=== PATIENT | male | born 1940 | race Caucasian/White ===

== ENCOUNTER 2017-04-27 12:46 | Emergency (ER) | payer MEDICARE, BC ==
--- NOTE | 2017-04-27 13:12 | ER Document Report ---
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 It was then doing fine until 2 days ago when it got inflamed again. He denies remembering getting anything into the finger. Associated Symptoms: None Exacerbated by: Denies Relieved by: Denies Similar symptoms previously: No Recently seen / treated by doctor: No - ROS ROS below otherwise negative: Yes Systems Reviewed and Negative: Yes All other systems reviewed and negative - REPRODUCTIVE Reproductive: DENIES: : Past Medical History - General Information source: Patient - Social History Smoking Status: Never Smoker Frequency of alcohol use: None Drug Abuse: None Lives with: Family Family History: Reviewed & Not Pertinent - Past Medical History Cardiac Medical History: Reports: Hx Coronary Artery Disease, Hx Heart Attack, Hx Hypercholesterolemia, Hx Hypertension Endocrine Medical History: Reports: Hx Diabetes Mellitus Type 2 Renal/ Medical History: Reports: Hx Renal Insufficiency Musculoskeltal Medical History: Reports Hx Arthritis Past Surgical History: Reports: Hx Cardiac Surgery - CABG x4, Hx Kidney (Renal Surgery) - 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 IN LAST 30 DAYS: No - HEENT HEENT: Atraumatic, Normocephalic - NECK Neck: Supple - RESPIRATORY O2 Sat by Pulse Oximetry: 100 - MUSCULOSKELETAL/EXTREMETIES Musculoskeletal/Extremeties: MAEW, FROM, Edema - Mild erythema mild edema to palmar distal phalanx right middle finger. At the DIP he has a healing wound. No pus. - NEURO Level of Consciousness: Awake, Alert Motor/Sensory: No Motor Deficit, No Sensory Deficit Course - Re-evaluation Re-evalutation: 04/27/17 I printed a copy of the x-ray that shows the fine small filaments of foreign body in the subcutaneous tissue of his right third finger and discussed that he will need to see the hand surgeon Dr. St for removal. - Vital Signs Vital signs: Temp Pulse Resp BP Pulse Ox 98.9 F 57 L 14 178/79 H 100 04/27/17 12:52 04/27/17 12:52 04/27/17 12:52 04/27/17 12:52 04/27/17 12:52 Discharge - Discharge Clinical Impression: FB right middle finger Condition: Good Disposition: HOME, SELF-CARE Instructions: Cephalexin ([facility]), Retained Subcutaneous Foreign Object ([facility]) Additional Instructions: call dr. st for removal of the foriegn body to er any signs of increased swelling, fever, increase pain or no pain at all with sweling. Please complete the patient satisfaction survey if you get one, and return it.. If you do not receive a survey, then you can go to the [facility] website, [email or web address] and place your comments about your very good care. Thank you very much. It was a pleasure being your medical provider today. Prescriptions: Cephalexin Monohydrate [Keflex 500 mg Capsule] 500 mg PO QID #28 capsule Referrals: FATEMEH JOHNSON MD [Primary Care Provider] - Follow up as needed
--- NOTE | 2017-04-27 14:31 | RADIOLOGY REPORT (SQ) ---
EXAM DESCRIPTION: FINGER RIGHT COMPLETED DATE/TIME: 04/27/2017 1:53 pm REASON FOR STUDY: possible retained FB COMPARISON: None. NUMBER OF VIEWS: Three views. TECHNIQUE: AP, lateral, and oblique images acquired of the right third finger. LIMITATIONS: None. FINDINGS: MINERALIZATION: Normal. BONES: No acute fracture or dislocation. No worrisome bone lesions. SOFT TISSUES: A very thin radiopaque foreign body is seen in the volar aspect of the right 3rd digit at the level of the distal interphalangeal joint. OTHER: No other significant finding. IMPRESSION: Foreign body. COMMENT: SITE OF TRAUMA/COMPLAINT MARKED/STAMP COMPLETED: Yes TECHNICAL DOCUMENTATION: JOB ID: [id number] [employer]- All Rights Reserved
[2017-04-27 15:01] VITALS: BP 154/70
== END 2017-04-27 15:01 | disposition home or self-care (01) ==
LOC: ER 12:46
DX: S60.452A Superficial foreign body of right middle finger, initial encounter (principal); X58.XXXA Exposure to other specified factors, initial encounter; I25.10 Atherosclerotic heart disease of native coronary artery without angina pectoris; I25.2 Old myocardial infarction; I10 Essential (primary) hypertension; E11.9 Type 2 diabetes mellitus without complications; Z95.1 Presence of aortocoronary bypass graft
CPT/HCPCS: 99283

== ENCOUNTER → 2018-03-15 | Outpatient (CLI) | payer MEDICARE, BC ==
--- NOTE | 2018-03-15 12:43 | RADIOLOGY REPORT (SQ) ---
EXAM DESCRIPTION: MRI LUMBAR SPINE WITHOUT COMPLETED DATE/TIME: 03/15/2018 12:10 pm REASON FOR STUDY: LOW BACK PAIN (M54.5) M54.5 LOW BACK PAIN COMPARISON: None. TECHNIQUE: Sagittal and Axial imaging includes T1, T2, STIR and gradient echo sequences. Coronal T2/ HASTE imaging. LIMITATIONS: None. FINDINGS: VISUALIZED UPPER ABDOMEN: Old right nephrectomy SEGMENTATION: No transitional anatomy. The lowest well-developed disc space is labeled L5-S1. ALIGNMENT: Anatomic. VERTEBRAE: Intact. BONE MARROW: Fatty degenerative endplate changes throughout the lumbar spine DISC SIGNAL: High-grade disc space loss of height. Decreased T2 weighted intervertebral disc signal throughout the spine POSTERIOR ELEMENTS: Generally intact. No pars defect evident. HARDWARE: None in the spine. CORD AND CONUS: Normal in size and signal intensity. Conus at the mid L1 level. SOFT TISSUES: No aortic aneurysm seen. No bulky retroperitoneal adenopathy or mass. No paraspinal mas s or fluid. T10-11: At the upper edge of the field of view. Mild central canal stenosis from broad diffuse disc bulge and bulky bilateral facet hypertrophy. Moderate to high-grade bilateral foraminal narrowing T11-12: Mild central canal stenosis results from broad diffuse posterior disc bulge and bulky bilate ral facet hypertrophy. High-grade bilateral foraminal narrowing. T12-L1: Mild central canal stenosis results from broad diffuse posterior disc bulge and moderate malcom ateral facet and ligament hypertrophy. Moderate bilateral foraminal narrowing is present. L1-L2: Mild central canal stenosis results from broad diffuse posterior disc bulge and bulky bilatera l facet and ligament hypertrophy. Kybv-[id number]-cdbzumxy bilateral foraminal narrowing L2-L3: Mild central canal stenosis results from broad diffuse disc bulge and bony spurring and bulky bilateral facet and ligament hypertrophy. Mild right, mild to moderate left foraminal narrowing. L3-L4: Severe central canal stenosis results from broad diffuse posterior disc bulge and bulky bilate ral facet and ligament hypertrophy. Effacement of the CSF around the lumbar nerve roots. Mild right , mild to moderate left foraminal narrowing without exiting L3 nerve root impingement L4-L5: Severe central canal stenosis results from broad diffuse posterior disc bulge and bony spurrin g and moderate bulky bilateral facet and ligament hypertrophy. Moderate to high-grade right, moderat e left foraminal narrowing. L5-S1: Mild central canal narrowing results from broad diffuse posterior disc bulge with a small cent ral disc protrusion. Mild flattening of the thecal sac at the takeoff of the bilateral S1 nerve root s in the lateral recesses left greater than right. Moderate to high-grade bilateral foraminal narrow ing. SACRUM: Visualized upper sacrum intact. OTHER: No other significant findings. IMPRESSION: Diffuse degenerative changes as above TECHNICAL DOCUMENTATION: JOB ID: [id number] [employer]- All Rights Reserved Reading location - IP/workstation name: [email or web address]
== END ==
LOC: RAD 10:57
PROVIDERS: ATTEND Physician Assistant
DX: M54.5 Low back pain (principal)
CPT/HCPCS: 72148

== ENCOUNTER 2019-02-01 09:53 | Inpatient (IN) | payer MEDICARE, BC ==
[2019-02-01 10:28] LABS: VENOUS BLOOD HCO3 14.1 mmol/L (20-32); VENOUS BLOOD PH 7.25 (7.30-7.42)
[2019-02-01] MEDS ORDERED: NORMAL SALINE 1000 ML 1,000 ML IV ONE ×2 (10:28→11:51)
[2019-02-01 10:29] LABS: ABSOLUTE LYMPHOCYTES (AUTO) 0.6 10^3/uL (0.5-4.7); ABSOLUTE MONOCYTES (AUTO) 0.5 10^3/uL (0.1-1.4); ABSOLUTE NEUT (AUTO) 6.6 10^3/uL (1.7-8.2); BASOPHILS % (AUTO) 0.2 % (0-2); HEMATOCRIT 37.6 % (37.9-51.0); HEMOGLOBIN 12.5 g/dL (13.5-17.0); LYMPHOCYTES % (AUTO) 7.3 % (13-45); MEAN CORPUSCULAR HGB CONC 33.2 g/dL (32.0-36.0); MEAN CORPUSCULAR VOLUME 97 fl (80-97); MONOCYTES % (AUTO) 6.4 % (3-13); PLATELET COUNT 103 10^3/uL (150-450); RED BLOOD COUNT 3.89 10^6/uL (4.35-5.55); RED CELL DISTRIBUTION WIDTH 14.9 % (11.5-14.0); SEGMENTED NEUTROPHILS % (AUTO) 86.1 % (42-78); TOTAL CELLS COUNTED % (AUTO) 100 %; WHITE BLOOD COUNT 7.6 10^3/uL (4.0-10.5)
--- NOTE | 2019-02-01 10:31 | ER Document Report ---
ED Dizziness/Weakness - General Stated Complaint: ALTERED MENTAL STATUS Time Seen by Provider: 02/01/19 10:09 Notes: Patient is a 78-year-old male with a history of type 1 diabetes, triple bypass with AICD placement who presents to the emergency department with altered mental status. Per EMS the reports he was last seen normal at 9 PM last night. She reports they do sleep in separate bedrooms. EMS reports that the patient was not acting quite right yesterday but did have a fall and is more altered this morning. They report that the patient went to sit in a chair when he fell onto his left side. Patient does have an abrasion to the left knee. Patient is confused and having trouble speaking. Patient unable to give history. Patient does deny pain at this time. TRAVEL OUTSIDE OF THE [place] IN LAST 30 DAYS: No - Related Data Allergies/Adverse Reactions: No Known Allergies Allergy (Verified 02/01/19 11:20) Past Medical History - General Cannot obtain history due to: Altered mental status - Social History Smoking Status: Unknown if Ever Smoked Lives with: Family Family History: Reviewed & Not Pertinent - Past Medical History Cardiac Medical History: Reports: Hx Coronary Artery Disease, Hx Heart Attack, Hx Hypercholesterolemia, Hx Hypertension Pulmonary Medical History: Reports: None EENT Medical History: Reports: None Neurological Medical History: Reports: None Endocrine Medical History: Reports: Hx Diabetes Mellitus Type 1 Renal/ Medical History: Reports: Hx Renal Insufficiency. 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, Hx Orthopedic Surgery - right total knee - Immunizations Hx Diphtheria, Pertussis, Tetanus Vaccination: No Review of Systems - Review of Systems Constitutional: See HPI EENT: No symptoms reported Cardiovascular: See HPI Respiratory: No symptoms reported Gastrointestinal: No symptoms reported Genitourinary: No symptoms reported Male Genitourinary: No symptoms reported Musculoskeletal: No symptoms reported Skin: No symptoms reported Hematologic/Lymphatic: No symptoms reported Neurological/Psychological: See HPI Physical Exam - Vital signs Vitals: Pulse Resp BP Pulse Ox 82 17 101/52 L 96 02/01/19 10:00 02/01/19 10:00 02/01/19 10:00 02/01/19 10:00 - Notes Notes: GENERAL: Well-appearing, no acute distress. HEAD: Atraumatic, normocephalic. EYES: Pupils equal round and reactive to light, extraocular movements intact, sclera anicteric, conjunctiva are normal. ENT: Nares patent, oropharynx clear without exudates. Dry mucous membranes. NECK: Normal range of motion, supple without lymphadenopathy or JVD. LUNGS: Breath sounds clear to auscultation bilaterally and equal. No wheezes rales or rhonchi. HEART: Regular rate and rhythm without murmurs, rubs or gallops. ABDOMEN: Soft, nontender, normoactive bowel sounds. No guarding, no rebound. No masses appreciated. BACK: No cervical, thoracic, lumbar midline tenderness. No saddle anesthesia, normal distal neurovascular exam. GENITOURINARY: Deferred. EXTREMITIES: Normal range of motion, no pitting or edema. No clubbing or cyanosis. Abrasion to left knee. NEUROLOGICAL: When asking the patient where he is at; he states "1941," Patient does know his name but does appear to have expressive aphasia, and trouble speaking. + left sided facial droop. Patient unable to perform finger to nose exam, no arm drift noted, unable to perform heel to ramos testing. Did not attempt to walk patient due to complaint and fall. PSYCH: Normal mood, normal affect. SKIN: Warm, Dry, normal turgor, no rashes or lesions noted. Course - Re-evaluation Re-evalutation: 02/01/19 10:30 Patient symptoms are consistent with a stroke. Patient does have a left-sided facial droop with expressive aphasia and difficulty speaking. Patient is only alert to himself and does have repetitive speech. Will obtain a head CT, appropriate lab work, EKG and chest x-ray. While at the bedside patient did have equal semi-strong restaurant hourly team member bilaterally but when attempting to hand him the cup he had difficulty grasping the cup for the p.o. challenge. Patient was able to swallow multiple sips of water without coughing. Will obtain more of a history when the arrived to the emergency department. 02/01/19 10:37 Patient did have an episode of vomiting and coughing. I did order an anti- emetic and for bedside suctioning to be present at all times. Patient to go to CAT scan immediately. Case was briefly discussed with Dr. Rivera who recommends obtaining a CTA of the head and neck. I did speak with CAT scan to change his order. is at the bedside and reports that he was sluggish yesterday but was able to have a conversation it was ambulating without any difficulty. She reports he did go to bed around 9 PM last night. She reports he has been a type I diabetic for most of his life and does wear an insulin pump which was removed throughout the night at some point. She reports around 830 this morning she attempted to wake up the patient to feed him breakfast but he was not acting h imself. She reports he attempted to sit in a chair that was not they are and did not fall on his bottom and caused him to hit the left side. She reports he did not hit his head at that time or lose consciousness. She reports he has had a facial droop and difficulty speaking. She does report that the patient is on Xarelto. 02/01/19 12:13 CT of the head and neck were negative for any acute abnormality. Upon reevaluation patient is fidgety and moving his upper and lower extremities. Patient does remain confused. Patient is getting his second liter of IV fluids. Patient's lab work is consistent with a mild DKA. Urinalysis was unremarkable. Son who is at the bedside states he is seeing his father act like this when he has issues with his sugar. states that patient has been having issues with his insulin pump and she is sure if it has been working. 02/01/19 12:21 Dr. Munson accepts admission and will see patient in the ER. Will continue with 2nd liter of fluid. - Vital Signs Vital signs: Temp Pulse Resp BP Pulse Ox 97.9 F 82 16 99/53 L 99 02/01/19 10:11 02/01/19 10:10 02/01/19 12:06 02/01/19 12:06 02/01/19 11:52 - Laboratory Result Diagrams: 02/01/19 10:07 02/01/19 10:07 Laboratory results interpreted by me: 02/01/19 02/01/19 02/01/19 10:07 10:07 10:07 RBC 3.89 L Hgb 12.5 L Hct 37.6 L RDW 14.9 H Plt Count 103 L Lymph % (Auto) 7.3 L Seg Neutrophils % 86.1 H VBG pH VBG pCO2 VBG HCO3 Potassium 5.7 H Carbon Dioxide 17 L Anion Gap 24 H BUN 49 H Creatinine 1.72 H Est GFR ( Amer) 47 L Est GFR (MDRD) Non-Af 39 L Glucose 357 H POC Glucose Hemoglobin A1c % Lactic Acid 3.2 H Direct Bilirubin 0.5 H Total Protein 5.9 L Urine Ketones Urine Ascorbic Acid 02/01/19 02/01/19 02/01/19 10:07 10:07 10:09 RBC Hgb Hct RDW Plt Count Lymph % (Auto) Seg Neutrophils % VBG pH 7.25 L VBG pCO2 33.0 L VBG HCO3 14.1 L Potassium Carbon Dioxide Anion Gap BUN Creatinine Est GFR ( Amer) Est GFR (MDRD) Non-Af Glucose POC Glucose 353 H Hemoglobin A1c % 6.4 H Lactic Acid Direct Bilirubin Total Protein Urine Ketones Urine Ascorbic Acid 02/01/19 02/01/19 10:37 12:25 RBC Hgb Hct RDW Plt Count Lymph % (Auto) Seg Neutrophils % VBG pH VBG pCO2 VBG HCO3 Potassium Carbon Dioxide Anion Gap BUN Creatinine Est GFR ( Amer) Est GFR (MDRD) Non-Af Glucose POC Glucose 335 H Hemoglobin A1c % Lactic Acid Direct Bilirubin Total Protein Urine Ketones 20 H Urine Ascorbic Acid 20 H 02/01/19 13:54 Laboratory 02/01/19 02/01/19 02/01/19 10:07 10:07 10:07 WBC 7.6 RBC 3.89 L Hgb 12.5 L Hct 37.6 L MCV 97 MCH 32.0 MCHC 33.2 RDW 14.9 H Plt Count 103 L Lymph % (Auto) 7.3 L [place] % (Auto) 6.4 Eos % (Auto) 0.0 Baso % (Auto) 0.2 Absolute Neuts (auto) 6.6 Absolute Lymphs (auto) 0.6 Absolute Monos (auto) 0.5 Absolute Eos (auto) 0.0 Absolute Basos (auto) 0.0 Seg Neutrophils % 86.1 H VBG pH VBG pCO2 VBG HCO3 VBG Base Excess Sodium 138.8 Potassium 5.7 H Chloride 98 Carbon Dioxide 17 L Anion Gap 24 H BUN 49 H Creatinine 1.72 H Est GFR ( Amer) 47 L Est GFR (MDRD) Non-Af 39 L Glucose 357 H POC Glucose Lactic Acid 3.2 H Calcium 9.2 Total Bilirubin 1.3 Direct Bilirubin 0.5 H Neonat Total Bilirubin Not Reportable Neonat Direct Bilirubin Not Reportable Neonat Indirect Bili Not Reportable AST 30 ALT 26 Alkaline Phosphatase 81 Troponin I Total Protein 5.9 L Albumin 3.8 Urine Color Urine Appearance Urine pH Ur Specific [place] Urine Protein Urine Glucose (UA) Urine Ketones Urine Blood Urine Nitrite Urine Bilirubin Urine Urobilinogen Ur Leukocyte Esterase Urine WBC (Auto) Urine RBC (Auto) U Hyaline Cast (Auto) Squamous Epi Cells Auto Urine Mucus (Auto) Urine Ascorbic Acid 02/01/19 02/01/19 02/01/19 10:07 10:07 10:09 WBC RBC Hgb Hct MCV MCH MCHC RDW Plt Count Lymph % (Auto) [place] % (Auto) Eos % (Auto) Baso % (Auto) Absolute Neuts (auto) Absolute Lymphs (auto) Absolute Monos (auto) Absolute Eos (auto) Absolute Basos (auto) Seg Neutrophils % VBG pH 7.25 L VBG pCO2 33.0 L VBG HCO3 14.1 L VBG Base Excess -12.0 Sodium Potassium Chloride Carbon Dioxide Anion Gap BUN Creatinine Est GFR ( Amer) Est GFR (MDRD) Non-Af Glucose POC Glucose 353 H Lactic Acid Calcium Total Bilirubin Direct Bilirubin Neonat Total Bilirubin Neonat Direct Bilirubin Neonat Indirect Bili AST ALT Alkaline Phosphatase Troponin I 0.014 Total Protein Albumin Urine Color Urine Appearance Urine pH Ur Specific [place] Urine Protein Urine Glucose (UA) Urine Ketones Urine Blood Urine Nitrite Urine Bilirubin Urine Urobilinogen Ur Leukocyte Esterase Urine WBC (Auto) Urine RBC (Auto) U Hyaline Cast (Auto) Squamous Epi Cells Auto Urine Mucus (Auto) Urine Ascorbic Acid 02/01/19 02/01/19 10:37 12:25 WBC RBC Hgb Hct MCV MCH MCHC RDW Plt Count Lymph % (Auto) [place] % (Auto) Eos % (Auto) Baso % (Auto) Absolute Neuts (auto) Absolute Lymphs (auto) Absolute Monos (auto) Absolute Eos (auto) Absolute Basos (auto) Seg Neutrophils % VBG pH VBG pCO2 VBG HCO3 VBG Base Excess Sodium Potassium Chloride Carbon Dioxide Anion Gap BUN Creatinine Est GFR ( Amer) Est GFR (MDRD) Non-Af Glucose POC Glucose 335 H Lactic Acid Calcium Total Bilirubin Direct Bilirubin Neonat Total Bilirubin Neonat Direct Bilirubin Neonat Indirect Bili AST ALT Alkaline Phosphatase Troponin I Total Protein Albumin Urine Color YELLOW Urine Appearance SLIGHTLY-CLOUDY Urine pH 5.0 Ur Specific [place] 1.016 Urine Protein NEGATIVE Urine Glucose (UA) NEGATIVE Urine Ketones 20 H Urine Blood NEGATIVE Urine Nitrite NEGATIVE Urine Bilirubin NEGATIVE Urine Urobilinogen NEGATIVE Ur Leukocyte Esterase NEGATIVE Urine WBC (Auto) 1 Urine RBC (Auto) 1 U Hyaline Cast (Auto) 95 Squamous Epi Cells Auto <1 Urine Mucus (Auto) RARE Urine Ascorbic Acid 20 H Lactate is slightly elevated at 3.2. Patient has an elevated BUN and creatinine and a potassium of 5.7. There is no leukocytosis or significant anemia. Patient does not have a urinary tract infection. Patient in a metabolic acidosis with a DKA. - Diagnostic Test Radiology reviewed: Reports reviewed Radiology results interpreted by me: 02/01/19 13:12 Knee X-Ray 02/01/19 10:22 IMPRESSION: No acute osseous abnormality of the left knee. Chest X-Ray 02/01/19 10:23 IMPRESSION: Left basilar atelectasis. Head CTA 02/01/19 10:38 IMPRESSION: NO CTA EVIDENCE OF STENOSIS OR ANEURYSM OF THE [place]. Neck CTA 02/01/19 10:38 IMPRESSION: NORMAL CTA OF THE EXTRA-CRANIAL CAROTID AND VERTEBRAL ARTERIES. Discharge - Discharge Clinical Impression: Confusion, Acidosis, metabolic Altered mental state Qualifiers: Altered mental status type: unspecified Qualified Code(s): R41.82 - Altered mental status, unspecified DKA, type 1 Qualifiers: Diabetes mellitus complication detail: without coma Qualified Code(s): E10.10 - Type 1 diabetes mellitus with ketoacidosis without coma Condition: Stable Disposition: ADMITTED INPATIENT Admitting Provider: Jeimy (Hospitalist) Unit Admitted: [facility]
[2019-02-01] MEDS ORDERED: ONDANSETRON HCL INJ/PF 4 MG/2 ML SDV IV ONE (10:36)
[2019-02-01 10:53] LABS: ALBUMIN 3.8 g/dL (3.5-5.0); ALKALINE PHOSPHATASE 81 U/L (38-126); ANION GAP 24 (5-19); ASPARTATE AMINO TRANSFERASE 30 U/L (17-59); BILIRUBIN,DIRECT 0.5 mg/dL (0.0-0.4); BILIRUBIN,TOTAL 1.3 mg/dL (0.2-1.3); BLOOD UREA NITROGEN 49 mg/dL (7-20); CALCIUM 9.2 mg/dL (8.4-10.2); CARBON DIOXIDE 17 mmol/L (22-30); CHLORIDE 98 mmol/L (98-107); GLUCOSE 357 mg/dL (75-110); POTASSIUM 5.7 mmol/L (3.6-5.0); TOTAL PROTEIN 5.9 g/dL (6.3-8.2)
[2019-02-01 11:26] LABS: APPEARANCE,URINE SLIGHTLY-CLOUDY; BILIRUBIN,URINE NEGATIVE (NEGATIVE); COLOR,URINE YELLOW; GLUCOSE, URINE NEGATIVE (NEGATIVE); KETONES,URINE 20 mg/dL (NEGATIVE); LEUKOCYTE ESTERASE,URINE NEGATIVE (NEGATIVE); NITRITE,URINE NEGATIVE (NEGATIVE); PROTEIN,URINE NEGATIVE (NEGATIVE); URINE SPECIFIC GRAVITY 1.016; UROBILINOGEN,URINE NEGATIVE mg/dL (<2.0)
--- NOTE | 2019-02-01 11:33 | RADIOLOGY REPORT (SQ) ---
EXAM DESCRIPTION: CTA NECK COMPLETED DATE/TIME: 02/01/2019 11:12 am REASON FOR STUDY: AMS COMPARISON: None. TECHNIQUE: Axial dynamic scanning technique with dynamic contrast enhancement through the extra-handicraft or hobby shop manager nial carotid and vertebral arteries. Multiplanar reconstruction. 3-D MIPS and Volume-rendered imag es acquired at the workstation and saved to PACS. Images are reviewed in soft tissue, bone, lung w indows. All CT scanners at this facility use dose modulation, iterative reconstruction, and/or weight based d osing when appropriate to reduce radiation dose to as low as reasonably achievable (ALARA). [facility]: Dose Right [facility]: CareDose [facility]: Dose Right [facility]: Teradose 4D [facility]: GoodChime! CONTRAST TYPE AND DOSE: 69 mL Omnipaque 350- low osmolar. RENAL FUNCTION: Creatinine 1.7 LIMITATIONS: None. FINDINGS: AORTIC ARCH: Normal three-vessel origin. Bilateral subclavian arteries are patent. No d issection. RIGHT CAROTIDS: Patent common, internal and external carotid arteries without suggestion of significa nt stenosis or irregular plaque. No dissection. RIGHT VERTEBRAL: Patent. No dissection. LEFT CAROTIDS: Patent common, internal and external carotid arteries without suggestion of significan t stenosis or irregular plaque. No dissection. LEFT VERTEBRAL: Patent. No dissection. OTHER: No other significant finding. OTHER: 3-D reconstructions confirm findings. IMPRESSION: NORMAL CTA OF THE EXTRA-CRANIAL CAROTID AND VERTEBRAL ARTERIES. COMMENT: Quality ID #[id number]: Measurements of distal internal carotid diameter were used as the denomina tor for stenosis measurement. TECHNICAL DOCUMENTATION: JOB ID: [id number] Quality ID # [id number]: Final reports with documentation of one or more dose reduction techniques (e.g., Au tomated exposure control, adjustment of the mA and/or kV according to patient size, use of iterative reconstruction technique) 2010 [employer]- All Rights Reserved Reading location - IP/workstation name: [email or web address]
--- NOTE | 2019-02-01 11:35 | RADIOLOGY REPORT (SQ) ---
EXAM DESCRIPTION: KNEE LEFT 3 VIEWS COMPLETED DATE/TIME: 02/01/2019 11:17 am REASON FOR STUDY: fall, abrasion left knee COMPARISON: None. NUMBER OF VIEWS: Four views. TECHNIQUE: AP, lateral, and both oblique radiographic images acquired of the left knee. LIMITATIONS: None. FINDINGS: MINERALIZATION: Normal. BONES: No acute fracture or dislocation. JOINT: No effusion or evidence of lipoma hemarthrosis. SOFT TISSUES: No swelling. The quadriceps and patellar tendon silhouettes are intact OTHER: Vascular calcifications and surgical clips. IMPRESSION: No acute osseous abnormality of the left knee. TECHNICAL DOCUMENTATION: JOB ID: [id number] [employer]- All Rights Reserved Reading location - IP/workstation name: [email or web address]
--- NOTE | 2019-02-01 11:38 | RADIOLOGY REPORT (SQ) ---
EXAM DESCRIPTION: CTA HEAD COMPLETED DATE/TIME: 02/01/2019 11:12 am REASON FOR STUDY: AMS COMPARISON: None. TECHNIQUE: Post IV contrast scanning, thin section axial imaging through the brain to evaluate the a rterial structures. Source and MIP images are saved and reviewed on PACS. Advanced 3D imaging as volume-rendering, MIPs, SSD performed? yes All CT scanners at this facility use dose modulation, iterative reconstruction, and/or weight based d osing when appropriate to reduce radiation dose to as low as reasonably achievable (ALARA). [facility]: Dose Right [facility]: CareDose [facility]: Dose Right [facility]: Teradose 4D [facility]: monEchelle CONTRAST TYPE AND DOSE: contrast/concentration: Isovue 350.00 mg/ml; Total Contrast Delivered: 69.0 ml; Total Saline Delivered: 72.0 ml RENAL FUNCTION: Creatinine 1.7 LIMITATIONS: None. FINDINGS: [place]: The anterior, middle, posterior cerebral arteries are all patent. No ev idence of aneurysm or focal stenosis. POSTERIOR CIRCULATION: The distal vertebral arteries are patent as is the basilar artery. No aneurysm . BRAIN: No gross enhancing lesions. Involutional changes with mild chronic microvascular ischemia. BONES: Intact as visualized. SINUSES: No fluid or mucosal thickening. OTHER: No other significant finding. IMPRESSION: NO CTA EVIDENCE OF STENOSIS OR ANEURYSM OF THE [place]. TECHNICAL DOCUMENTATION: JOB ID: [id number] Quality ID # [id number]: Final reports with documentation of one or more dose reduction techniques (e.g., Au tomated exposure control, adjustment of the mA and/or kV according to patient size, use of iterative reconstruction technique) 2010 [employer]- All Rights Reserved Reading location - IP/workstation name: [email or web address]
--- NOTE | 2019-02-01 11:38 | RADIOLOGY REPORT (SQ) ---
EXAM DESCRIPTION: CHEST SINGLE VIEW COMPLETED DATE/TIME: 02/01/2019 11:17 am REASON FOR STUDY: altered, cough COMPARISON: None. EXAM PARAMETERS: NUMBER OF VIEWS: One view. TECHNIQUE: Single frontal radiographic view of the chest acquired. RADIATION DOSE: NA LIMITATIONS: None. FINDINGS: LUNGS AND PLEURA: Left basilar atelectasis. There is no consolidation, sizeable pleural e ffusion or pneumothorax. MEDIASTINUM AND HILAR STRUCTURES: Unchanged mediastinal and hilar contours HEART AND VASCULAR STRUCTURES: The cardiac silhouette and pulmonary vasculature are within normal good its given AP technique. BONES: No acute findings. HARDWARE: Sternotomy wires, mediastinal clips, and left subclavian approach ICD. OTHER: No other finding. IMPRESSION: Left basilar atelectasis. TECHNICAL DOCUMENTATION: JOB ID: [id number] [employer]- All Rights Reserved Reading location - IP/workstation name: [email or web address]
[2019-02-01] MEDS ORDERED: GLUCAGON,HUMAN RECOMB 1 MG INJ IM PRN ×2 (13:15→13:30)
[2019-02-01] MEDS ORDERED: NORMAL SALINE 100 ML with INSULIN REGULAR, HUMAN 100 UNIT IV PRN ×2 (13:15)
[2019-02-01] MEDS ORDERED: DEXTROSE 40% GEL 15 GM TUBE PO PRN ×6 (13:15→13:35)
[2019-02-01] MEDS ORDERED: DEXTROSE 50%-WATER 25 GM/50 ML DISP.SYRIN IV PRN ×6 (13:15→13:35)
[2019-02-01] MEDS ORDERED: GLUCAGON,HUMAN RECOMB 1 MG INJ SUBCUT PRN (13:35)
--- NOTE | 2019-02-01 14:47 | PDOC H&P ---
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 Patient was reportedly not acting right yesterday and had a fall incident this morning. He was reportedly having trouble speaking and was not very coherent. He reportedly had a mild left facial droop in the ER hence a CTA of the head and neck was done and this came back unremarkable. Upon encounter in the ER, patient is arousable. He is able to tell me his name. He denies acute complaints to me but is not oriented to time or place. He denies headache, chest pain or shortness of breath. RN reports that patient has been having issues with a malfunctioning insulin pump lately. Based on prior admissions, he was admitted before due to DKA and presented with acute confus ion. Past Medical History Cardiac Medical History: Reports: Coronary Artery Disease, Myocardial Infarction, Hyperlipidema, Hypertension Pulmonary Medical History: Reports: None EENT Medical History: Reports: None Neurological Medical History: Reports: None Endocrine Medical History: Reports: Diabetes Mellitus Type 1 Malignancy Medical History: Reports: None GI Medical History: Reports: None Musculoskeltal Medical History: Reports: Arthritis Skin Medical History: Reports: None Psychiatric Medical History: Reports: None Traumatic Medical History: Reports: None Infectious Medical History: Reports: None Past Surgical History Past Surgical History: Reports: Orthopedic Surgery - right total knee Social History Lives with: Family Smoking Status: Never Smoker Frequency of Alcohol Use: None Hx Recreational Drug Use: No Hx Prescription Drug Abuse: No Family History Family History: Reviewed & Not Pertinent Parental Family History Reviewed: Yes - no premature CAD Children Family History Reviewed: No Sibling(s) Family History Reviewed.: No Medication/Allergy Home Medications: Apedria 150 units SUBCUT CONTINUOUS PRN 11/01/12 Aspirin [Ecotrin 81 mg EC Tablet] 81 mg PO DAILY 11/01/12 Lisinopril 5 mg PO DAILY 11/01/12 Dorzolamide HCl/Timolol Maleat [Cosopt Oph Soln 10 ml] 2.23 bottle OS BID 11/02/12 Bimatoprost [Lumigan 0.01% Oph Soln 2.5 ml/Bottle] 1 drop DAILY 12/22/15 Carvedilol [Coreg 12.5 mg Tablet] 12.5 mg PO Q12 12/22/15 Pravastatin Sodium 40 mg PO QHS 12/22/15 Cephalexin Monohydrate [Keflex 500 mg Capsule] 500 mg PO QID #28 capsule 04/27/17 Allergies/Adverse Reactions: No Known Allergies Allergy (Verified 02/01/19 11:20) Review of Systems All systems: reviewed and no additional remarkable complaints except as stated - as mentioned in HPI Physical Exam Vital Signs: Temp Pulse Resp BP Pulse Ox 97.9 F 82 16 99/53 L 99 02/01/19 10:11 02/01/19 10:10 02/01/19 12:06 02/01/19 12:06 02/01/19 11:52 Intake & Output 01/31/19 02/01/19 02/02/19 06:59 06:59 06:59 Intake Total 1999 Balance 1999 Weight 190 lb 0.615 oz General appearance: PRESENT: no acute distress, well-developed, well-nourished Head exam: PRESENT: atraumatic, normocephalic Eye exam: PRESENT: conjunctiva pink, EOMI, PERRLA. ABSENT: scleral icterus Ear exam: PRESENT: normal external ear exam Mouth exam: PRESENT: moist, tongue midline Neck exam: ABSENT: carotid bruit, JVD, lymphadenopathy, thyromegaly Respiratory exam: PRESENT: clear to auscultation malcom. ABSENT: rales, rhonchi, wheezes Cardiovascular exam: PRESENT: RRR. ABSENT: diastolic murmur, rubs, systolic mu rmur Pulses: PRESENT: normal dorsalis pedis pul GI/Abdominal exam: PRESENT: normal bowel sounds, soft. ABSENT: distended, guarding, mass, organolmegaly, rebound, tenderness Rectal exam: PRESENT: deferred Neurological exam: PRESENT: awake, oriented to person, CN II-XII grossly intact. ABSENT: oriented to place, oriented to time, oriented to situation, motor sensory deficit Results Laboratory Results: 02/01/19 10:07 02/01/19 10:07 02/01/19 02/01/19 02/01/19 10:07 10:07 10:07 WBC 7.6 RBC 3.89 L Hgb 12.5 L Hct 37.6 L MCV 97 MCH 32.0 MCHC 33.2 RDW 14.9 H Plt Count 103 L Seg Neutrophils % 86.1 H VBG pH VBG pCO2 VBG HCO3 VBG Base Excess Sodium 138.8 Potassium 5.7 H Chloride 98 Carbon Dioxide 17 L Anion Gap 24 H BUN 49 H Creatinine 1.72 H Est GFR ( Amer) 47 L Glucose 357 H Lactic Acid 3.2 H Calcium 9.2 Total Bilirubin 1.3 AST 30 Alkaline Phosphatase 81 Total Protein 5.9 L Albumin 3.8 Urine Color Urine Appearance Urine pH Ur Specific [place] Urine Protein Urine Glucose (UA) Urine Ketones Urine Blood Urine Nitrite Ur Leukocyte Esterase Urine WBC (Auto) Urine RBC (Auto) 02/01/19 02/01/19 10:07 10:37 WBC RBC Hgb Hct MCV MCH MCHC RDW Plt Count Seg Neutrophils % VBG pH 7.25 L VBG pCO2 33.0 L VBG HCO3 14.1 L VBG Base Excess -12.0 Sodium Potassium Chloride Carbon Dioxide Anion Gap BUN Creatinine Est GFR ( Amer) Glucose Lactic Acid Calcium Total Bilirubin AST Alkaline Phosphatase Total Protein Albumin Urine Color YELLOW Urine Appearance SLIGHTLY-CLOUDY Urine pH 5.0 Ur Specific [place] 1.016 Urine Protein NEGATIVE Urine Glucose (UA) NEGATIVE Urine Ketones 20 H Urine Blood NEGATIVE Urine Nitrite NEGATIVE Ur Leukocyte Esterase NEGATIVE Urine WBC (Auto) 1 Urine RBC (Auto) 1 02/01/19 10:07 Troponin I 0.014 Impressions: Knee X-Ray 02/01/19 10:22 IMPRESSION: No acute osseous abnormality of the left knee. Chest X-Ray 02/01/19 10:23 IMPRESSION: Left basilar atelectasis. Head CTA 02/01/19 10:38 IMPRESSION: NO CTA EVIDENCE OF STENOSIS OR ANEURYSM OF THE [place]. Neck CTA 02/01/19 10:38 IMPRESSION: NORMAL CTA OF THE EXTRA-CRANIAL CAROTID AND VERTEBRAL ARTERIES. Assessment and Plan - Diagnosis (1) Acute encephalopathy Is this a current diagnosis for this admission?: Yes Plan: Likely related to DKA. CTA of the head and neck was unremarkable. No nuchal rigidity, Kernig's or Brudzinski's signs on examination. Chest x-ray and urinalysis are unremarkable. Based on prior admissions, he was admitted before due to DKA and presented with acute confusion. (2) DKA (diabetic ketoacidoses) Qualifiers: Diabetes mellitus type: type 1 Diabetes mellitus complication detail: without coma Qualified Code(s): E10.10 - Type 1 diabetes mellitus with ketoacidosis without coma Is this a current diagnosis for this admission?: Yes Plan: He has received 2 L of fluid bolus in the ER. Will continue cautious hydration with normal saline 100 cc/h due to his congestive heart failure. We will start him on insulin drip. BMP every 4 hours. Accu-Cheks q. hourly. (3) Lactic acidosis Is this a current diagnosis for this admission?: Yes Plan: IV fluids as mentioned. Repeat lactic acid. (4) Acute on chronic renal failure Is this a current diagnosis for this admission?: Yes Plan: IV fluids as mentioned. Repeat BMP. (5) Hyperkalemia Is this a current diagnosis for this admission?: Yes Plan: Related to his DKA. (6) CAD (coronary artery disease) Is this a current diagnosis for this admission?: Yes Plan: Stable. (7) CHF (congestive heart failure) Is this a current diagnosis for this admission?: Yes Plan: Resume home meds once verified. Cautious hydration. - Time Time Spent with patient: 25-34 minutes
[2019-02-01] MEDS: NORMAL SALINE 1000 ML 1,000 ML IV PRN ×2 (14:48→22:33)
[2019-02-01] MEDS: NORMAL SALINE 100 ML with INSULIN REGULAR, HUMAN 100 UNIT IV PRN ×4 (14:53→22:29)
[2019-02-01 15:20] LABS: BLOOD UREA NITROGEN 52 mg/dL (7-20); CALCIUM 8.5 mg/dL (8.4-10.2); GLUCOSE 384 mg/dL (75-110)
[2019-02-01 15:30] LABS: CARBON DIOXIDE 13 mmol/L (22-30); CHLORIDE 101 mmol/L (98-107)
[2019-02-01 15:32] LABS: ANION GAP 23 (5-19)
[2019-02-01] MEDS ORDERED: INSULIN REG, HUMAN 100 UNIT/ML 3 ML VIAL (PYX) IV ONE (16:45)
[2019-02-01] MEDS ORDERED: HEPARIN SOD (PORCINE) 5,000 UNIT/ML 1 ML VIAL SUBCUT SCH (22:00)
--- NOTE | 2019-02-01 23:02 | EKG REPORT ---
SEVERITY:- ABNORMAL ECG - ATRIAL-PACED COMPLEXES VENTRICULAR PREMATURE COMPLEX FIRST DEGREE AV BLOCK ANTERIOR INFARCT, OLD : Confirmed by: Mary Kay Pizarro MD 01-Feb-2019 23:02:09
[2019-02-02 00:03] LABS: ANION GAP 12 (5-19); BLOOD UREA NITROGEN 63 mg/dL (7-20); CALCIUM 8.3 mg/dL (8.4-10.2); CARBON DIOXIDE 21 mmol/L (22-30); CHLORIDE 104 mmol/L (98-107); GLUCOSE 238 mg/dL (75-110)
[2019-02-02 00:09] LABS: POTASSIUM 3.9 mmol/L (3.6-5.0)
[2019-02-02] MEDS: POTASSI CL 20 MEQ/1/2NS 1L 1000 ML IV PRN ×2 (00:55→06:35)
[2019-02-02] MEDS ORDERED: NORMAL SALINE 1000 ML 1,000 ML IV ONE (05:30)
[2019-02-02] MEDS ORDERED: INSULIN REG, HUMAN 100 UNIT/ML 3 ML VIAL (PYX) IV ONE ×2 (05:30→23:00)
[2019-02-02] MEDS ORDERED: INSULIN LISPRO 100 UNIT/ML 3 ML VIAL SUBCUT SCH (06:00)
[2019-02-02 06:33] LABS: ANION GAP 10 (5-19); BLOOD UREA NITROGEN 70 mg/dL (7-20); CALCIUM 8.1 mg/dL (8.4-10.2); CARBON DIOXIDE 21 mmol/L (22-30); CHLORIDE 107 mmol/L (98-107); GLUCOSE 196 mg/dL (75-110); POTASSIUM 4.7 mmol/L (3.6-5.0)
[2019-02-02] MEDS: NORMAL SALINE 1000 ML 1,000 ML IV PRN ×2 (08:40→17:36)
[2019-02-02] MEDS: RIVAROXABAN 10 MG TABLET PO SCH (09:01)
[2019-02-02] MEDS: SOTALOL HCL 80 MG TABLET PO SCH ×2 (09:01→17:29)
[2019-02-02] MEDS: TAMSULOSIN HCL 0.4 MG CAP.SR.24H PO SCH (09:01)
[2019-02-02] MEDS ORDERED: INSULIN GLARGINE,HUM.REC.ANLOG 1,000 UNIT/10 ML VIAL SUBCUT SCH (10:00)
[2019-02-02] MEDS: INSULIN LISPRO 100 UNIT/ML 3 ML VIAL SUBCUT SCH ×3 (12:40→23:21)
[2019-02-02 12:48] LABS: ANION GAP 13 (5-19); BLOOD UREA NITROGEN 71 mg/dL (7-20); CALCIUM 7.9 mg/dL (8.4-10.2); CARBON DIOXIDE 16 mmol/L (22-30); CHLORIDE 106 mmol/L (98-107); GLUCOSE 351 mg/dL (75-110)
[2019-02-02 12:50] LABS: POTASSIUM 5.7 mmol/L (3.6-5.0)
--- NOTE | 2019-02-02 13:37 | PDOC PROGRESS REPORT ---
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 He was admitted for acute likely secondary to DKA. Patient was started on insulin drip and IV fluids. DKA resolved this morning and he has been off insulin drip. Upon encounter, patient is much more awake and conversant. He is actually oriented x3 and son says that he is almost at his baseline. He denies acute complaints. He does say that he has been having problems with his insulin pump. Reason For Visit: ACUTE ENCEPHALOPATHY,DKA Physical Exam Vital Signs: Temp Pulse Resp BP Pulse Ox 97.7 F 67 18 95/43 L 81 L 02/02/19 08:03 02/02/19 08:03 02/02/19 08:03 02/02/19 08:03 02/02/19 08:03 Intake & Output 02/01/19 02/02/19 02/03/19 06:59 06:59 06:59 Intake Total 4037 2490 Output Total 240 Balance 3797 2490 Weight 199 lb 4.766 oz General appearance: PRESENT: no acute distress, well-developed, well-nourished Head exam: PRESENT: atraumatic, normocephalic Eye exam: PRESENT: conjunctiva pink, EOMI, PERRLA. ABSENT: scleral icterus Ear exam: PRESENT: normal external ear exam Mouth exam: PRESENT: moist, tongue midline Neck exam: ABSENT: carotid bruit, JVD, lymphadenopathy, thyromegaly Respiratory exam: PRESENT: clear to auscultation malcom. ABSENT: rales, rhonchi, wheezes Cardiovascular exam: PRESENT: RRR. ABSENT: diastolic murmur, rubs, systolic murmur Pulses: PRESENT: normal dorsalis pedis pul GI/Abdominal exam: PRESENT: normal bowel sounds, soft. ABSENT: distended, guarding, mass, organolmegaly, rebound, tenderness Rectal exam: PRESENT: deferred Extremities exam: PRESENT: full ROM. ABSENT: calf tenderness, clubbing, pedal edema Neurological exam: PRESENT: alert, awake, oriented to person, oriented to place, oriented to time, CN II-XII grossly intact. ABSENT: motor sensory deficit Results Laboratory Results: 02/01/19 10:07 02/02/19 06:07 02/01/19 02/01/19 02/01/19 14:32 14:32 14:32 Sodium 136.6 L Cancelled Potassium 6.0 H* Cancelled Chloride 101 Cancelled Carbon Dioxide 13 L Cancelled Anion Gap 23 H Cancelled BUN 52 H Cancelled Creatinine 1.70 H Cancelled Est GFR ( Amer) 48 L Cancelled Est GFR (Non-Af Amer) Cancelled Glucose 384 H Cancelled Lactic Acid 3.1 H Calcium 8.5 Cancelled 02/01/19 02/01/19 02/02/19 20:58 23:28 06:07 Sodium 136.8 L 137.8 Potassium 3.9 D 4.7 Chloride 104 107 Carbon Dioxide 21 L 21 L Anion Gap 12 10 BUN 63 H 70 H Creatinine 2.11 H 2.10 H Est GFR ( Amer) 37 L 37 L Est GFR (Non-Af Amer) Glucose 238 H 196 H Lactic Acid 2.8 H Calcium 8.3 L 8.1 L 02/02/19 06:07 Sodium Potassium Chloride Carbon Dioxide Anion Gap BUN Creatinine Est GFR ( Amer) Est GFR (Non-Af Amer) Glucose Lactic Acid 1.6 Calcium 02/01/19 10:07 Troponin I 0.014 Impressions: Knee X-Ray 02/01/19 10:22 IMPRESSION: No acute osseous abnormality of the left knee. Chest X-Ray 02/01/19 10:23 IMPRESSION: Left basilar atelectasis. Head CTA 02/01/19 10:38 IMPRESSION: NO CTA EVIDENCE OF STENOSIS OR ANEURYSM OF THE [place]. Neck CTA 02/01/19 10:38 IMPRESSION: NORMAL CTA OF THE EXTRA-CRANIAL CAROTID AND VERTEBRAL ARTERIES. Assessment and Plan - Diagnosis (1) Acute encephalopathy Is this a current diagnosis for this admission?: Yes Plan: Almost resolved. Likely related to DKA. (2) DKA (diabetic ketoacidoses) Qualifiers: Diabetes mellitus type: type 1 Diabetes mellitus complication detail: without coma Qualified Code(s): E10.10 - Type 1 diabetes mellitus with ketoacidosis without coma Is this a current diagnosis for this admission?: Yes Plan: Resolved. Will transition patient to Lantus for now. We will repeat another BMP. He says that he will have his insulin pump checked at his PCPs office next week. (3) Lactic acidosis Is this a current diagnosis for this admission?: Yes Plan: Resolved with IV fluids. (4) Acute on chronic renal failure Is this a current diagnosis for this admission?: Yes Plan: Continue IV fluids. (5) Hyperkalemia Is this a current diagnosis for this admission?: Yes Plan: Related to his DKA. (6) CAD (coronary artery disease) Is this a current diagnosis for this admission?: Yes Plan: Stable. (7) CHF (congestive heart failure) Is this a current diagnosis for this admission?: Yes Plan: Stable. Cautious hydration. - Time Time Spent with patient: 25-34 minutes
[2019-02-02 18:43] LABS: ANION GAP 10 (5-19); BLOOD UREA NITROGEN 77 mg/dL (7-20); CALCIUM 8.1 mg/dL (8.4-10.2); CARBON DIOXIDE 20 mmol/L (22-30); CHLORIDE 105 mmol/L (98-107); POTASSIUM 5.1 mmol/L (3.6-5.0)
[2019-02-02 18:54] LABS: GLUCOSE 425 mg/dL (75-110)
[2019-02-02 22:31] LABS: ANION GAP 9 (5-19); BLOOD UREA NITROGEN 78 mg/dL (7-20); CARBON DIOXIDE 21 mmol/L (22-30); CHLORIDE 104 mmol/L (98-107); POTASSIUM 5.6 mmol/L (3.6-5.0)
[2019-02-02 22:40] LABS: GLUCOSE 408 mg/dL (75-110)
[2019-02-02] MEDS ORDERED: HUM INSULIN NPH/REG INSULIN HM 100 UNIT/1 ML 3 ML SUBCUT ONE (23:07)
[2019-02-02] MEDS: INSULIN GLARGINE,HUM.REC.ANLOG 1,000 UNIT/10 ML VIAL SUBCUT SCH (23:22)
[2019-02-03] MEDS: NORMAL SALINE 1000 ML 1,000 ML IV PRN (00:54)
[2019-02-03 07:04] LABS: ANION GAP 11 (5-19); BLOOD UREA NITROGEN 81 mg/dL (7-20); CALCIUM 8.1 mg/dL (8.4-10.2); CARBON DIOXIDE 20 mmol/L (22-30); CHLORIDE 107 mmol/L (98-107); GLUCOSE 167 mg/dL (75-110)
[2019-02-03] MEDS ORDERED: FUROSEMIDE INJ/PF 40 MG/4 ML SDV IV ONE (08:45)
--- NOTE | 2019-02-03 09:14 | RADIOLOGY REPORT (SQ) ---
EXAM DESCRIPTION: CHEST SINGLE VIEW COMPLETED DATE/TIME: 02/03/2019 8:56 am REASON FOR STUDY: Auscultation of wheezes and crackles COMPARISON: 02/01 FINDINGS: Single-view chest AP portable upright. Ill-defined airspace infiltrates have developed, left upper lobe and right perihilar. Low lung volum es. No pneumothorax. No significant pleural effusion. Pacer remains in place. TECHNICAL DOCUMENTATION: JOB ID: [id number] Reading location - IP/workstation name: [email or web address]
[2019-02-03] MEDS ORDERED: IPRATROPIUM/ALBUTEROL 0.5-2.5 MG/3 ML AMPUL NEB PRN (09:16)
[2019-02-03] MEDS: INSULIN LISPRO 100 UNIT/ML 3 ML VIAL SUBCUT SCH ×4 (09:21→21:33)
[2019-02-03] MEDS: SOTALOL HCL 80 MG TABLET PO SCH ×2 (10:59→17:34)
[2019-02-03] MEDS: TAMSULOSIN HCL 0.4 MG CAP.SR.24H PO SCH (10:59)
[2019-02-03] MEDS: RIVAROXABAN 10 MG TABLET PO SCH (10:59)
[2019-02-03] MEDS: INSULIN GLARGINE,HUM.REC.ANLOG 1,000 UNIT/10 ML VIAL SUBCUT SCH ×2 (11:00→21:33)
[2019-02-03] MEDS: CEFTRIAXONE 1 GM/D5W RTU 1 GM/50 ML RTUPB IV SCH (12:18)
--- NOTE | 2019-02-03 12:27 | RADIOLOGY REPORT (SQ) ---
EXAM DESCRIPTION: CT CHEST WITHOUT COMPLETED DATE/TIME: 02/03/2019 12:09 pm REASON FOR STUDY: hypoxia COMPARISON: Recent radiographs. TECHNIQUE: CT scan performed of the chest without intravenous contrast. Images reviewed with lung, soft tissue and bone windows. Reconstructed coronal and sagittal MPR images reviewed. All images st ored on PACS. All CT scanners at this facility use dose modulation, iterative reconstruction, and/or weight based d osing when appropriate to reduce radiation dose to as low as reasonably achievable (ALARA). [facility]: Dose Right [facility]: CareDose [facility]: Dose Right [facility]: Teradose 4D [facility]: [employer] RADIATION DOSE: CT Rad equipment meets quality standard of care and radiation dose reduction techniq ues were employed. CTDIvol: 14.3 mGy. DLP: 576 mGy-cm. mGy. LIMITATIONS: No technical limitations. FINDINGS: LUNGS AND PLEURA: Bilateral pleural effusions, moderate on the right and slightly smaller on the left. Associated volume loss and consolidation dependently in the lower lobes. Areas of exte nsive ground-glass infiltrate and upper lobes bilaterally. Minimally in the apex of the left lower l obe. Mild pleural calcification on the right. HILAR AND MEDIASTINAL STRUCTURES: Small nodes. No bulky adenopathy. No abnormal gas. HEART AND VASCULAR STRUCTURES: Previous CABG. No aortic aneurysm. No pericardial effusion. Mild ca rdiomegaly. UPPER ABDOMEN: Probable cholelithiasis. Potential mild ascites. Incompletely assessed. THYROID AND OTHER SOFT TISSUES: Suspect mild subcutaneous edema generally in the dependent and latera l chest wall. BONES: No significant finding. HARDWARE: Left cardiac device with artifact. OTHER: No other significant findings. IMPRESSION: 1. Findings likely reflecting congestive failure. Cardiomegaly with bilateral effusions and upper lo be ground-glass infiltrates/edema. TECHNICAL DOCUMENTATION: JOB ID: [id number] Quality ID # [id number]: Final reports with documentation of one or more dose reduction techniques (e.g., Au tomated exposure control, adjustment of the mA and/or kV according to patient size, use of iterative reconstruction technique) 2010 [employer]- All Rights Reserved Reading location - IP/workstation name: [email or web address]
--- NOTE | 2019-02-03 14:12 | PDOC PROGRESS REPORT ---
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 He was admitted for acute likely secondary to DKA. 02/02: Patient was started on insulin drip and IV fluids. DKA resolved this mo rning and he has been off insulin drip. Upon encounter, patient is much more awake and conversant. He is actually oriented x3 and son says that he is almost at his baseline. He denies acute complaints. He does say that he has been having problems with his insulin pump. 02/03: Patient desaturated into high 80s early this morning and was slightly tachypneic. Upon encounter, he appears comfortable and denies shortness of breath or chest pain. His confusion has resolved and he is back to his baseline mentation. BNP was significantly elevated. Chest CT pursued and showed changes suggestive of pulmonary congestion. Discontinue IV fluids. Patient will be given a dose of IV Lasix. Reason For Visit: ACUTE ENCEPHALOPATHY,DKA Physical Exam Vital Signs: Temp Pulse Resp BP Pulse Ox 97.3 F 51 L 20 155/67 H 95 02/03/19 11:39 02/03/19 11:39 02/03/19 11:39 02/03/19 11:39 02/03/19 11:39 Intake & Output 02/02/19 02/03/19 02/04/19 06:59 06:59 06:59 Intake Total 4037 4986 804 Output Total 240 300 Balance 3797 4686 804 Weight 199 lb 4.766 oz 209 lb 14.081 oz General appearance: PRESENT: no acute distress, well-developed, well-nourished Head exam: PRESENT: atraumatic, normocephalic Eye exam: PRESENT: conjunctiva pink, EOMI, PERRLA. ABSENT: scleral icterus Ear exam: PRESENT: normal external ear exam Mouth exam: PRESENT: moist, tongue midline Neck exam: ABSENT: carotid bruit, JVD, lymphadenopathy, thyromegaly Respiratory exam: PRESENT: rales, rhonchi, wheezes Cardiovascular exam: PRESENT: RRR. ABSENT: diastolic murmur, rubs, systolic murmur Pulses: PRESENT: normal dorsalis pedis pul GI/Abdominal exam: PRESENT: normal bowel sounds, soft. ABSENT: distended, guarding, mass, organolmegaly, rebound, tenderness Rectal exam: PRESENT: deferred Neurological exam: PRESENT: alert, awake, oriented to person, oriented to place, oriented to time, oriented to situation, CN II-XII grossly intact. ABSENT: motor sensory deficit Results Laboratory Results: 02/01/19 10:07 02/03/19 06:35 02/02/19 02/02/19 02/03/19 18:10 21:50 06:35 Sodium 135.2 L 134.0 L 137.9 Potassium 5.1 H 5.6 H 5.0 Chloride 105 104 107 Carbon Dioxide 20 L 21 L 20 L Anion Gap 10 9 11 BUN 77 H 78 H 81 H Creatinine 2.44 H 2.51 H 2.41 H Est GFR ( Amer) 31 L 30 L 32 L Glucose 425 H* 408 H* 167 H Calcium 8.1 L 8.0 L 8.1 L 02/01/19 02/03/19 10:07 08:37 Troponin I 0.014 NT-Pro-B Natriuret Pep 40153 H Impressions: Knee X-Ray 02/01/19 10:22 IMPRESSION: No acute osseous abnormality of the left knee. Head CTA 02/01/19 10:38 IMPRESSION: NO CTA EVIDENCE OF STENOSIS OR ANEURYSM OF THE [place]. Neck CTA 02/01/19 10:38 IMPRESSION: NORMAL CTA OF THE EXTRA-CRANIAL CAROTID AND VERTEBRAL ARTERIES. Chest CT 02/03/19 09:47 IMPRESSION: 1. Findings likely reflecting congestive failure. Cardiomegaly with bilateral effusions and upper lobe ground-glass infiltrates/edema. Assessment and Plan - Diagnosis (1) Acute encephalopathy Is this a current diagnosis for this admission?: Yes Plan: Resolved. Likely related to DKA. (2) Pulmonary congestion Is this a current diagnosis for this admission?: Yes Plan: Discontinue IV fluids. Will give a dose of IV Lasix. (3) DKA (diabetic ketoacidoses) Qualifiers: Diabetes mellitus type: type 1 Diabetes mellitus complication detail: without coma Qualified Code(s): E10.10 - Type 1 diabetes mellitus with ketoacidosis without coma Is this a current diagnosis for this admission?: Yes Plan: 02/02: Resolved. Will transition patient to Lantus for now. We will repeat another BMP. He says that he will have his insulin pump checked at his PCPs office next week. 02/03: Increase Lantus to 15 units twice daily. (4) Lactic acidosis Is this a current diagnosis for this admission?: Yes Plan: Resolved with IV fluids. (5) Acute on chronic renal failure Is this a current diagnosis for this admission?: Yes Plan: DC IV fluids. Repeat BMP. (6) Hyperkalemia Is this a current diagnosis for this admission?: Yes Plan: Related to his DKA. (7) CAD (coronary artery disease) Is this a current diagnosis for this admission?: Yes Plan: Stable. (8) CHF (congestive heart failure) Is this a current diagnosis for this admission?: Yes Plan: 02/02: Stable. Cautious hydration. 02/03: Patient developed pulmonary congestion likely related to IV fluids for his DKA. Will give IV Lasix.
[2019-02-03 15:34] LABS: ANION GAP 10 (5-19); BLOOD UREA NITROGEN 80 mg/dL (7-20); CALCIUM 8.5 mg/dL (8.4-10.2); CARBON DIOXIDE 22 mmol/L (22-30); CHLORIDE 106 mmol/L (98-107); GLUCOSE 205 mg/dL (75-110); POTASSIUM 5.3 mmol/L (3.6-5.0)
[2019-02-04 06:21] LABS: ANION GAP 9 (5-19); BLOOD UREA NITROGEN 80 mg/dL (7-20); CALCIUM 8.3 mg/dL (8.4-10.2); CARBON DIOXIDE 22 mmol/L (22-30); CHLORIDE 107 mmol/L (98-107); GLUCOSE 184 mg/dL (75-110)
[2019-02-04] MEDS: INSULIN LISPRO 100 UNIT/ML 3 ML VIAL SUBCUT SCH ×4 (08:15→22:26)
[2019-02-04] MEDS: RIVAROXABAN 10 MG TABLET PO SCH (09:56)
[2019-02-04] MEDS: TAMSULOSIN HCL 0.4 MG CAP.SR.24H PO SCH (09:57)
[2019-02-04] MEDS: FUROSEMIDE INJ/PF 40 MG/4 ML SDV IV SCH (09:57)
[2019-02-04] MEDS: INSULIN GLARGINE,HUM.REC.ANLOG 1,000 UNIT/10 ML VIAL SUBCUT SCH ×2 (09:57→22:27)
[2019-02-04] MEDS: METHYLPREDNISOLONE INJ 40 MG/1 ML SDV IV SCH ×2 (09:57→22:27)
[2019-02-04] MEDS: SOTALOL HCL 80 MG TABLET PO SCH ×2 (09:57→17:45)
[2019-02-04] MEDS: CEFTRIAXONE 1 GM/D5W RTU 1 GM/50 ML RTUPB IV SCH (09:58)
--- NOTE | 2019-02-04 11:13 | RADIOLOGY REPORT (SQ) ---
EXAM DESCRIPTION: CHEST SINGLE VIEW COMPLETED DATE/TIME: 02/04/2019 8:29 am REASON FOR STUDY: reassess congestion COMPARISON: Chest x-ray and chest CT dated 02/03/2019. EXAM PARAMETERS: NUMBER OF VIEWS: One view. TECHNIQUE: Single frontal radiographic view of the chest acquired. RADIATION DOSE: NA LIMITATIONS: None. FINDINGS: LUNGS AND PLEURA: Again seen is vague airspace disease in both lungs. There may be slight improved aeration in the right lung. The pleural effusions seen on previous CT are not appreciated on the single-view chest x-ray. MEDIASTINUM AND HILAR STRUCTURES: No masses. Contour normal. HEART AND VASCULAR STRUCTURES: Heart normal in size. Normal vasculature. BONES: No acute findings. HARDWARE: Pacemaker. Defibrillator. OTHER: No other significant finding. IMPRESSION: SCATTERED VAGUE AIRSPACE DISEASE. POSSIBLE SLIGHT IMPROVEMENT IN THE RIGHT LUNG BASE. TECHNICAL DOCUMENTATION: JOB ID: [id number] [employer]- All Rights Reserved Reading location - IP/workstation name: [email or web address]
--- NOTE | 2019-02-04 12:04 | PDOC PROGRESS REPORT ---
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 He was admitted for acute likely secondary to DKA. 02/02: Patient was started on insulin drip and IV fluids. DKA resolved this mo rning and he has been off insulin drip. Upon encounter, patient is much more awake and conversant. He is actually oriented x3 and son says that he is almost at his baseline. He denies acute complaints. He does say that he has been having problems with his insulin pump. 02/03: Patient desaturated into high 80s early this morning and was slightly tachypneic. Upon encounter, he appears comfortable and denies shortness of breath or chest pain. His confusion has resolved and he is back to his baseline mentation. BNP was significantly elevated. Chest CT pursued and showed changes suggestive of pulmonary congestion. Discontinue IV fluids. Patient will be given a dose of IV Lasix. 02/04: No acute event overnight. He is oriented this morning. Denies chest pain or shortness of breath upon encounter this morning. Repeat chest x-ray still shows congestive changes but slightly improved compared to yesterday. He has diuresed well overnight. Will continue IV Lasix today and tomorrow depending on his improvement. His DKA remains resolved. He still has bilateral wheezing but he does not have a history of COPD. Will order for a bedside spirometry and will start him on IV steroids. We will continue scheduled breathing treatments. Reason For Visit: ACUTE ENCEPHALOPATHY,DKA Physical Exam Vital Signs: Temp Pulse Resp BP Pulse Ox 97.7 F 70 17 147/69 H 99 02/04/19 07:25 02/04/19 07:25 02/04/19 07:25 02/04/19 07:25 02/04/19 07:25 Intake & Output 02/03/19 02/04/19 02/05/19 06:59 06:59 06:59 Intake Total 4986 1454 Output Total 300 700 Balance 4686 754 Weight 209 lb 14.081 oz 208 lb 5.389 oz General appearance: PRESENT: no acute distress, well-developed, well-nourished Head exam: PRESENT: atraumatic, normocephalic Eye exam: PRESENT: conjunctiva pink, EOMI, PERRLA. ABSENT: scleral icterus Ear exam: PRESENT: normal external ear exam Mouth exam: PRESENT: moist, tongue midline Neck exam: ABSENT: carotid bruit, JVD, lymphadenopathy, thyromegaly Respiratory exam: PRESENT: rhonchi, wheezes. ABSENT: rales Cardiovascular exam: PRESENT: RRR. ABSENT: diastolic murmur, rubs, systolic murmur Pulses: PRESENT: normal dorsalis pedis pul GI/Abdominal exam: PRESENT: normal bowel sounds, soft. ABSENT: distended, guarding, mass, organolmegaly, rebound, tenderness Rectal exam: PRESENT: deferred Extremities exam: PRESENT: full ROM. ABSENT: calf tenderness, clubbing, pedal edema Neurological exam: PRESENT: alert, awake, oriented to person, oriented to place, oriented to time, CN II-XII grossly intact. ABSENT: motor sensory deficit Results Laboratory Results: 02/01/19 10:07 02/04/19 05:26 02/03/19 02/04/19 15:00 05:26 Sodium 137.8 137.8 Potassium 5.3 H 5.0 Chloride 106 107 Carbon Dioxide 22 22 Anion Gap 10 9 BUN 80 H 80 H Creatinine 2.46 H 2.14 H Est GFR ( Amer) 31 L 36 L Glucose 205 H 184 H Calcium 8.5 8.3 L 02/01/19 02/03/19 02/03/19 10:07 08:37 15:00 Troponin I 0.014 NT-Pro-B Natriuret Pep 33761 H 99806 H Impressions: Knee X-Ray 02/01/19 10:22 IMPRESSION: No acute osseous abnormality of the left knee. Head CTA 02/01/19 10:38 IMPRESSION: NO CTA EVIDENCE OF STENOSIS OR ANEURYSM OF THE [place]. Neck CTA 02/01/19 10:38 IMPRESSION: NORMAL CTA OF THE EXTRA-CRANIAL CAROTID AND VERTEBRAL ARTERIES. Chest CT 02/03/19 09:47 IMPRESSION: 1. Findings likely reflecting congestive failure. Cardiomegaly with bilateral effusions and upper lobe ground-glass infiltrates/edema. Chest X-Ray 02/04/19 06:00 IMPRESSION: SCATTERED VAGUE AIRSPACE DISEASE. POSSIBLE SLIGHT IMPROVEMENT IN THE RIGHT LUNG BASE. Assessment and Plan - Diagnosis (1) Acute encephalopathy Is this a current diagnosis for this admission?: Yes Plan: Acute metabolic encephalopathy. Resolved. Likely related to DKA. (2) Pulmonary congestion Is this a current diagnosis for this admission?: Yes Plan: 02/03: Discontinue IV fluids. Will give a dose of IV Lasix. 02/04: Continue IV Lasix today and tomorrow. Repeat chest x-ray tomorrow. (3) DKA (diabetic ketoacidoses) Qualifiers: Diabetes mellitus type: type 1 Diabetes mellitus complication detail: without coma Qualified Code(s): E10.10 - Type 1 diabetes mellitus with ketoacidosis without coma Is this a current diagnosis for this admission?: Yes Plan: 02/02: Resolved. Will transition patient to Lantus for now. We will repeat another BMP. He says that he will have his insulin pump checked at his PCPs office next week. 02/03: Increase Lantus to 15 units twice daily. (4) Lactic acidosis Is this a current diagnosis for this admission?: Yes Plan: Resolved with IV fluids. (5) Acute on chronic renal failure Is this a current diagnosis for this admission?: Yes Plan: 02/03: DC IV fluids. Repeat BMP. 02/04: Creatinine improved today. (6) Hyperkalemia Is this a current diagnosis for this admission?: Yes Plan: Related to his DKA. (7) CAD (coronary artery disease) Is this a current diagnosis for this admission?: Yes Plan: Stable. (8) CHF (congestive heart failure) Qualifiers: Heart failure type: systolic Heart failure chronicity: acute on chronic Qualified Code(s): I50.23 - Acute on chronic systolic (congestive) heart failure Is this a current diagnosis for this admission?: Yes Plan: 02/02: Stable. Cautious hydration. 02/03: Patient developed pulmonary congestion likely related to IV fluids for his DKA. Will give IV Lasix. 02/04: Continue IV Lasix today and tomorrow. - Time Time Spent with patient: 25-34 minutes
--- NOTE | 2019-02-04 12:05 | ADVANCED CARE ---
- Diagnosis (1) Acute encephalopathy Diagnosis Current: Yes (2) Pulmonary congestion Diagnosis Current: Yes (3) DKA (diabetic ketoacidoses) Diagnosis Current: Yes (4) Lactic acidosis Diagnosis Current: Yes (5) Acute on chronic renal failure Diagnosis Current: Yes (6) Hyperkalemia Diagnosis Current: Yes (7) CAD (coronary artery disease) Diagnosis Current: Yes (8) CHF (congestive heart failure) Diagnosis Current: Yes Resuscitation Status: Full Code Discussion: Discussed with patient. He expresses he wants to be full code for now and prefers to receive chest compressions, defibrillation or mechanical ventilation if the need arises. He says that his , Norma Arroyo is his surrogate medical decision maker.
[2019-02-05] MEDS: INSULIN GLARGINE,HUM.REC.ANLOG 1,000 UNIT/10 ML VIAL SUBCUT SCH ×2 (09:06→22:31)
[2019-02-05] MEDS: INSULIN LISPRO 100 UNIT/ML 3 ML VIAL SUBCUT SCH ×4 (09:06→22:30)
[2019-02-05] MEDS: FUROSEMIDE INJ/PF 40 MG/4 ML SDV IV SCH (09:07)
[2019-02-05] MEDS: METHYLPREDNISOLONE INJ 40 MG/1 ML SDV IV SCH ×2 (09:07→22:31)
[2019-02-05] MEDS: CEFTRIAXONE 1 GM/D5W RTU 1 GM/50 ML RTUPB IV SCH (09:07)
[2019-02-05] MEDS: TAMSULOSIN HCL 0.4 MG CAP.SR.24H PO SCH (09:08)
[2019-02-05] MEDS: SOTALOL HCL 80 MG TABLET PO SCH ×2 (09:08→17:19)
[2019-02-05] MEDS: RIVAROXABAN 10 MG TABLET PO SCH (09:10)
--- NOTE | 2019-02-05 10:16 | Pulmonary Function Test ---
Pulmonary Function Test Date of Procedure:: 02/05/19 INDICATION:: Dyspnea Referring Provider: Dr. Gibran Hopkins - Report Spirometry: Spirometry: pre-FVC: 1.39 L 31% post-FVC: 1.82 L 41% pre-FEV:1 1.04 L 33% post-FEV1: 1.42 L 44% pre-FEV1/FVC %: 75 post-FEV1/FVC%: 78 predicted: 72 [id number]%: 1.27 L 56% [id number]%: 1.68 L 74% Impression: Obstructive ventilatory defect is inferred by the 10% improvement in FEV1; 10% improvement in FVC;and in the 18% improvement in FEF 25-75%. Restrictive defect is inferred by the decrease in FVC. (Restrictive defect may mask the degree of obstruction.) Restrictive defect cannot be based on spirometry alone. If clinically indicated complete pulmonary function test would be warranted. When patient is stable
--- NOTE | 2019-02-05 12:19 | Progress Note Acknowledgement ---
Progress Note Acknowledgement Progess Note Acknowledgement: I, the undersigned member of the medical staff with appropriate privileges and with supervisory authority over [ PAC ], a dependent practice allied health professional, acknowledge that I have reviewed the progress notes entered on this patient, and in my professional judgment believe that the assessment made and/or any care evidenced was appropriate
--- NOTE | 2019-02-05 12:32 | PDOC PROGRESS REPORT ---
Subjective Progress Note for:: 02/05/19 Subjective:: 02/05/2019 78-year-old male admitted to the hospital for mental status with trouble speaking it appeared to be a possible mild left facial droop in the emergency room. CTA head and neck was performed and this was unremarkable. Based on prior admissions this is due to a diabetic ketoacidosis. Patient has been on insulin pump in the past as well as prior congestive heart failure Reason For Visit: ACUTE ENCEPHALOPATHY,DKA Physical Exam Vital Signs: Temp Pulse Resp BP Pulse Ox 97.6 F 72 20 127/65 H 87 L 02/05/19 08:11 02/05/19 08:11 02/05/19 08:11 02/05/19 08:11 02/05/19 08:11 Intake & Output 02/04/19 02/05/19 02/06/19 06:59 06:59 06:59 Intake Total 1454 750 Output Total 700 1575 Balance 754 -825 Weight 94.5 kg 91.7 kg General appearance: PRESENT: no acute distress, well-developed, well-nourished Respiratory exam: PRESENT: crackles Cardiovascular exam: PRESENT: RRR. ABSENT: diastolic murmur, rubs, systolic murmur Neurological exam: PRESENT: alert, awake, oriented to person, oriented to place, oriented to time, oriented to situation, CN II-XII grossly intact, other - She states that he has had a mild left facial droop for almost 2 years according to him. Patient does not remember ever having a previous CVA however.. ABSENT: motor sensory deficit Psychiatric exam: PRESENT: appropriate affect, normal mood. ABSENT: homicidal ideation, suicidal ideation Results Laboratory Results: 02/01/19 10:07 02/04/19 05:26 02/01/19 14:32 Blood Blood Culture - Final Staphylococcus Capitis 02/01/19 02/03/19 02/03/19 10:07 08:37 15:00 Troponin I 0.014 NT-Pro-B Natriuret Pep 84669 H 50226 H Impressions: Knee X-Ray 02/01/19 10:22 IMPRESSION: No acute osseous abnormality of the left knee. Head CTA 02/01/19 10:38 IMPRESSION: NO CTA EVIDENCE OF STENOSIS OR ANEURYSM OF THE [place]. Neck CTA 02/01/19 10:38 IMPRESSION: NORMAL CTA OF THE EXTRA-CRANIAL CAROTID AND VERTEBRAL ARTERIES. Chest CT 02/03/19 09:47 IMPRESSION: 1. Findings likely reflecting congestive failure. Cardiomegaly with bilateral effusions and upper lobe ground-glass infiltrates/edema. Chest X-Ray 02/04/19 06:00 IMPRESSION: SCATTERED VAGUE AIRSPACE DISEASE. POSSIBLE SLIGHT IMPROVEMENT IN THE RIGHT LUNG BASE. Assessment and Plan - Diagnosis (1) Congestive heart failure (CHF) Is this a current diagnosis for this admission?: Yes Plan: 02/05/2019 she is currently not on any diuretics and was on no diuretics at home (2) Acute encephalopathy Is this a current diagnosis for this admission?: Yes Plan: Acute metabolic encephalopathy. Resolved. Likely related to DKA. 02/05/2019 is much more alert and oriented today , no sign of confusion (3) Altered mental state Qualifiers: Altered mental status type: unspecified Qualified Code(s): R41.82 - Altered mental status, unspecified Is this a current diagnosis for this admission?: Yes Plan: 02/05/2019 patient no longer confused. Patient is alert and oriented x3 discussing his insulin pump after Kalin his cloth tester (4) CVA (cerebral vascular accident) Is this a current diagnosis for this admission?: Yes Plan: 02/05/[address] scan on admission of his head was normal order MRI scan of the brain today - Time Time Spent with patient: 35 or more minutes
[2019-02-06] MEDS: INSULIN LISPRO 100 UNIT/ML 3 ML VIAL SUBCUT SCH ×4 (08:25→21:17)
[2019-02-06] MEDS: METHYLPREDNISOLONE INJ 40 MG/1 ML SDV IV SCH (09:20)
[2019-02-06] MEDS: INSULIN GLARGINE,HUM.REC.ANLOG 1,000 UNIT/10 ML VIAL SUBCUT SCH ×2 (09:20→21:17)
[2019-02-06] MEDS: TAMSULOSIN HCL 0.4 MG CAP.SR.24H PO SCH (09:21)
[2019-02-06] MEDS: SOTALOL HCL 80 MG TABLET PO SCH ×2 (09:21→17:05)
[2019-02-06] MEDS: CEFTRIAXONE 1 GM/D5W RTU 1 GM/50 ML RTUPB IV SCH (09:21)
[2019-02-06] MEDS: RIVAROXABAN 10 MG TABLET PO SCH (09:22)
[2019-02-06 09:59] LABS: ABSOLUTE LYMPHOCYTES (AUTO) 0.6 10^3/uL (0.5-4.7); ABSOLUTE MONOCYTES (AUTO) 0.5 10^3/uL (0.1-1.4); ABSOLUTE NEUT (AUTO) 9.5 10^3/uL (1.7-8.2); BASOPHILS % (AUTO) 0.1 % (0-2); HEMATOCRIT 45.6 % (37.9-51.0); HEMOGLOBIN 15.4 g/dL (13.5-17.0); LYMPHOCYTES % (AUTO) 5.6 % (13-45); MEAN CORPUSCULAR HGB CONC 33.8 g/dL (32.0-36.0); MEAN CORPUSCULAR VOLUME 95 fl (80-97); MONOCYTES % (AUTO) 4.5 % (3-13); PLATELET COUNT 125 10^3/uL (150-450); RED BLOOD COUNT 4.82 10^6/uL (4.35-5.55); RED CELL DISTRIBUTION WIDTH 15.1 % (11.5-14.0); SEGMENTED NEUTROPHILS % (AUTO) 89.8 % (42-78); TOTAL CELLS COUNTED % (AUTO) 100 %; WHITE BLOOD COUNT 10.6 10^3/uL (4.0-10.5)
[2019-02-06 10:19] LABS: ANION GAP 6 (5-19); BLOOD UREA NITROGEN 58 mg/dL (7-20); CALCIUM 8.9 mg/dL (8.4-10.2); CARBON DIOXIDE 28 mmol/L (22-30); CHLORIDE 104 mmol/L (98-107); GLUCOSE 269 mg/dL (75-110); POTASSIUM 4.9 mmol/L (3.6-5.0)
[2019-02-06] MEDS: FUROSEMIDE 20 MG TABLET PO SCH ×2 (12:29→17:05)
--- NOTE | 2019-02-06 12:35 | PDOC PROGRESS REPORT ---
Subjective Progress Note for:: 02/06/19 Subjective:: 02/05/2019 78-year-old male admitted to the hospital for mental status with trouble speaking it appeared to be a possible mild left facial droop in the emergency room. CTA head and neck was performed and this was unremarkable. Based on prior admissions this is due to a diabetic ketoacidosis. Patient has been on insulin pump in the past as well as prior congestive heart failure 02/06/2019 BUN monitored for AKA, CHF, possible pneumonia patient has appointment on the at his shoe clerk. Patient currently on Rocephin however urine is clean, chest x-ray really does not show pneumonia. I may send him out Z-Seth just to complete a 10-day course of antibiotics Reason For Visit: ACUTE ENCEPHALOPATHY,DKA Physical Exam Vital Signs: Temp Pulse Resp BP Pulse Ox 97.6 F 53 L 16 157/86 H 97 02/06/19 08:07 02/06/19 08:07 02/06/19 08:07 02/06/19 08:07 02/06/19 08:07 Intake & Output 02/05/19 02/06/19 02/07/19 06:59 06:59 06:59 Intake Total 750 890 50 Output Total 1575 525 Balance -825 365 50 Weight 91.7 kg 94.2 kg General appearance: PRESENT: no acute distress Respiratory exam: PRESENT: clear to auscultation malcom. ABSENT: rales, rhonchi, wheezes Cardiovascular exam: PRESENT: RRR. ABSENT: diastolic murmur, rubs, systolic murmur Neurological exam: PRESENT: alert, awake, oriented to person, oriented to place, oriented to time, oriented to situation, CN II-XII grossly intact, other - No focal deficits. ABSENT: motor sensory deficit Psychiatric exam: PRESENT: appropriate affect, normal mood, other - She confused at times and not making sense. At other times completely lucid coherent. ABSENT: homicidal ideation, suicidal ideation Results Laboratory Results: 02/06/19 09:35 02/06/19 09:35 02/06/19 02/06/19 09:35 09:35 WBC 10.6 H RBC 4.82 Hgb 15.4 Hct 45.6 MCV 95 MCH 32.0 MCHC 33.8 RDW 15.1 H Plt Count 125 L Seg Neutrophils % 89.8 H Sodium 138.4 Potassium 4.9 Chloride 104 Carbon Dioxide 28 Anion Gap 6 BUN 58 H Creatinine 1.29 H Est GFR ( Amer) > 60 Glucose 269 H Calcium 8.9 02/01/19 14:32 Blood Blood Culture - Final Staphylococcus Capitis 02/01/19 02/03/19 02/03/19 10:07 08:37 15:00 Troponin I 0.014 NT-Pro-B Natriuret Pep 66819 H 22370 H 02/06/19 09:35 Troponin I NT-Pro-B Natriuret Pep 57587 H Impressions: Knee X-Ray 02/01/19 10:22 IMPRESSION: No acute osseous abnormality of the left knee. Head CTA 02/01/19 10:38 IMPRESSION: NO CTA EVIDENCE OF STENOSIS OR ANEURYSM OF THE [place]. Neck CTA 02/01/19 10:38 IMPRESSION: NORMAL CTA OF THE EXTRA-CRANIAL CAROTID AND VERTEBRAL ARTERIES. Chest CT 02/03/19 09:47 IMPRESSION: 1. Findings likely reflecting congestive failure. Cardiomegaly with bilateral effusions and upper lobe ground-glass infiltrates/edema. Chest X-Ray 02/04/19 06:00 IMPRESSION: SCATTERED VAGUE AIRSPACE DISEASE. POSSIBLE SLIGHT IMPROVEMENT IN THE RIGHT LUNG BASE. Assessment and Plan - Diagnosis (1) Congestive heart failure (CHF) Is this a current diagnosis for this admission?: Yes Plan: 02/05/2019 she is currently not on any diuretics and was on no diuretics at home 02/06/2019 patient's BNP is gone up slightly, and chest x-ray as well as CT scan shows some mild congestive heart failure according to the history patient has had this in the past although on no diuretics at home. Will gently diurese him today with some p.o. Lasix. Watch renal function closely. Patient does have some evidence of 1+ peripheral edema (2) Acute encephalopathy Is this a current diagnosis for this admission?: Yes Plan: Acute metabolic encephalopathy. Resolved. Likely related to DKA. 02/05/2019 is much more alert and oriented today , no sign of confusion 02/06/19 no significant encephalopathy (3) Altered mental state Qualifiers: Altered mental status type: unspecified Qualified Code(s): R41.82 - Altered mental status, unspecified Is this a current diagnosis for this admission?: Yes Plan: 02/05/2019 patient no longer confused. Patient is alert and oriented x3 discussing his insulin pump after Kalin his shoe clerk 02/06/2019 discussion today with the patient's in the room as well as the son. Son admits that his father has become more confused and forgetful over the last year or so this appears to have been a gradual decline. Did say several things today the did not make sense to anyone else in the room and were inappropriate for conversation that we were having. Overall however the patient mental status is probably back to baseline (4) CVA (cerebral vascular accident) Is this a current diagnosis for this admission?: Yes Plan: 02/05/[address] scan on admission of his head was normal order MRI scan of the brain today 02 06 19 patient could not have an MRI scan done because he has a pacemaker in place. Patient has no focal deficits (5) DKA, type 1 Qualifiers: Diabetes mellitus complication detail: without coma Qualified Code(s): E10.10 - Type 1 diabetes mellitus with ketoacidosis without coma Is this a current diagnosis for this admission?: Yes Plan: Patient was admitted his blood sugar was between 357 and 384. The following day went up into the 400s now back into the upper 100s and lower 200s patient is currently getting Lantus 15 units twice daily I am going to continue his Solu- Medrol today and put him on a couple of days of p.o. prednisone. Discussed with his shoe clerk tomorrow whether or not he will go on insulin pump or subcu injections - Time Time Spent with patient: 35 or more minutes
[2019-02-06] MEDS ORDERED: PREDNISONE 20 MG TABLET PO SCH (18:00)
[2019-02-07 08:01] VITALS: BP 136/58
[2019-02-07] MEDS: INSULIN LISPRO 100 UNIT/ML 3 ML VIAL SUBCUT SCH (08:44)
[2019-02-07] MEDS: CEFTRIAXONE 1 GM/D5W RTU 1 GM/50 ML RTUPB IV SCH (09:22)
[2019-02-07] MEDS: FUROSEMIDE 20 MG TABLET PO SCH (09:27)
[2019-02-07] MEDS: SOTALOL HCL 80 MG TABLET PO SCH (09:28)
[2019-02-07] MEDS: RIVAROXABAN 10 MG TABLET PO SCH (09:28)
[2019-02-07] MEDS: TAMSULOSIN HCL 0.4 MG CAP.SR.24H PO SCH (09:29)
--- NOTE | 2019-02-07 15:09 | PDOC DISCHARGE SUMMARY ---
General - Admit/Disc Date/PCP Admission Date/Primary Care Provider: 02/01/19 13:03 ZURI KAMINSKI Discharge Date: 02/07/19 - Discharge Diagnosis (1) Congestive heart failure (CHF) Is this a current diagnosis for this admission?: Yes Summary: Patient has a history of congestive heart failure however this was not primary concern or complaint or symptom on admissio. Patient was noted to have increasing BNP's, on admission 14 200 went up to 18 821 then 21 100 at time of discharge.. Patient was not symptomatic at all no wheezing no coughing no shortness of breath no chest pain. Slight bit of pedal edema. T scans of the chest as well as chest x-rays showed no obvious pulmonary edema. Patient was given some p.o. Lasix while in the hospital and was discharged home on to the amount of Lasix 20 mg twice daily (2) Acute encephalopathy Is this a current diagnosis for this admission?: Yes Summary: Patient was admitted on 913 he was brought in for confusion as well as falling also potentially having trouble speaking and not coherent. There is also questionable left facial droop. patient has a history of DKA with prior confusion. (3) Altered mental state Is this a current diagnosis for this admission?: Yes Summary: According to the patient's son his father has been having difficulty with his memory now for several years, and episodes of confusion. This however was much more significant, and the patient was actually incoherent (4) CVA (cerebral vascular accident) Is this a current diagnosis for this admission?: Yes Summary: In the emergency room patient had a mild left facial droop, however the patient tells me that he is noticed this now for the last couple of years. Patient has no other localizing or focal symptoms rather more of a generalized altered mental status (5) DKA, type 1 Is this a current diagnosis for this admission?: Yes Summary: When patient was admitted his glucose was elevated at 357 and 384 at the time of discharge his fingerstick blood sugar was 89 Hemoglobin A1c on admission was 6.4. According to the son the patient has pulled out his insulin pump 3 times recently. Patient states that he is not sure why is done this 1 time he says he was trying to fix the "sensor. Her graph patient's anion gap on admission was 24 and 23 though it quickly went down to the low teens at the time of discharge it was 6 - Additional Information Resuscitation Status: Full Code Discharge Diet: As Tolerated, Cardiac, Diabetic Discharge Activity: Activity As Tolerated, Balance Activity w/Rest, Weigh Daily Prescriptions: Furosemide [Lasix 20 mg Tablet] 20 mg PO QAM #30 tablet Home Medications: Apedria 0 units SUBCUT CONTINUOUS PRN 11/01/12 Dorzolamide HCl/Timolol Maleat [Cosopt Oph Soln 10 ml] 1 drop OU BID 11/02/12 Bimatoprost [Lumigan 0.01% Oph Soln 2.5 ml/Bottle] 1 drop OU DAILY 12/22/15 Carvedilol [Coreg 12.5 mg Tablet] 12.5 mg PO DAILY 12/22/15 Losartan Potassium [Cozaar 100 mg Tablet] 100 mg PO DAILY 02/01/19 Potassium Chloride [Klor-Con M10] 10 meq PO DAILY 02/01/19 Rivaroxaban [Xarelto] 20 mg PO DAILY 02/01/19 Sotalol HCl [Betapace 80 mg Tablet] 1 tab PO BID 02/01/19 Tamsulosin HCl [Flomax 0.4 mg Cap.sr] 0.4 mg PO DAILY 02/01/19 Furosemide [Lasix 20 mg Tablet] 20 mg PO QAM #30 tablet 02/07/19 History of Present Illness History of Present Illness: AXEL COLON is a 78 year old male who was admitted with creasing confusion, altered mental status, falling, and reportedly being incoherent this is occurred over the last 24 hours. Patient has had a similar event when he was in [facility] Hospital Course Hospital Course: Admission patient received a 2 L bolus of fluids in the ER and was gently hydrated with 100 cc of normal saline per hour patient was also started on insulin drip with Accu-Cheks every hour. Patient's lactic acid on admission was 3.2 but quickly went down to 1.6 following hydration 2 days following admission patient's confusion was cleared he was back to his baseline however patient's BNP was elevated on that day and he was given a dose of IV Lasix and his IV fluids were discontinued On 02-05 patient was seen in consultation for pulmonary function studies which revealed obstructive ventilatory defect is inferred by a 10% improvement and FEV1 Test x-ray showed no evidence of pneumonia urine was clean patient had been on IV Rocephin. No source of sepsis was found. Due to patient's rising BNP was discharged home on a short course of Lasix she was unable to get an MRI scan of his brain due to pacemaker with his family in the room it was discussed about the patient's waxing and waning mental capacity. At times patient would say things that really were not appropriate with a conversation, and then not know why he would say them. Son intimated that this is been going on for a while. However the son did state that he only lived a couple houses away and that he felt it was safe for his dad to be discharged home to the care of his mother also in the room. patient has appointment with his broaching machine operator on the day of discharge to discuss the insulin pump Physical Exam Vital Signs: Temp Pulse Resp BP Pulse Ox 98.1 F 69 18 136/58 H 93 02/07/19 08:31 02/07/19 08:31 02/07/19 08:31 02/07/19 08:31 02/07/19 08:31 Intake & Output 02/06/19 02/07/19 02/08/19 06:59 06:59 06:59 Intake Total 890 726 Output Total 525 2200 Balance 365 -1474 Weight 94.2 kg 94 kg General appearance: PRESENT: no acute distress, other - Patient asking to be discharged and ready to go Respiratory exam: PRESENT: clear to auscultation malcom, other - No obvious indication of congestive heart failure of any significance. ABSENT: rales, rhonchi, wheezes Cardiovascular exam: PRESENT: RRR. ABSENT: diastolic murmur, rubs, systolic murmur Neurological exam: PRESENT: alert, awake, oriented to person, oriented to place, oriented to time, oriented to situation, CN II-XII grossly intact, other - Obvious focal deficits. ABSENT: motor sensory deficit Psychiatric exam: PRESENT: anxious, appropriate affect, normal mood. ABSENT: homicidal ideation, suicidal ideation Results Laboratory Results: 02/06/19 09:35 02/06/19 09:35 02/01/19 10:07 Blood Blood Culture - Final NO GROWTH IN 5 DAYS 02/01/19 02/03/19 02/03/19 10:07 08:37 15:00 Troponin I 0.014 NT-Pro-B Natriuret Pep 15660 H 42167 H 02/06/19 09:35 Troponin I NT-Pro-B Natriuret Pep 74104 H Impressions: Knee X-Ray 02/01/19 10:22 IMPRESSION: No acute osseous abnormality of the left knee. Head CTA 02/01/19 10:38 IMPRESSION: NO CTA EVIDENCE OF STENOSIS OR ANEURYSM OF THE BLACKFEET OF LORD. Neck CTA 02/01/19 10:38 IMPRESSION: NORMAL CTA OF THE EXTRA-CRANIAL CAROTID AND VERTEBRAL ARTERIES. Chest CT 02/03/19 09:47 IMPRESSION: 1. Findings likely reflecting congestive failure. Cardiomegaly with bilateral effusions and upper lobe ground-glass infiltrates/edema. Chest X-Ray 02/04/19 06:00 IMPRESSION: SCATTERED VAGUE AIRSPACE DISEASE. POSSIBLE SLIGHT IMPROVEMENT IN THE RIGHT LUNG BASE. Qualifiers - * PATIENT BEING DISCHARGED WITH ANY OF THE FOLLOWING DIAGNOSIS: No Acute Heart Failure - Is this a Heart Failure Patient?: Yes Documentation of LVEF assessment?: No, Document reason - Patient has had a work- up in the past LVEF < 40%?: No- if no continue to question #3 3. Anticoagulant therapy for permanect/persistent/paraoxysmal Afib or Aflutter: Yes - Patient on Xarelto 20 mg daily Follow-up Appointment scheduled within 7 days?: Yes Plan Time Spent: Greater than 30 Minutes - See your broaching machine operator today following discharge to discuss insulin pump
--- NOTE | 2019-02-07 16:16 | ADVANCED CARE ---
- Diagnosis (2) Acute encephalopathy Diagnosis Current: Yes (3) Altered mental state Diagnosis Current: Yes (4) CVA (cerebral vascular accident) Diagnosis Current: Yes (5) DKA, type 1 Diagnosis Current: Yes Attendance: Son and Resuscitation Status: Full Code Discussion: Long discussion with the son and the patient's of 52 years concerning patient's diabetes and specifically his insulin pump. We also discussed patient's declining mental condition that pertains to confusion. Patient's son admitted that his father had been having more frequent episodes of confusion. Discussing the insulin pump we talked about the patient having removed or pulled apart 3 insulin pumps which resulted in the patient having a high blood sugar We spent time discussing the patient's discharge and the fact that he had an appointment on the day of his discharge with his marine underwriter in [place]. That would be the physician who will make the decision concerning the appropriateness of his insulin pump The son and I agreed on everything that was discussed, and the family was appreciative of the visit. Approximately 30 minutes was spent in discussion Care Planning Goals: Insulin and its delivery system Dementia
== END 2019-02-07 09:43 | disposition home or self-care (01) | DRG 638 ==
LOC: ER 09:53 → EH 13:03 → 3W 16:16
PROVIDERS: ADMIT Internal Medicine; ATTEND Internal Medicine
DX: E10.10 Type 1 diabetes mellitus with ketoacidosis without coma (principal); I13.0 Hypertensive heart and chronic kidney disease with heart failure and stage 1 through stage 4 chronic kidney disease, or unspecified chronic kidney disease; N17.9 Acute kidney failure, unspecified; G93.49 Other encephalopathy; I50.22 Chronic systolic (congestive) heart failure; E10.22 Type 1 diabetes mellitus with diabetic chronic kidney disease; N18.3 Chronic kidney disease, stage 3 (moderate); I25.10 Atherosclerotic heart disease of native coronary artery without angina pectoris; Z96.41 Presence of insulin pump (external) (internal); M19.90 Unspecified osteoarthritis, unspecified site; S80.212A Abrasion, left knee, initial encounter; W18.30XA Fall on same level, unspecified, initial encounter; Z79.4 Long term (current) use of insulin; I25.2 Old myocardial infarction; Z95.810 Presence of automatic (implantable) cardiac defibrillator; Z90.5 Acquired absence of kidney; Z85.54 Personal history of malignant neoplasm of ureter; Z95.1 Presence of aortocoronary bypass graft
CPT/HCPCS: 36415; 51701; 70496; 70498; 71045; 71250; 80048; 80053; 81001; 82803; 82962; 83036; 83605; 83880; 84484; 85025; 87040; 87077; 87186; 93005; 93010; 94010; 94640; 94799; 96361; 96374; 99285; J0696; J1815; J1940; J2405; J2920; J3480; J3490; J7030; J7050; J7512; J7620

== ENCOUNTER 2019-03-15 18:57 | Inpatient (IN) | payer MEDICARE, BC ==
[2019-03-15 19:50] LABS: ABSOLUTE BASOPHILS # (AUTO) 0.1 10^3/uL (0.0-0.2); ABSOLUTE MONOCYTES (AUTO) 0.8 10^3/uL (0.1-1.4); BASOPHILS % (AUTO) 0.8 % (0-2); HEMATOCRIT 35.2 % (37.9-51.0); HEMOGLOBIN 11.8 g/dL (13.5-17.0); LYMPHOCYTES % (AUTO) 8.9 % (13-45); MEAN CORPUSCULAR HEMOGLOBIN 31.6 pg (27.0-33.4); MEAN CORPUSCULAR HGB CONC 33.5 g/dL (32.0-36.0); MEAN CORPUSCULAR VOLUME 94 fl (80-97); MONOCYTES % (AUTO) 7.6 % (3-13); PLATELET COUNT 120 10^3/uL (150-450); RED BLOOD COUNT 3.72 10^6/uL (4.35-5.55); RED CELL DISTRIBUTION WIDTH 15.3 % (11.5-14.0); SEGMENTED NEUTROPHILS % (AUTO) 82.7 % (42-78); TOTAL CELLS COUNTED % (AUTO) 100 %; WHITE BLOOD COUNT 10.9 10^3/uL (4.0-10.5)
--- NOTE | 2019-03-15 19:57 | ER Document Report ---
ED General - General Chief Complaint: High Blood Sugar Stated Complaint: HIGH BLOOD SUGAR Time Seen by Provider: 03/15/19 19:21 Primary Care Provider: CARMEN KIM PA [Primary Care Provider] - Follow up as needed Notes: 78-year-old male with long-standing type 1 diabetes and insulin pump with multiple pump malfunctions, presents with generalized weakness polyuria polydipsia and fatigue for 1 day. Glucose elevated for EMS. His insulin pump either is not working or disconnected and the family has actually left it at home. No belly pain vomited once yesterday. No fevers. Has one kidney secondary to recent nephrectomy. But has no chronic kidney disease per family. TRAVEL OUTSIDE OF THE [place] IN LAST 30 DAYS: No - Related Data Allergies/Adverse Reactions: No Known Allergies Allergy (Verified 02/01/19 11:20) Home Medications: Family is writing down list of medications. Past Medical History - Social History Smoking Status: Never Smoker Family History: Reviewed & Not Pertinent Patient has suicidal ideation: No Patient has homicidal ideation: No - Past Medical History Cardiac Medical History: Reports: Hx Coronary Artery Disease, Hx Heart Attack - pacemaker/defib, Hx Hypercholesterolemia, Hx Hypertension Endocrine Medical History: Reports: Hx Diabetes Mellitus Type 1 Renal/ Medical History: Reports: Hx Renal Insufficiency. 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, Hx Orthopedic Surgery - right total knee - Immunizations Hx Diphtheria, Pertussis, Tetanus Vaccination: No Hx Pneumococcal Vaccination: 05/22/17 Review of Systems - Review of Systems Notes: REVIEW OF SYSTEMS GEN: Fatigue no fever ENT: Denies sore throat, nasal discharge, ear pain EYES: Denies blurry vision, eye pain, discharge CV: Denies chest pain, palpitations, edema RESP: Denies cough, shortness of breath, wheezing GI: Denies abdominal pain, nausea, vomiting, diarrhea MSK: Denies joint pain/swelling, edema, SKIN: Denies rash, skin lesions LYMPH: Denies swollen glands/lymph nodes NEURO: Denies headache, focal weakness or numbness, dizziness PSYCH: Denies depression, suicidal or homicidal ideation PHYSICAL EXAMINATION General: No acute distress, well-nourished Head: Atraumatic, normocephalic ENT: Mouth normal, oropharynx moist, no exudates or tonsillar enlargement Eyes: Conjunctiva normal, pupils equal, lids normal Neck: No JVD, supple, no guarding CVS: Normal rate, regular rhythm, no murmurs Resp: No resp distress, equal and normal breath sounds bilaterally GI: Nondistended, soft, no tenderness to palpation, no rebound or guarding Ext: No deformities, bilateral pedal symmetric edema, normal range of motion in upper and lower ext Back: No CVA or midline TTP Skin: No rash, warm Lymphatic: No lymphadeopathy noted Neuro: Awake, alert. Face symmetric. GCS 15. Review Physical Exam - Vital signs Vitals: Temp Pulse Resp BP Pulse Ox 98.0 F 41 L 16 120/79 95 03/15/19 19:13 03/15/19 19:13 03/15/19 19:13 03/15/19 19:13 03/15/19 19:13 Course - Re-evaluation Re-evalutation: 03/15/19 22:07 Elderly male diabetic presents with polydipsia polyuria lethargy in the setting of a likely broken insulin pump today. Presents with hyperglycemia. Vomited once yesterday but not today and has no abdominal tenderness or doubt DKA. No fever to suggest infection. No trauma. Glucoses in the 400s, labs show pseudohyponatremia and acute kidney injury. Patient has a solitary kidney as well. We will start him on 1 L of fluid to avoid overload given his edema, dose with insulin x1 now, and was discussed with Dr. Villa for admission. - Vital Signs Vital signs: Temp Pulse Resp BP Pulse Ox 98.0 F 41 L 14 116/54 L 95 03/15/19 19:13 03/15/19 19:13 03/15/19 20:01 03/15/19 20:01 03/15/19 19:13 - Laboratory Result Diagrams: 03/15/19 19:37 03/15/19 19:37 Laboratory results interpreted by me: 03/15/19 03/15/19 03/15/19 19: 19:37 19:37 WBC 10.9 H RBC 3.72 L Hgb 11.8 L Hct 35.2 L RDW 15.3 H Plt Count 120 L Lymph % (Auto) 8.9 L Absolute Neuts (auto) 9.0 H Seg Neutrophils % 82.7 H Sodium 132.4 L Chloride 95 L BUN 87 H Creatinine 2.71 H Est GFR ( Amer) 28 L Est GFR (MDRD) Non-Af 23 L Glucose 411 H* POC Glucose 433 H* Calcium 8.3 L Total Protein 6.0 L Discharge - Discharge Clinical Impression: Acute kidney injury, Hyperglycemia due to type 1 diabetes mellitus Condition: Fair Disposition: ADMITTED INPATIENT Admitting Provider: Allen (Hospitalist) Unit Admitted: Telemetry Referrals: CARMEN KIM PA [Primary Care Provider] - Follow up as needed
[2019-03-15 20:02] LABS: ALBUMIN 3.6 g/dL (3.5-5.0); ALKALINE PHOSPHATASE 64 U/L (38-126); ANION GAP 12 (5-19); ASPARTATE AMINO TRANSFERASE 42 U/L (17-59); BILIRUBIN,DIRECT 0.4 mg/dL (0.0-0.4); BILIRUBIN,TOTAL 0.8 mg/dL (0.2-1.3); BLOOD UREA NITROGEN 87 mg/dL (7-20); CALCIUM 8.3 mg/dL (8.4-10.2); CARBON DIOXIDE 25 mmol/L (22-30); CHLORIDE 95 mmol/L (98-107); POTASSIUM 4.6 mmol/L (3.6-5.0)
[2019-03-15 20:11] LABS: GLUCOSE 411 mg/dL (75-110)
[2019-03-15] MEDS ORDERED: NORMAL SALINE 1000 ML 1,000 ML IV ONE (20:48)
[2019-03-15] MEDS ORDERED: INSULIN REG, HUMAN 100 UNIT/ML 3 ML VIAL (PYX) IV ONE (20:48)
[2019-03-15] MEDS ORDERED: IPRATROPIUM/ALBUTEROL 0.5-2.5 MG/3 ML AMPUL NEB PRN (20:51)
[2019-03-15] MEDS ORDERED: MAGNESIUM HYDROXIDE SUSP 30 ML UDCUP PO PRN (20:51)
[2019-03-15] MEDS ORDERED: MAG HYDROX/AL HYDROX/SIMETH SUSP 30 ML UDCUP PO PRN (20:51)
[2019-03-15] MEDS ORDERED: ACETAMINOPHEN 325 MG TABLET PO PRN (20:51)
[2019-03-15] MEDS ORDERED: GLUCAGON,HUMAN RECOMB 1 MG INJ IM PRN (20:51)
[2019-03-15] MEDS ORDERED: DEXTROSE 50%-WATER 25 GM/50 ML DISP.SYRIN IV PRN ×2 (20:51)
[2019-03-15] MEDS ORDERED: DEXTROSE 40% GEL 15 GM TUBE PO PRN ×2 (20:51)
[2019-03-15] MEDS ORDERED: NORMAL SALINE 1000 ML 1,000 ML IV SCH (21:00)
[2019-03-15 22:09] LABS: APPEARANCE,URINE CLEAR; BILIRUBIN,URINE NEGATIVE (NEGATIVE); COLOR,URINE YELLOW; GLUCOSE, URINE 50 mg/dL (NEGATIVE); KETONES,URINE TRACE mg/dL (NEGATIVE); LEUKOCYTE ESTERASE,URINE NEGATIVE (NEGATIVE); NITRITE,URINE NEGATIVE (NEGATIVE); PROTEIN,URINE NEGATIVE (NEGATIVE); URINE SPECIFIC GRAVITY 1.013; UROBILINOGEN,URINE NEGATIVE mg/dL (<2.0)
[2019-03-15] MEDS: INSULIN GLARGINE,HUM.REC.ANLOG 1,000 UNIT/10 ML VIAL SUBCUT SCH (22:47)
[2019-03-15] MEDS: HEPARIN SOD (PORCINE) 5,000 UNIT/ML 1 ML VIAL SUBCUT SCH (23:18)
[2019-03-16] MEDS: HEPARIN SOD (PORCINE) 5,000 UNIT/ML 1 ML VIAL SUBCUT SCH (05:10)
--- NOTE | 2019-03-16 05:18 | PDOC H&P ---
History of Present Illness Admission Date/PCP: 03/15/19 20:52 ZURI KAMINSKI Patient complains of: Hyperglycemia and confusion History of Present Illness: AXEL COLON is a 78 year old male with a past medical history of coronary artery disease, congestive heart failure with an ejection fraction of 35%, AICD, stage III CKD, solitary kidney, insulin-dependent diabetes on insulin pump and recurrent dysfunction. Patient presents with 24 hours of polyuria polydipsia hyperglycemia confusion and fatigue prompting evaluation in the emergency room where he is found to have a disconnected insulin pump, hyperglycemia, hyponatremia and acute on chronic renal failure. He receives insulin, saline and referred to the hospitalist for admission. Patient denies pain and is otherwise feeling improved. Patient denies recent change in medication regiment Past Medical History Cardiac Medical History: Reports: Coronary Artery Disease, Myocardial Infarction - pacemaker/defib, Hyperlipidema, Hypertension Endocrine Medical History: Reports: Diabetes Mellitus Type 1 Musculoskeltal Medical History: Reports: Arthritis Past Surgical History Past Surgical History: Reports: Orthopedic Surgery - right total knee Social History Information Source: Patient, [facility] Lives with: Family Smoking Status: Unknown if Ever Smoked Frequency of Alcohol Use: Occasional Hx Recreational Drug Use: No Drugs: None Hx Prescription Drug Abuse: No - Advance Directive Resuscitation Status: Full Code Family History Family History: CAD Parental Family History Reviewed: Yes Children Family History Reviewed: Yes Sibling(s) Family History Reviewed.: Yes Medication/Allergy Home Medications: Dorzolamide HCl/Timolol Maleat [Cosopt Oph Soln 10 ml] 1 drop OU BID 11/02/12 Bimatoprost [Lumigan 0.01% Oph Soln 2.5 ml/Bottle] 1 drop OU DAILY 12/22/15 Losartan Potassium [Cozaar 100 mg Tablet] 100 mg PO DAILY 02/01/19 Potassium Chloride [Klor-Con M10] 10 meq PO DAILY 02/01/19 Rivaroxaban [Xarelto] 20 mg PO DAILY 02/01/19 Sotalol HCl [Betapace 80 mg Tablet] 80 mg PO Q12 02/01/19 Tamsulosin HCl [Flomax 0.4 mg Cap.sr] 0.4 mg PO PCSUPPER 02/01/19 Furosemide [Lasix 20 mg Tablet] 20 mg PO QAM #30 tablet 02/07/19 Carvedilol [Coreg 3.125 mg Tablet] 3.125 mg PO Q12 03/15/19 Insulin Glulisine [Apidra Insulin (Glulisine) 100 unit/mL] 0 unit PUMP ASDIR PRN 03/15/19 Rosuvastatin Calcium [Crestor 20 mg Tablet] 20 mg PO QHS 03/15/19 Allergies/Adverse Reactions: No Known Allergies Allergy (Verified 02/01/19 11:20) Review of Systems Constitutional: ABSENT: chills, fever(s), headache(s), weight gain, weight loss Eyes: ABSENT: visual disturbances Ears: ABSENT: hearing changes Cardiovascular: ABSENT: chest pain, dyspnea on exertion, edema, orthropnea, palpitations Respiratory: ABSENT: cough, hemoptysis Gastrointestinal: ABSENT: abdominal pain, constipation, diarrhea, hematemesis, hematochezia, nausea, vomiting Genitourinary: ABSENT: dysuria, hematuria Musculoskeletal: ABSENT: joint swelling Integumentary: ABSENT: rash, wounds Neurological: ABSENT: abnormal gait, abnormal speech, confusion, dizziness, focal weakness, syncope Psychiatric: ABSENT: anxiety, depression, homidical ideation, suicidal ideation Endocrine: ABSENT: cold intolerance, heat intolerance, polydipsia, polyuria Hematologic/Lymphatic: ABSENT: easy bleeding, easy bruising Physical Exam Vital Signs: Temp Pulse Resp BP Pulse Ox 97.8 F 86 16 113/42 L 93 03/15/19 23:16 03/16/19 02:00 03/15/19 23:16 03/15/19 23:16 03/15/19 23:16 Intake & Output 03/14/19 03/15/19 03/16/19 11:59 11:59 11:59 Intake Total 1000 Balance 1000 Weight 74 kg General appearance: PRESENT: cooperative, mild distress, well-developed, well- nourished Head exam: PRESENT: atraumatic, normocephalic Eye exam: PRESENT: conjunctiva pink, EOMI, PERRLA. ABSENT: scleral icterus Ear exam: PRESENT: normal external ear exam Mouth exam: PRESENT: dry mucosa, tongue midline Neck exam: ABSENT: carotid bruit, JVD, lymphadenopathy, thyromegaly Respiratory exam: PRESENT: clear to auscultation malcom. ABSENT: rales, rhonchi, wheezes Cardiovascular exam: PRESENT: RRR. ABSENT: diastolic murmur, rubs, systolic murmur Pulses: PRESENT: normal dorsalis pedis pul Vascular exam: PRESENT: normal capillary refill GI/Abdominal exam: PRESENT: normal bowel sounds, soft. ABSENT: distended, guarding, mass, organolmegaly, rebound, tenderness Rectal exam: PRESENT: deferred Extremities exam: PRESENT: full ROM. ABSENT: calf tenderness, clubbing, pedal edema Neurological exam: PRESENT: alert, awake, oriented to person, oriented to place, oriented to time, oriented to situation, CN II-XII grossly intact. ABSENT: motor sensory deficit Psychiatric exam: PRESENT: appropriate affect, normal mood. ABSENT: homicidal ideation, suicidal ideation Skin exam: PRESENT: dry, intact, warm. ABSENT: cyanosis, rash Results Laboratory Results: 03/15/19 19:37 03/15/19 19:37 03/15/19 03/15/19 03/15/19 19:37 19:37 19:37 WBC 10.9 H RBC 3.72 L Hgb 11.8 L Hct 35.2 L MCV 94 MCH 31.6 MCHC 33.5 RDW 15.3 H Plt Count 120 L Seg Neutrophils % 82.7 H Sodium 132.4 L Potassium 4.6 Chloride 95 L Carbon Dioxide 25 Anion Gap 12 BUN 87 H Creatinine 2.71 H Est GFR ( Amer) 28 L Glucose 411 H* Calcium 8.3 L Magnesium 2.3 Total Bilirubin 0.8 AST 42 Alkaline Phosphatase 64 Total Protein 6.0 L Albumin 3.6 Urine Color Urine Appearance Urine pH Ur Specific [place] Urine Protein Urine Glucose (UA) Urine Ketones Urine Blood Urine Nitrite Ur Leukocyte Esterase Urine WBC (Auto) Urine RBC (Auto) 03/15/19 21:40 WBC RBC Hgb Hct MCV MCH MCHC RDW Plt Count Seg Neutrophils % Sodium Potassium Chloride Carbon Dioxide Anion Gap BUN Creatinine Est GFR ( Amer) Glucose Calcium Magnesium Total Bilirubin AST Alkaline Phosphatase Total Protein Albumin Urine Color YELLOW Urine Appearance CLEAR Urine pH 5.0 Ur Specific [place] 1.013 Urine Protein NEGATIVE Urine Glucose (UA) 50 H Urine Ketones TRACE H Urine Blood NEGATIVE Urine Nitrite NEGATIVE Ur Leukocyte Esterase NEGATIVE Urine WBC (Auto) 3 Urine RBC (Auto) 0 Assessment and Plan - Diagnosis (1) Hyperglycemia due to type 1 diabetes mellitus Is this a current diagnosis for this admission?: Yes Plan: Secondary to recurrent insulin pump dysfunction. Discontinued, Lantus and Humalog sliding scale ordered. Follow-up A1c and Chem-7 (2) Acute kidney injury Is this a current diagnosis for this admission?: Yes Plan: Multifactorial, solitary kidney, prerenal azotemia, IV fluid challenge, avoid nephrotoxic meds and doses follow-up chemistry (3) Confusion Is this a current diagnosis for this admission?: Yes Plan: Possibly secondary to hyperglycemia. Improved, supportive care (4) Hyponatremia Is this a current diagnosis for this admission?: Yes Plan: Pseudohyponatremia secondary to hyperglycemia. Follow-up chemistry - Time Time Spent with patient: 25-34 minutes - Inpatient Certification Medical Necessity: Need Close Monitoring Due to Risk of Patient Decompensation
[2019-03-16 06:28] LABS: ABSOLUTE LYMPHOCYTES (AUTO) 1.5 10^3/uL (0.5-4.7); ABSOLUTE NEUT (AUTO) 12.3 10^3/uL (1.7-8.2); BASOPHILS % (AUTO) 0.1 % (0-2); HEMATOCRIT 37.9 % (37.9-51.0); HEMOGLOBIN 12.8 g/dL (13.5-17.0); LYMPHOCYTES % (AUTO) 9.8 % (13-45); MEAN CORPUSCULAR HEMOGLOBIN 31.6 pg (27.0-33.4); MEAN CORPUSCULAR HGB CONC 33.7 g/dL (32.0-36.0); MEAN CORPUSCULAR VOLUME 94 fl (80-97); MONOCYTES % (AUTO) 6.8 % (3-13); PLATELET COUNT 108 10^3/uL (150-450); RED BLOOD COUNT 4.03 10^6/uL (4.35-5.55); RED CELL DISTRIBUTION WIDTH 15.4 % (11.5-14.0); SEGMENTED NEUTROPHILS % (AUTO) 83.3 % (42-78); TOTAL CELLS COUNTED % (AUTO) 100 %; WHITE BLOOD COUNT 14.8 10^3/uL (4.0-10.5)
[2019-03-16 06:48] LABS: ANION GAP 11 (5-19); BLOOD UREA NITROGEN 79 mg/dL (7-20); CALCIUM 7.9 mg/dL (8.4-10.2); CARBON DIOXIDE 25 mmol/L (22-30); CHLORIDE 103 mmol/L (98-107); GLUCOSE 236 mg/dL (75-110); POTASSIUM 4.9 mmol/L (3.6-5.0)
[2019-03-16] MEDS: INSULIN LISPRO 100 UNIT/ML 3 ML VIAL SUBCUT SCH ×3 (08:16→17:39)
--- NOTE | 2019-03-16 08:34 | Progress Note ---
Provider Note Provider Note: 03/16/2019-patient admitted early a.m. I have evaluated patient went to laboratory database and home reconciliation medications. We will continue to follow
[2019-03-16] MEDS ORDERED: CALCIUM GLUCONATE 1,000 MG in DEXTROSE 5%-WATER 50 ML IV ONE (08:43)
[2019-03-16] MEDS ORDERED: (PENDING PHARMACY ID) (Bimatoprost [Lumigan 0.01% Oph Soln 2.5 Ml/Bottle] 1 DROP) OU SCH (10:00)
[2019-03-16] MEDS ORDERED: CALCIUM GLUCONATE 1000 MG/10 ML INJ IV ONE (10:00)
[2019-03-16] MEDS: CARVEDILOL 3.125 MG TABLET PO SCH ×2 (10:51→22:16)
[2019-03-16] MEDS: DOCUSATE SODIUM 100 MG CAPSULE PO SCH ×2 (10:52→17:40)
[2019-03-16] MEDS: RIVAROXABAN 10 MG TABLET PO SCH (10:53)
[2019-03-16] MEDS: INSULIN GLARGINE,HUM.REC.ANLOG 1,000 UNIT/10 ML VIAL SUBCUT SCH ×2 (10:54→22:16)
[2019-03-16] MEDS: SOTALOL HCL 80 MG TABLET PO SCH ×2 (12:02→22:16)
--- NOTE | 2019-03-16 12:59 | EKG REPORT ---
SEVERITY:- ABNORMAL ECG - ATRIAL FIBRILLATION VENTRICULAR BIGEMINY LOW VOLTAGE IN FRONTAL LEADS CONSIDER ANTEROSEPTAL INFARCT NONSPECIFIC T ABNORMALITIES, LATERAL LEADS : Confirmed by: Mary Kay Pizarro MD 16-Mar-2019 12:58:26
[2019-03-16] MEDS ORDERED: TAMSULOSIN HCL 0.4 MG CAP.SR.24H PO SCH (18:00)
[2019-03-16] MEDS ORDERED: ATORVASTATIN CALCIUM 40 MG TABLET PO SCH (22:00)
[2019-03-16] MEDS ORDERED: (PENDING PHARMACY ID) (Rosuvastatin Calcium [Crestor 20 Mg Tablet] 20 MG) PO SCH (22:00)
[2019-03-17 05:35] LABS: HEMATOCRIT 37.6 % (37.9-51.0); HEMOGLOBIN 12.6 g/dL (13.5-17.0); MEAN CORPUSCULAR HEMOGLOBIN 31.4 pg (27.0-33.4); MEAN CORPUSCULAR HGB CONC 33.7 g/dL (32.0-36.0); MEAN CORPUSCULAR VOLUME 93 fl (80-97); RED BLOOD COUNT 4.03 10^6/uL (4.35-5.55); RED CELL DISTRIBUTION WIDTH 15.6 % (11.5-14.0); WHITE BLOOD COUNT 6.9 10^3/uL (4.0-10.5)
[2019-03-17 05:55] LABS: ANION GAP 5 (5-19); BLOOD UREA NITROGEN 67 mg/dL (7-20); CALCIUM 8.1 mg/dL (8.4-10.2); CARBON DIOXIDE 29 mmol/L (22-30); CHLORIDE 106 mmol/L (98-107); GLUCOSE 151 mg/dL (75-110); POTASSIUM 4.3 mmol/L (3.6-5.0)
[2019-03-17 06:52] LABS: PLATELET COUNT 96 10^3/uL (150-450)
[2019-03-17] MEDS: INSULIN LISPRO 100 UNIT/ML 3 ML VIAL SUBCUT SCH ×2 (08:31→12:17)
[2019-03-17] MEDS: DOCUSATE SODIUM 100 MG CAPSULE PO SCH (10:28)
[2019-03-17] MEDS: CARVEDILOL 3.125 MG TABLET PO SCH (10:28)
[2019-03-17] MEDS: RIVAROXABAN 10 MG TABLET PO SCH (10:28)
[2019-03-17] MEDS: SOTALOL HCL 80 MG TABLET PO SCH (10:29)
[2019-03-17] MEDS: INSULIN GLARGINE,HUM.REC.ANLOG 1,000 UNIT/10 ML VIAL SUBCUT SCH (10:30)
[2019-03-17] MEDS ORDERED: LATANOPROST 0.005% OPH SOLN 2.5 ML OU SCH (13:00)
[2019-03-17 14:54] VITALS: BP 134/69
--- NOTE | 2019-03-17 15:49 | PDOC DISCHARGE SUMMARY ---
Impression - Admit/DC Date/PCP Admission Date/Primary Care Provider: 03/15/19 20:52 ZURI KAMINSKI Discharge Date: 03/17/19 - Discharge Diagnosis (1) Acute kidney injury Is this a current diagnosis for this admission?: Yes (2) Confusion Is this a current diagnosis for this admission?: Yes (3) Hyperglycemia due to type 1 diabetes mellitus Is this a current diagnosis for this admission?: Yes (4) Hyponatremia Is this a current diagnosis for this admission?: Yes - Additional Information Resuscitation Status: Full Code Discharge Diet: Cardiac, Diabetic Discharge Activity: Activity As Tolerated, Balance Activity w/Rest Referrals: CARMEN KIM PA [Primary Care Provider] - Follow up as needed Home Medications: Dorzolamide HCl/Timolol Maleat [Cosopt Oph Soln 10 ml] 1 drop OU BID 11/02/12 Bimatoprost [Lumigan 0.01% Oph Soln 2.5 ml/Bottle] 1 drop OU DAILY 12/22/15 Losartan Potassium [Cozaar 100 mg Tablet] 100 mg PO DAILY 02/01/19 Potassium Chloride [Klor-Con M10] 10 meq PO DAILY 02/01/19 Rivaroxaban [Xarelto] 20 mg PO DAILY 02/01/19 Sotalol HCl [Betapace 80 mg Tablet] 80 mg PO Q12 02/01/19 Tamsulosin HCl [Flomax 0.4 mg Cap.sr] 0.4 mg PO PCSUPPER 02/01/19 Furosemide [Lasix 20 mg Tablet] 20 mg PO QAM #30 tablet 02/07/19 Carvedilol [Coreg 3.125 mg Tablet] 3.125 mg PO Q12 03/15/19 Insulin Glulisine [Apidra Insulin (Glulisine) 100 unit/mL] 0 unit PUMP ASDIR PRN 03/15/19 Rosuvastatin Calcium [Crestor 20 mg Tablet] 20 mg PO QHS 03/15/19 Acetaminophen [Tylenol 325 mg Tablet] 650 mg PO Q4HP PRN tablet 03/17/19 Docusate Sodium [Colace 100 mg Capsule] 100 mg PO BID capsule 03/17/19 History of Present Illiness History of Present Illness: Per H&P by Dr. Villa: AXEL COLON is a 78 year old male with a past medical history of coronary artery disease, congestive heart failure with an ejection fraction of 35%, AICD, stage III CKD, solitary kidney, insulin- dependent diabetes on insulin pump and recurrent dysfunction. Patient presents with 24 hours of polyuria polydipsia hyperglycemia confusion and fatigue prompting evaluation in the emergency room where he is found to have a disconnected insulin pump, hyperglycemia, hyponatremia and acute on chronic renal failure. He receives insulin, saline and referred to the hospitalist for admission. Patient denies pain and is otherwise feeling improved. Patient denies recent change in medication regiment Hospital Course Hospital Course: The patient was admitted to the medical floor. He was provided gentle IV fluids and placed on Lantus and sliding scale insulin. His leukocytosis has resolved, hemoglobin is stable, and renal function has returned to its baseline. Patient is tolerating a consistent carb diet. He is now alert and oriented x4, independent of ADLs, and ambulatory on room air. He is requesting discharge to home with resumption of his prior insulin regimen utilizing his insulin pump; did offer to provide prescriptions for insulin pen or vials/syringes. He has been in contact with family members and verifies that he does have adequate insulin and OpSite supplies. The patient is discharged home in stable condition with self-care. He is advised to resume his insulin pump basal rate this evening at approximately 7:30 PM. We discussed his options for bolus dosing for dinner this evening. He is instructed to check his blood sugars 4 times daily (before meals and at bedtime) and to verify that site and pump are functioning correctly if he notes unexplained increase in blood sugar. He is instructed to eat a consistent carb diet. He is advised to take his medications as prescribed. He is instructed to follow up with his PCP within 1 week, to notify his commercial sales manager of his admission and follow-up as directed, and to return to the emergency department as needed for concerning symptoms. Physical Exam Vital Signs: Temp Pulse Resp BP Pulse Ox 97.4 F 77 18 139/73 H 94 03/17/19 14:13 03/17/19 14:13 03/17/19 14:13 03/17/19 14:13 03/17/19 14:13 Intake & Output 03/16/19 03/17/19 03/18/19 06:59 06:59 06:59 Intake Total 1000 580 Output Total 0 Balance 1000 580 Weight 75 kg 74.8 kg General appearance: PRESENT: no acute distress, cooperative, well-developed, well-nourished Head exam: PRESENT: atraumatic, normocephalic Eye exam: PRESENT: conjunctiva pink, EOMI, PERRLA. ABSENT: scleral icterus Ear exam: PRESENT: normal external ear exam Mouth exam: PRESENT: moist, tongue midline Neck exam: ABSENT: carotid bruit, JVD, lymphadenopathy, thyromegaly Respiratory exam: PRESENT: clear to auscultation malcom, symmetrical, unlabored. ABSENT: rales, rhonchi, wheezes Cardiovascular exam: PRESENT: RRR, +S1, +S2. ABSENT: diastolic murmur, rubs, systolic murmur Pulses: PRESENT: normal dorsalis pedis pul Vascular exam: PRESENT: normal capillary refill GI/Abdominal exam: PRESENT: normal bowel sounds, soft. ABSENT: distended, guarding, mass, organolmegaly, rebound, tenderness Rectal exam: PRESENT: deferred Extremities exam: PRESENT: full ROM. ABSENT: calf tenderness, clubbing, pedal edema Neurological exam: PRESENT: alert, awake, oriented to person, oriented to place, oriented to time, oriented to situation, CN II-XII grossly intact. ABSENT: motor sensory deficit Psychiatric exam: PRESENT: appropriate affect, normal mood. ABSENT: homicidal ideation, suicidal ideation Skin exam: PRESENT: dry, intact, warm. ABSENT: cyanosis, rash Results Laboratory Results: WBC 6.9 10^3/uL (4.0-10.5) 03/17/19 05:15 RBC 4.03 10^6/uL (4.35-5.55) L 03/17/19 05:15 Hgb 12.6 g/dL (13.5-17.0) L 03/17/19 05:15 Hct 37.6 % (37.9-51.0) L 03/17/19 05:15 MCV 93 fl (80-97) 03/17/19 05:15 MCH 31.4 pg (27.0-33.4) 03/17/19 05:15 MCHC 33.7 g/dL (32.0-36.0) 03/17/19 05:15 RDW 15.6 % (11.5-14.0) H 03/17/19 05:15 Plt Count 96 10^3/uL (150-450) L 03/17/19 05:15 Lymph % (Auto) 9.8 % (13-45) L 03/16/19 05:56 [place] % (Auto) 6.8 % (3-13) 03/16/19 05:56 Eos % (Auto) 0.0 % (0-6) 03/16/19 05:56 Baso % (Auto) 0.1 % (0-2) 03/16/19 05:56 Absolute Neuts (auto) 12.3 10^3/uL (1.7-8.2) H 03/16/19 05:56 Absolute Lymphs (auto) 1.5 10^3/uL (0.5-4.7) 03/16/19 05:56 Absolute Monos (auto) 1.0 10^3/uL (0.1-1.4) 03/16/19 05:56 Absolute Eos (auto) 0.0 10^3/uL (0.0-0.6) 03/16/19 05:56 Absolute Basos (auto) 0.0 10^3/uL (0.0-0.2) 03/16/19 05:56 Seg Neutrophils % 83.3 % (42-78) H 03/16/19 05:56 Sodium 140.2 mmol/L (137-145) 03/17/19 05:15 Potassium 4.3 mmol/L (3.6-5.0) 03/17/19 05:15 Chloride 106 mmol/L (98-107) 03/17/19 05:15 Carbon Dioxide 29 mmol/L (22-30) 03/17/19 05:15 Anion Gap 5 (5-19) 03/17/19 05:15 BUN 67 mg/dL (7-20) H 03/17/19 05:15 Creatinine 1.52 mg/dL (0.52-1.25) H 03/17/19 05:15 Est GFR ( Amer) 54 (>60) L 03/17/19 05:15 Est GFR (MDRD) Non-Af 45 (>60) L 03/17/19 05:15 Glucose 151 mg/dL (75-110) H 03/17/19 05:15 POC Glucose 152 mg/dL (70-110) H 03/17/19 11:38 Calcium 8.1 mg/dL (8.4-10.2) L 03/17/19 05:15 Magnesium 2.3 mg/dL (1.6-2.3) 03/15/19 19:37 Total Bilirubin 0.8 mg/dL (0.2-1.3) 03/15/19 19:37 Direct Bilirubin 0.4 mg/dL (0.0-0.4) 03/15/19 19:37 Neonat Total Bilirubin Not Reportable 03/15/19 19:37 Neonat Direct Bilirubin Not Reportable 03/15/19 19:37 Neonat Indirect Bili Not Reportable 03/15/19 19:37 AST 42 U/L (17-59) 03/15/19 19:37 ALT 18 U/L (<50) 03/15/19 19:37 Alkaline Phosphatase 64 U/L (38-126) 03/15/19 19:37 Total Protein 6.0 g/dL (6.3-8.2) L 03/15/19 19:37 Albumin 3.6 g/dL (3.5-5.0) 03/15/19 19:37 Urine Color YELLOW 03/15/19 21:40 Urine Appearance CLEAR 03/15/19 21:40 Urine pH 5.0 (5.0-9.0) 03/15/19 21:40 Ur Specific [place] 1.013 03/15/19 21:40 Urine Protein NEGATIVE mg/dL (NEGATIVE) 03/15/19 21:40 Urine Glucose (UA) 50 mg/dL (NEGATIVE) H 03/15/19 21:40 Urine Ketones TRACE mg/dL (NEGATIVE) H 03/15/19 21:40 Urine Blood NEGATIVE (NEGATIVE) 03/15/19 21:40 Urine Nitrite NEGATIVE (NEGATIVE) 03/15/19 21:40 Urine Bilirubin NEGATIVE (NEGATIVE) 03/15/19 21:40 Urine Urobilinogen NEGATIVE mg/dL (<2.0) 03/15/19 21:40 Ur Leukocyte Esterase NEGATIVE (NEGATIVE) 03/15/19 21:40 Urine WBC (Auto) 3 /HPF 03/15/19 21:40 Urine RBC (Auto) 0 /HPF 03/15/19 21:40 U Hyaline Cast (Auto) 8 /LPF 03/15/19 21:40 Squamous Epi Cells Auto <1 /HPF 03/15/19 21:40 Urine Mucus (Auto) RARE /LPF 03/15/19 21:40 Urine Ascorbic Acid NEGATIVE (NEGATIVE) 03/15/19 21:40 Plan Plan of Treatment: Patient is discharged home in stable condition with self-care. He is advised to resume his insulin pump this evening. He is instructed to follow up with his primary care provider within 1 week. Notify commercial sales manager of admission and follow up as directed. Take medications as prescribed. Check your blood sugar before meals and bed. If noted unexplained increases in blood sugar, verify that pump and insulin site are functioning correctly. Return to the emergency department as needed for concerning symptoms. Time Spent: Greater than 30 Minutes Stroke Is this a Stroke Patient?: No Acute Heart Failure - Is this a Heart Failure Patient?: No
== END 2019-03-17 14:55 | disposition home or self-care (01) | DRG 683 ==
LOC: ER 18:57 → EH 20:52 → 4S 23:14
PROVIDERS: ADMIT Internal Medicine; ATTEND Internal Medicine
DX: N17.9 Acute kidney failure, unspecified (principal); E87.1 Hypo-osmolality and hyponatremia; I13.0 Hypertensive heart and chronic kidney disease with heart failure and stage 1 through stage 4 chronic kidney disease, or unspecified chronic kidney disease; I50.9 Heart failure, unspecified; I25.10 Atherosclerotic heart disease of native coronary artery without angina pectoris; T85.9XXA Unspecified complication of internal prosthetic device, implant and graft, initial encounter; N18.3 Chronic kidney disease, stage 3 (moderate); E10.22 Type 1 diabetes mellitus with diabetic chronic kidney disease; E10.65 Type 1 diabetes mellitus with hyperglycemia; Z79.4 Long term (current) use of insulin; I25.2 Old myocardial infarction; E78.5 Hyperlipidemia, unspecified; Z82.49 Family history of ischemic heart disease and other diseases of the circulatory system; Z90.5 Acquired absence of kidney; Z96.41 Presence of insulin pump (external) (internal); Z95.810 Presence of automatic (implantable) cardiac defibrillator
CPT/HCPCS: 36415; 80048; 80053; 81001; 82962; 83735; 85025; 85027; 93005; 93010; 99285; J0610; J1815; J3490; J7030

== ENCOUNTER 2019-06-07 17:52 | Emergency (ER) | payer MEDICARE, BC ==
[2019-06-07] MEDS: DEXTROSE 50%-WATER 25 GM/50 ML DISP.SYRIN IV ONE ×2 (18:25)
[2019-06-07] MEDS ORDERED: DEXTROSE 50%-WATER 25 GM/50 ML DISP.SYRIN IV ONE (18:37)
[2019-06-07 19:27] LABS: ABSOLUTE BASOPHILS # (AUTO) 0.1 10^3/uL (0.0-0.2); ABSOLUTE EOSINOPHILS # (AUTO) 0.2 10^3/uL (0.0-0.6); ABSOLUTE LYMPHOCYTES (AUTO) 1.5 10^3/uL (0.5-4.7); ABSOLUTE MONOCYTES (AUTO) 0.4 10^3/uL (0.1-1.4); ABSOLUTE NEUT (AUTO) 3.3 10^3/uL (1.7-8.2); EOSINOPHILS % (AUTO) 2.8 % (0-6); HEMATOCRIT 42.6 % (37.9-51.0); HEMOGLOBIN 14.4 g/dL (13.5-17.0); MEAN CORPUSCULAR HEMOGLOBIN 32.1 pg (27.0-33.4); MEAN CORPUSCULAR HGB CONC 33.7 g/dL (32.0-36.0); MEAN CORPUSCULAR VOLUME 95 fl (80-97); MONOCYTES % (AUTO) 6.8 % (3-13); PLATELET COUNT 124 10^3/uL (150-450); RED BLOOD COUNT 4.47 10^6/uL (4.35-5.55); RED CELL DISTRIBUTION WIDTH 14.2 % (11.5-14.0); SEGMENTED NEUTROPHILS % (AUTO) 61.4 % (42-78); TOTAL CELLS COUNTED % (AUTO) 100 %; WHITE BLOOD COUNT 5.4 10^3/uL (4.0-10.5)
[2019-06-07 19:32] LABS: PROTHROMBIN TIME 16.3 SEC (11.4-15.4)
[2019-06-07 19:34] LABS: ALBUMIN 3.7 g/dL (3.5-5.0); ALKALINE PHOSPHATASE 78 U/L (38-126); ANION GAP 5 (5-19); ASPARTATE AMINO TRANSFERASE 24 U/L (17-59); BILIRUBIN,DIRECT 0.1 mg/dL (0.0-0.4); BILIRUBIN,TOTAL 0.5 mg/dL (0.2-1.3); BLOOD UREA NITROGEN 32 mg/dL (7-20); CALCIUM 9.4 mg/dL (8.4-10.2); CARBON DIOXIDE 33 mmol/L (22-30); CHLORIDE 99 mmol/L (98-107); GLUCOSE 266 mg/dL (75-110); POTASSIUM 4.2 mmol/L (3.6-5.0); TOTAL PROTEIN 6.5 g/dL (6.3-8.2)
[2019-06-07 19:46] LABS: VENOUS BLOOD BASE EXCESS 3.9 mmol/L; VENOUS BLOOD HCO3 32.1 mmol/L (20-32); VENOUS BLOOD PH 7.32 (7.30-7.42)
--- NOTE | 2019-06-07 20:40 | ER Document Report ---
ED General - General Chief Complaint: Low Blood Sugar Stated Complaint: UNRESPONSIVE/BLOOD SUGAR ISSUE Time Seen by Provider: 06/07/19 19:14 Primary Care Provider: FATEMEH JOHNSON MD [Primary Care Provider] - Follow up as needed Notes: 78-year-old man presents to the emergency department with a complaint of low bl ood sugar and decreased responsiveness. Apparently he has had multiple episodes similar in the past. Patient was found on conscious and unresponsive, he was responsive to painful stimuli. Apparently glucose was noted to be low the patient was given IV glucose and D10 was infusing at the time he arrived to the hospital. In the emergency department her glucose which had come to 72 was found to be in the 40s and a amp of D50 was given. Patient is alert and responsive at this time and states that he has not eaten since lunchtime. He denies chest pain shortness of breath or other associated symptoms. TRAVEL OUTSIDE OF THE [place] IN LAST 30 DAYS: No - Related Data Allergies/Adverse Reactions: No Known Allergies Allergy (Verified 02/01/19 11:20) Past Medical History - Social History Smoking Status: Unknown if Ever Smoked Family History: CAD Patient has suicidal ideation: No Patient has homicidal ideation: No - Past Medical History Cardiac Medical History: Reports: Hx Coronary Artery Disease, Hx Heart Attack - pacemaker/defib, Hx Hypercholesterolemia, Hx Hypertension Endocrine Medical History: Reports: Hx Diabetes Mellitus Type 1 Renal/ Medical History: Reports: Hx Renal Insufficiency. 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 HENT: Negative for sore throat. Eyes: Negative for visual changes. Cardiovascular: Negative for chest pain. Respiratory: Negative for shortness of breath. Gastrointestinal: Negative for abdominal pain, vomiting or diarrhea. Genitourinary: Negative for dysuria. Musculoskeletal: Negative for back pain. Skin: Negative for rash. Neurological: + Episodic unresponsiveness. 10 point ROS negative except as marked above and in HPI. Physical Exam - Vital signs Vitals: Pulse Ox 100 06/07/19 18:06 - Notes Notes: PHYSICAL EXAMINATION: Physical Exam: General: Alert and responsive 78-year-old male in no acute distress HEENT: NC/AT, pupils equal round and reactive to light, MM moist,nares clear, oropharynx clear Neck: supple, no adenopathy, no masses. Lungs: clear, no wheezing, no rales no rhonchi CVS: Regular rate and rhythm no murmur gallop or rub Abdomen: Soft active nontender, no masses, no hepatosplenomegaly Ext: Bilateral lower extremity 2+ edema Neuro: Alert and responsive, moving all 4 extremities on command, cranial nerves intact. Skin: Intact no open lesions, no rash PSYCH: Normal mood, normal affect. Course - Re-evaluation Re-evalutation: 06/07/19 20:42 Patient is given food to eat, will monitor his blood sugar closely for further decreases in the level. Is my expectoration that he hopefully can go home however if he drops his blood sugar or becomes unresponsive we will have to observe him in the hospital. I explained this to the patient and he is in agreement with that plan. 06/08/19 00:10 Patient continues to do well and blood sugar controlled. Will discharge home to follow-up with his primary as needed. - Vital Signs Vital signs: Temp Pulse Resp BP Pulse Ox 97.9 F 88 19 136/36 H 100 06/07/19 22:03 06/07/19 18:10 06/07/19 22:03 06/07/19 22:03 06/07/19 22:03 - Laboratory Result Diagrams: 06/07/19 18:36 06/07/19 18:36 Laboratory results interpreted by me: 06/07/19 06/07/19 06/07/19 18:12 18:36 18:36 RDW 14.2 H Plt Count 124 L PT 16.3 H VBG pCO2 VBG HCO3 Sodium Carbon Dioxide BUN Glucose POC Glucose 50 L 06/07/19 06/07/19 18:36 19:28 RDW Plt Count PT VBG pCO2 64.0 H VBG HCO3 32.1 H Sodium 136.8 L Carbon Dioxide 33 H BUN 32 H Glucose 266 H POC Glucose 06/07/19 20:43 I have reviewed laboratory data and used this information for the treatment decisions regarding the patient. - EKG Interpretation by Me EKG shows normal: Sinus rhythm - Rate of 89, PVCs with a aberrant complexes, no acute ST or T wave abnormalities noted, Discharge - Discharge Clinical Impression: Hyperglycemia due to type 1 diabetes mellitus Condition: Good Instructions: Hypoglycemia ([facility]) Additional Instructions: You are diagnosed with hypoglycemia in the emergency department, monitor the blood sugar closely and use them supplemental glucose as needed. Please return to the emergency department if there is a altered mental status loss of consciousness or other concerns. Referrals: FATEMEH JOHNSON MD [Primary Care Provider] - Follow up as needed
--- NOTE | 2019-06-07 21:26 | EKG REPORT ---
SEVERITY:- ABNORMAL ECG - ATRIAL FIBRILLATION WITH INTERMITTENT V PACED COMLEXES : Confirmed by: Mary Kay Pizarro MD 07-Jun-2019 21:25:53
[2019-06-08 00:53] VITALS: BP 116/65
== END 2019-06-08 00:53 | disposition home or self-care (01) ==
LOC: ER 17:52
DX: E10.65 Type 1 diabetes mellitus with hyperglycemia (principal); I25.10 Atherosclerotic heart disease of native coronary artery without angina pectoris; I25.2 Old myocardial infarction; I10 Essential (primary) hypertension
CPT/HCPCS: 93005; 99284; 96374; 36415; 87040; 82962; 83605; 85025; 85610; 80053; 82803; 93010; J3490

== ENCOUNTER 2019-08-25 22:37 | Emergency (ER) | payer MEDICARE, BC ==
--- NOTE | 2019-08-25 23:40 | RADIOLOGY REPORT (SQ) ---
EXAM DESCRIPTION: AP portable view of the chest CLINICAL HISTORY: 78 years Male, palpitations COMPARISON: Portable view of the chest February 04, 2019 FINDINGS: Exam is overpenetrated. This limits clinical utility. Lungs: No focal consolidation. No pneumonia or edema. No pneumothorax or pleural effusion. Mediastinum: Cardiac and mediastinal silhouette are unchanged. ICD device is in place and there is leads projecting over the mediastinum which may be intrinsic or extrinsic to the patient. External defibrillator pads are noted. Bones: Osseous structures are stable IMPRESSION: 1. No pneumonia or edema. 2. Stable appearance of the cardiac and mediastinal silhouette.
[2019-08-25 23:56] LABS: ABSOLUTE BASOPHILS # (AUTO) 0.1 10^3/uL (0.0-0.2); ABSOLUTE EOSINOPHILS # (AUTO) 0.3 10^3/uL (0.0-0.6); ABSOLUTE LYMPHOCYTES (AUTO) 1.4 10^3/uL (0.5-4.7); ABSOLUTE MONOCYTES (AUTO) 0.7 10^3/uL (0.1-1.4); ABSOLUTE NEUT (AUTO) 4.9 10^3/uL (1.7-8.2); BASOPHILS % (AUTO) 0.9 % (0-2); EOSINOPHILS % (AUTO) 3.7 % (0-6); HEMATOCRIT 42.5 % (37.9-51.0); HEMOGLOBIN 14.7 g/dL (13.5-17.0); LYMPHOCYTES % (AUTO) 19.6 % (13-45); MEAN CORPUSCULAR HEMOGLOBIN 33.1 pg (27.0-33.4); MEAN CORPUSCULAR HGB CONC 34.6 g/dL (32.0-36.0); MEAN CORPUSCULAR VOLUME 96 fl (80-97); PLATELET COUNT 163 10^3/uL (150-450); RED BLOOD COUNT 4.45 10^6/uL (4.35-5.55); RED CELL DISTRIBUTION WIDTH 15.9 % (11.5-14.0); SEGMENTED NEUTROPHILS % (AUTO) 66.8 % (42-78); TOTAL CELLS COUNTED % (AUTO) 100 %; WHITE BLOOD COUNT 7.3 10^3/uL (4.0-10.5)
[2019-08-26 00:03] LABS: ALBUMIN 3.6 g/dL (3.5-5.0); ALKALINE PHOSPHATASE 72 U/L (38-126); ANION GAP 5 (5-19); ASPARTATE AMINO TRANSFERASE 29 U/L (17-59); BILIRUBIN,DIRECT 0.1 mg/dL (0.0-0.4); BILIRUBIN,TOTAL 0.7 mg/dL (0.2-1.3); BLOOD UREA NITROGEN 26 mg/dL (7-20); CARBON DIOXIDE 29 mmol/L (22-30); CHLORIDE 102 mmol/L (98-107); GLUCOSE 75 mg/dL (75-110); POTASSIUM 4.8 mmol/L (3.6-5.0); TOTAL PROTEIN 6.3 g/dL (6.3-8.2)
--- NOTE | 2019-08-26 00:04 | ER Document Report ---
Entered by OTILIA GRIFFITHS SCRIBE 08/25/19 [id number] Acting as scribe for:RICHIE BENÍTEZ IV, MD ED General - General Chief Complaint: Low Blood Sugar Stated Complaint: PACEMAKER FIRED,HYPOGLYCEMIA Time Seen by Provider: 08/25/19 22:50 Primary Care Provider: FATEMEH JOHNSON MD [Primary Care Provider] - Follow up as needed Mode of Arrival: Medic Information source: Patient, Emergency Med Personnel Notes: This 78 year old male patient with a history of insulin-dependent diabetes mellitus brought in by EMS presents to the ED today with complaints hypoglycemia and pacemaker failing to capture that occurred prior to arrival. According to EM S, the patient's BGL was 35 at home, so they administered 15 g oral glucose, orange juice, and carbs. EMS states that the patient ate supper and took his insulin prior to their arrival. EMS reports that they noticed that the "pacemaker is not pacing as it should" on the EKG read. Patient denies palp itations or chest pain and reports that his pacemaker loan funder is [employer]. TRAVEL OUTSIDE OF THE [place] IN LAST 30 DAYS: No - Related Data Allergies/Adverse Reactions: No Known Allergies Allergy (Verified 02/01/19 11:20) Past Medical History - General Information source: Patient, [facility], [facility] Records - Social History Smoking Status: Never Smoker Cigarette use (# per day): No Chew tobacco use (# tins/day): No Smoking Education Provided: No Frequency of alcohol use: None Drug Abuse: None Lives with: Spouse/Significant other Family History: CAD Patient has suicidal ideation: No Patient has homicidal ideation: No - Past Medical History Cardiac Medical History: Reports: Hx Coronary Artery Disease, Hx Heart Attack - pacemaker/defib, Hx Hypercholesterolemia, Hx Hypertension Endocrine Medical History: Reports: Hx Diabetes Mellitus Type 1 Renal/ Medical History: Reports: Hx Renal Insufficiency Musculoskeletal Medical History: Reports Hx Arthritis Past Surgical History: Reports: Hx Coronary Artery Bypass Graft - x4, Hx Kidney (Renal Surgery) - 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 denies: Chest pain, Palpitations Respiratory: No symptoms reported Gastrointestinal: No symptoms reported Genitourinary: No symptoms reported Male Genitourinary: No symptoms reported Musculoskeletal: No symptoms reported Skin: No symptoms reported Hematologic/Lymphatic: No symptoms reported Neurological/Psychological: No symptoms reported -: Yes All other systems reviewed and negative Physical Exam - Vital signs Vitals: Pulse Resp BP Pulse Ox 83 14 156/98 H 93 08/25/19 22:45 08/25/19 22:45 08/25/19 22:45 08/25/19 22:45 Interpretation: Hypertensive - General General appearance: Alert In distress: None - HEENT Head: Normocephalic, Atraumatic Eyes: Normal Pupils: PERRL - Respiratory Respiratory status: No respiratory distress Chest status: Nontender Breath sounds: Normal Chest palpation: Normal - Cardiovascular Rhythm: Regular Heart sounds: Normal auscultation Murmur: No Friction rub: No Gallop: None auscultated - Abdominal Inspection: Normal Distension: No distension Bowel sounds: Normal Tenderness: Nontender - Abdomen soft Organomegaly: No organomegaly - Back Back: Normal, Nontender - Extremities General upper extremity: Normal inspection General lower extremity: Normal inspection - Neurological Neuro grossly intact: Yes - Psychological Associated symptoms: Normal affect, Normal mood - Skin Skin Temperature: Warm Skin Moisture: Dry Skin Color: Normal Course - Re-evaluation Re-evalutation: 08/26/19 01:34 Pacemaker/AICD function discussed with Kb with [employer] at 2343 hrs. Kb stated that the patient typically has frequent PVCs but does not see anything out of the ordinary, unusual or pathologic in terms of the rhythms being transported to [employer]. Results of ED MSE discussed with patient. All questions were answered prior to discharge. Emergency signs and symptoms, reasons to return to the emergency department discussed with patient. - Vital Signs Vital signs: Temp Pulse Resp BP Pulse Ox 97.6 F 83 14 156/98 H 93 08/25/19 22:48 08/25/19 22:45 08/25/19 22:45 08/25/19 22:45 08/25/19 22:45 - Laboratory Result Diagrams: 08/25/19 23:03 08/25/19 23:03 Laboratory results interpreted by me: 08/25/19 08/25/19 08/26/19 23:03 23:03 00:26 RDW 15.9 H Sodium 135.7 L BUN 26 H POC Glucose Urine Urobilinogen 2.0 H Urine Ascorbic Acid 20 H 08/26/19 01:02 RDW Sodium BUN POC Glucose 138 H Urine Urobilinogen Urine Ascorbic Acid - Diagnostic Test Radiology reviewed: Reports reviewed - EKG Interpretation by Me Additional EKG results interpreted by me: 08/26/19 01:36 EKG obtained on 08/25/2019 at 2303 hrs. was interpreted by this MD. Findings: Atrial paced complexes, rate of 70, borderline left axis deviation is present, there are no obvious ST segment patterns of elevation or depression present to suggest acute myocardial ischemia or infarction. Impression atrial paced rhythm with nonspecific ST segments. Discharge - Discharge Clinical Impression: Hypoglycemia Condition: Good Disposition: HOME, SELF-CARE Additional Instructions: Return to the Emergency Department without delay if any worse. HOME CARE INSTRUCTIONS & INFORMATION: Thank you for choosing us for your medical needs. We hope you're satisfied with the care you received. After you leave, you must properly care for your problem and, at the same time, observe its progress. Any condition can change. Some illnesses can change rapidly over hours or days. If your condition worsens, return to the Emergency Department or see your physician promptly. ABOUT YOUR X-RAYS AND EKG'S: If you had an EKG or X-rays taken, they have been read by the Emergency Physician. The X-rays and EKG's will also be read by a Radiologist or Dock Or Pier Laborer within 24 hours. If discrepancies are noted, you will be notified by telephone. Please be certain the ED has a correct telephone number & address where you can be reached. Also, realize that some fractures or abnormalities do not show up on initial X-rays. If your symptoms continue, see your physician. ABOUT YOUR LABORATORY TEST: If you had laboratory tests, the results have been reviewed by the Emergency Physician. Some test results (for example cultures) may not be available for several days. You will be contacted if any test result shows you need additional treatment. Please be certain the ED has a correct telephone number and address where you can be reached. ABOUT YOUR MEDICATIONS: You will receive instructions on how to take your medicine on the prescription label you receive. Additional information may be provided by the Pharmacy. If you have questions afterwards, call the ED for clarification or further instructions. Some prescribed medications may cause drowsiness. Do not perform tasks such as driving a car or operating machinery without consulting your Pharmacist. If you feel you need a refill of pain medication, your condition will need re-evaluation. Please do not call for a refill of any medication. ABOUT YOUR SIGNATURE: Signature of this document acknowledges to followin. Understanding that you received emergency treatment and that you may be released before al medical problems are known or treated. Please be certain the ED has a correct phone number & address where you can be reached. 2. Acknowledgement that you will arrange for follow-up care as recommended. 3. Authorization for the Emergency Physician to provide information to your follow-up Physician in order to maximize your care. AT ANY TIME, IF YOUR SYMPTOMS CHANGE SIGNIFICANTLY OR WORSEN OR YOU DEVELOP NEW SYMPTOMS, RETURN TO THE EMERGENCY DEPARTMENT IMMEDIATELY FOR RE-EVALUATION. OUR GOAL IS TO PROVIDE EXCELLENT MEDICAL CARE! WE HOPE THAT WE HAVE MET YOUR EXPECTATIONS DURING YOUR EMERGENCY DEPARTMENT VISIT AND THAT YOU FEEL YOU HAVE RECEIVED EXCELLENT CARE! Hypoglycemia You have suffered an episode of hypoglycemia (low blood sugar). Typical symptoms of hypoglycemia are shaking, sweating, headache, and confusion. When severe, unconsciousness or seizure may occur. Hypoglycemia occurs when a person taking insulin or diabetes pills has a change in the amount of blood sugar available -- due to exercise, decreased food intake, or alcohol. Should you feel symptoms of hypoglycemia again, immediately take some form of sugar such as sweetened juice. As the reaction subsides, eat a complex carbohydrate such as bread. If possible, check your blood sugar using a chemical strip. If episodes are occurring without obvious explanation, contact your physician for further evaluation. Referrals: FATEMEH JOHNSON MD [Primary Care Provider] - Follow up as needed I personally performed the services described in the documentation, reviewed and edited the documentation which was dictated to the scribe in my presence, and it accurately records my words and actions.
--- NOTE | 2019-08-26 00:13 | EKG REPORT ---
SEVERITY:- ABNORMAL ECG - ATRIAL-PACED COMPLEXES VS SINUS RHYTHM BORDERLINE LEFT AXIS DEVIATION ANTERIOR INFARCT, OLD : Confirmed by: Bentley Hernandez 26-Aug-2019 00:13:30
[2019-08-26 00:49] LABS: APPEARANCE,URINE CLEAR; BILIRUBIN,URINE NEGATIVE (NEGATIVE); COLOR,URINE STRAW; GLUCOSE, URINE NEGATIVE (NEGATIVE); KETONES,URINE NEGATIVE (NEGATIVE); LEUKOCYTE ESTERASE,URINE NEGATIVE (NEGATIVE); NITRITE,URINE NEGATIVE (NEGATIVE); PROTEIN,URINE NEGATIVE (NEGATIVE); URINE SPECIFIC GRAVITY 1.006
[2019-08-26 02:07] VITALS: BP 98/52
== END 2019-08-26 02:20 | disposition home or self-care (01) ==
LOC: ER 22:37
DX: E10.649 Type 1 diabetes mellitus with hypoglycemia without coma (principal); I25.10 Atherosclerotic heart disease of native coronary artery without angina pectoris; Z79.4 Long term (current) use of insulin; Z95.0 Presence of cardiac pacemaker; I25.2 Old myocardial infarction
CPT/HCPCS: 36415; 71045; 80053; 81001; 82962; 83735; 84484; 85025; 93005; 93010; 99285

== ENCOUNTER → 2019-09-20 | Day surgery (SDC) | payer MEDICARE, BC ==
[~2019-09-20] MED LIST: TRIAMCINOLONE ACETONIDE INJ 40 MG/1 ML VIAL ONE
--- NOTE | 2019-09-20 14:42 | Operative Report ---
Operative Report DATE OF SURGERY: 09/20/19 PREOPERATIVE DIAGNOSIS: Right hip primary osteoarthritis POSTOPERATIVE DIAGNOSIS: Right hip primary osteoarthritis OPERATION: Fluoroscopically guided right hip injection and arthrogram SURGEON: AMNA MUNROE JR ANESTHESIA: Local COMPLICATIONS: None PROCEDURE: Patient is been having severe right hip pain that is debilitating. We discussed risks and benefits in the office and the patient agreed to proceed with a hip injection. This serves the purpose of both being diagnostic as well as therapeutic and helping to determine the source of their pain. They understood and after signing operative informed consent we proceeded with a hip injection in the hospital under fluoroscopic guidance. The patient was brought into the fluoroscopic suite and laid supine on the table. The site was marked and prepped in standard sterile fashion. A timeout was performed. Approximately 2 cc of lidocaine were utilized to anesthetize the injection site. Following this a 22-gauge spinal needle was introduced into the right hip joint and confirmed with fluoroscopy. Contrast dye was injected and found to be intracapsular. Following this 2 cc of 2% lidocaine and 2 cc of quarter percent Marcaine were injected into the hip. A sterile Band-Aid was then placed and the patient was assisted off the fluoroscopic table. They alma erated the procedure well. Patient's pain was somewhat nonspecific preinjection. He was reporting pain from his lumbar spine as well as his right knee. It was difficult to determine if his right knee pain was from his prior knee surgery or if it was associated with radicular back pain or potentially even referred pain from the hip. This injection was a diagnostic injection that we performed in order to differentiate the source of pain and determine how much is coming from his right hip. Immediately after the injection the patient reported improvement in symptoms with near complete relief of his right knee pain and radiating anterior thigh and groin pain.
== END ==
LOC: RAD 13:14
PROVIDERS: ATTEND Orthopaedic Surgery
DX: M16.11 Unilateral primary osteoarthritis, right hip (principal)
CPT/HCPCS: 20610; 77002; J3301

== ENCOUNTER 2019-12-20 18:03 | Inpatient (IN) | payer MEDICARE, BC ==
--- NOTE | 2019-12-20 18:12 | ER Document Report ---
ED General - General Chief Complaint: High Blood Sugar Stated Complaint: BLOOD SUGAR Time Seen by Provider: 12/20/19 18:07 Primary Care Provider: AMNA MUNROE JR, [Primary Care Provider] - Follow up as needed Notes: Patient with history of diabetes poorly controlled multiple admissions for high blood sugar and DKA well-known EMS for same presents with altered mental status and high sugar. is about historian patient is altered so no other information available. Blood sugar right off the chart high for the machine for EMS. He thought he was hypoxic so placed him on nasal cannula. He is unable to give any history. TRAVEL OUTSIDE OF THE [place] IN LAST 30 DAYS: No - Related Data Allergies/Adverse Reactions: No Known Allergies Allergy (Verified 02/01/19 11:20) Past Medical History - General Cannot obtain history due to: Altered mental status - Social History Smoking Status: Unknown if Ever Smoked Family History: CAD - Past Medical History Cardiac Medical History: Reports: Hx Coronary Artery Disease, Hx Heart Attack - pacemaker/defib, Hx Hypercholesterolemia, Hx Hypertension Endocrine Medical History: Reports: Hx Diabetes Mellitus Type 1 Renal/ Medical History: Reports: Hx Renal Insufficiency. 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, Hx Orthopedic Surgery - right total knee, Hx Pacemaker - Immunizations Hx Diphtheria, Pertussis, Tetanus Vaccination: No Hx Pneumococcal Vaccination: 05/22/17 Review of Systems - Review of Systems Notes: REVIEW OF SYSTEMS G altered mental status PHYSICAL EXAMINATION General: Pale and ill-appearing d Head: Atraumatic, normocephalic ENT: Mouth normal, oropharynx very dry no exudates or tonsillar enlargement Eyes: Conjunctiva normal, pupils equal, lids normal Neck: No JVD, supple, no guarding CVS: Normal rate, regular rhythm, no murmurs tachypneic with good breath sounds bilaterally no resp distress, equal and normal breath sounds bilaterally GI: Nondistended, soft, no tenderness to palpation, no rebound or guarding Ext: No deformities, no edema, normal range of motion in upper and lower ext Back: No CVA or midline TTP Skin: No rash, warm Lymphatic: No lymphadeopathy noted Neuro: Eyes closed. Lethargic but arouses to loud voice and answers one-word questions only, face symmetric follows commands in all 4 extremities. Physical Exam - Vital signs Vitals: Temp 96.9 F L 12/20/19 18:25 Course - Re-evaluation Re-evalutation: 12/20/19 19:16 Patient presents with tachycardia altered mental status and possible hypoxia although think this is artifact. His lungs are clear. His blood sugar was reading high so I am most concerned for HHS versus DKA with associated instigating factors although lack of insulin and insulin pump seems to be the answer here Given empiric fluid Labs have come back, patient is severely acidotic with DKA anion gap 25 acute kidney injury with a doubling of his creatinine and potassium of 6. His ECG shows some widening of his QRS compared to his last one, which is concerning for the effects of hyperkalemia. I have already ordered his insulin bolus and drip. I will order further fluids, calcium gluconate and I discussed his case with Dr. Ruiz from the ICU who will avoid Kayexalate and albuterol and see what happens with his potassium on the insulin drip. He is agreed to admit the patient to the ICU. Pending urine. - Vital Signs Vital signs: Temp Pulse Resp BP Pulse Ox 96.9 F L 12/20/19 18:25 - Laboratory Result Diagrams: 12/20/19 18:15 12/20/19 18:15 Laboratory results interpreted by me: 12/20/19 12/20/19 18:15 18:15 VBG pH 7.15 L* VBG HCO3 12.8 L Sodium 129.1 L Potassium 6.0 H* Chloride 94 L Carbon Dioxide 10 L* Anion Gap 25 H BUN 86 H Creatinine 2.30 H Est GFR ( Amer) 33 L Est GFR (MDRD) Non-Af 28 L Glucose 870 H* Calcium 8.0 L Critical Care Note - Critical Care Note Total time excluding time spent on procedures (mins): 34 Comments: The above patient is critically ill. Not including procedures, but including direct re-evaluations, speaking with patient and/or consultants, interpreting results, and documenting, I spent the total amount of minute listed listed above on critical care time Discharge - Discharge Clinical Impression: Diabetic ketoacidosis Qualifiers: Diabetes mellitus type: type 2 Diabetes mellitus complication detail: with coma Qualified Code(s): E11.11 - Type 2 diabetes mellitus with ketoacidosis with coma Condition: Critical Disposition: ADMITTED INPATIENT Admitting Provider: Margie (Senior Software Development Engineer) Unit Admitted: ICU Referrals: AMNA MUNROE JR, [Primary Care Provider] - Follow up as needed
[2019-12-20 18:33] LABS: VENOUS BLOOD BASE EXCESS -15.2 mmol/L; VENOUS BLOOD HCO3 12.8 mmol/L (20-32); VENOUS BLOOD PCO2 37.2 mmHg (35-63)
[2019-12-20 18:36] LABS: VENOUS BLOOD PH 7.15 (7.30-7.42)
[2019-12-20] MEDS ORDERED: RINGERS SOLUTION,LACTATED 1,000 ML IV ONE (18:38)
[2019-12-20 18:43] LABS: HEMATOCRIT 43.7 % (37.9-51.0); HEMOGLOBIN 13.7 g/dL (13.5-17.0); MEAN CORPUSCULAR HEMOGLOBIN 32.4 pg (27.0-33.4); MEAN CORPUSCULAR HGB CONC 31.4 g/dL (32.0-36.0); MEAN CORPUSCULAR VOLUME 103 fl (80-97); PLATELET COUNT 137 10^3/uL (150-450); RED BLOOD COUNT 4.24 10^6/uL (4.35-5.55); RED CELL DISTRIBUTION WIDTH 15.2 % (11.5-14.0); WHITE BLOOD COUNT 9.7 10^3/uL (4.0-10.5)
[2019-12-20 18:50] LABS: BLOOD UREA NITROGEN 86 mg/dL (7-20)
--- NOTE | 2019-12-20 18:50 | RADIOLOGY REPORT (SQ) ---
EXAM DESCRIPTION: CHEST SINGLE VIEW IMAGES COMPLETED DATE/TIME: 12/20/2019 6:29 pm REASON FOR STUDY: hypoxia COMPARISON: None. EXAM PARAMETERS: NUMBER OF VIEWS: One view. TECHNIQUE: Single frontal radiographic view of the chest acquired. RADIATION DOSE: NA LIMITATIONS: None. FINDINGS: LUNGS AND PLEURA: No opacities, masses or pneumothorax. No pleural effusion. MEDIASTINUM AND HILAR STRUCTURES: No masses. Contour normal. HEART AND VASCULAR STRUCTURES: Heart normal in size. Normal vasculature. BONES: No acute findings. HARDWARE: Sternotomy wires. Pacemaker/ defibrillator. OTHER: No other significant finding. IMPRESSION: NO ACUTE RADIOGRAPHIC FINDING IN THE CHEST. TECHNICAL DOCUMENTATION: JOB ID: [id number] 2010 [employer]- All Rights Reserved Reading location - IP/workstation name: [email or web address]
[2019-12-20 18:56] LABS: CHLORIDE 94 mmol/L (98-107)
[2019-12-20 19:00] LABS: ANION GAP 25 (5-19)
[2019-12-20 19:01] LABS: GLUCOSE 870 mg/dL (75-110)
[2019-12-20 19:02] LABS: CARBON DIOXIDE 10 mmol/L (22-30)
[2019-12-20] MEDS ORDERED: DEXTROSE 50%-WATER 25 GM/50 ML DISP.SYRIN IV PRN ×2 (19:02)
[2019-12-20] MEDS ORDERED: GLUCAGON,HUMAN RECOMB 1 MG INJ IM PRN (19:02)
[2019-12-20] MEDS ORDERED: DEXTROSE 40% GEL 15 GM TUBE PO PRN ×2 (19:02)
[2019-12-20] MEDS ORDERED: INSULIN REG, HUMAN 100 UNIT/ML 3 ML VIAL (PYX) IV ONE (19:04)
[2019-12-20] MEDS ORDERED: CALCIUM GLUCONATE 1000 MG/10 ML INJ IV ONE (19:12)
[2019-12-20 19:20] LABS: ABSOLUTE LYMPHOCYTES# (MANUAL) 0.7 10^3/uL (0.5-4.7); ABSOLUTE MONOCYTES # (MANUAL) 0.3 10^3/uL (0.1-1.4); BASOPHILS % (MANUAL) 0 % (0-2); EOSINOPHILS % (MANUAL) 0 % (0-6); LYMPHOCYTES % (MANUAL) 7 % (13-45); MONOCYTES % (MANUAL) 3 % (3-13); PLATELET COMMENT DECREASED; SEGMENTED NEUTROPHILS % (MAN) 90 % (42-78); TOTAL CELLS COUNTED 100
[2019-12-20 19:21] LABS: ANISOCYTOSIS SLIGHT
[2019-12-20 19:22] LABS: OVALOCYTES SLIGHT; SCHISTOCYTES SLIGHT
[2019-12-20] MEDS ORDERED: INSULIN REG, HUMAN 100 UNIT/ML 3 ML VIAL (PYX) ONE (19:44)
[2019-12-20] MEDS: NORMAL SALINE 100 ML with INSULIN REGULAR, HUMAN 100 UNIT IV PRN ×2 (19:47)
[2019-12-20 20:01] LABS: APPEARANCE,URINE CLEAR; BILIRUBIN,URINE NEGATIVE (NEGATIVE); COLOR,URINE YELLOW; GLUCOSE, URINE >=500 mg/dL (NEGATIVE); KETONES,URINE TRACE mg/dL (NEGATIVE); LEUKOCYTE ESTERASE,URINE NEGATIVE (NEGATIVE); NITRITE,URINE NEGATIVE (NEGATIVE); PROTEIN,URINE NEGATIVE (NEGATIVE); URINE SPECIFIC GRAVITY 1.018; UROBILINOGEN,URINE NEGATIVE mg/dL (<2.0)
[2019-12-20] MEDS ORDERED: HEPARIN SOD (PORCINE) 5,000 UNIT/ML 1 ML VIAL SUBCUT SCH (22:00)
[2019-12-20 22:03] LABS: BLOOD UREA NITROGEN 91 mg/dL (7-20); CALCIUM 8.3 mg/dL (8.4-10.2); POTASSIUM 5.3 mmol/L (3.6-5.0)
[2019-12-20 22:23] LABS: CHLORIDE 97 mmol/L (98-107)
[2019-12-20 22:24] LABS: ANION GAP 25 (5-19)
[2019-12-20 22:25] LABS: CARBON DIOXIDE 8 mmol/L (22-30)
[2019-12-20 22:26] LABS: GLUCOSE 796 mg/dL (75-110)
--- NOTE | 2019-12-20 23:01 | EKG REPORT ---
SEVERITY:- ABNORMAL ECG - ATRIAL-PACED COMPLEXES FIRST DEGREE AV BLOCK NONSPECIFIC IVCD WITH LAD CONSIDER ANTEROSEPTAL INFARCT : Confirmed by: Mary Kay Pizarro MD 20-Dec-2019 23:00:26
[2019-12-20] MEDS ORDERED: NORMAL SALINE 1000 ML 1,000 ML IV PRN (23:53)
[2019-12-21 01:19] LABS: ANION GAP 18 (5-19); BLOOD UREA NITROGEN 97 mg/dL (7-20); CALCIUM 7.9 mg/dL (8.4-10.2); CARBON DIOXIDE 13 mmol/L (22-30); CHLORIDE 99 mmol/L (98-107); POTASSIUM 4.6 mmol/L (3.6-5.0)
[2019-12-21 01:39] LABS: GLUCOSE 687 mg/dL (75-110)
[2019-12-21] MEDS ORDERED: INSULIN REG, HUMAN 100 UNIT/ML 3 ML VIAL (PYX) ONE ×2 (02:52→06:26)
[2019-12-21 03:43] LABS: ABSOLUTE LYMPHOCYTES (AUTO) 0.5 10^3/uL (0.5-4.7); ABSOLUTE MONOCYTES (AUTO) 0.6 10^3/uL (0.1-1.4); ABSOLUTE NEUT (AUTO) 7.8 10^3/uL (1.7-8.2); BASOPHILS % (AUTO) 0.1 % (0-2); EOSINOPHILS % (AUTO) 0.3 % (0-6); LYMPHOCYTES % (AUTO) 5.8 % (13-45); MEAN CORPUSCULAR HEMOGLOBIN 32.6 pg (27.0-33.4); MONOCYTES % (AUTO) 7.1 % (3-13); PLATELET COUNT 100 10^3/uL (150-450); RED BLOOD COUNT 3.44 10^6/uL (4.35-5.55); RED CELL DISTRIBUTION WIDTH 14.2 % (11.5-14.0); SEGMENTED NEUTROPHILS % (AUTO) 86.7 % (42-78); TOTAL CELLS COUNTED % (AUTO) 100 %
[2019-12-21 03:45] LABS: HEMOGLOBIN 11.2 g/dL (13.5-17.0); MEAN CORPUSCULAR VOLUME 96 fl (80-97)
[2019-12-21 03:51] LABS: PHOSPHORUS 4.7 mg/dL (2.5-4.5)
[2019-12-21 03:56] LABS: ALKALINE PHOSPHATASE 80 U/L (38-126); ANION GAP 14 (5-19); ASPARTATE AMINO TRANSFERASE 25 U/L (17-59); BILIRUBIN,DIRECT 0.1 mg/dL (0.0-0.4); BILIRUBIN,TOTAL 0.7 mg/dL (0.2-1.3); BLOOD UREA NITROGEN 97 mg/dL (7-20); CALCIUM 8.5 mg/dL (8.4-10.2); CARBON DIOXIDE 19 mmol/L (22-30); CHLORIDE 98 mmol/L (98-107); POTASSIUM 4.7 mmol/L (3.6-5.0); TOTAL PROTEIN 5.3 g/dL (6.3-8.2)
[2019-12-21] MEDS: NORMAL SALINE 100 ML with INSULIN REGULAR, HUMAN 100 UNIT IV PRN ×4 (04:00→06:32)
[2019-12-21 04:04] LABS: GLUCOSE 580 mg/dL (75-110)
[2019-12-21 04:13] LABS: FREE T3 0.98 pg/mL (2.77-5.27); FREE T4 (FREE THYROXINE) 1.02 ng/dL (0.78-2.19)
[2019-12-21 04:26] LABS: THYROID STIMULATING HORMONE 0.79 uIU/mL (0.47-4.68)
[2019-12-21] MEDS: NORMAL SALINE 1000 ML 1,000 ML IV PRN ×3 (04:45→20:01)
--- NOTE | 2019-12-21 06:10 | CRITICAL CARE ADMISSION REPORT ---
<EDEL NIETO Monique - Last Filed: 12/21/19 05:58> HPI Date:: 12/20/19 Time:: 20:00 Reason for ICU Reason:: DKA Admission Date/Time & PCP: Admission Date/Time: 12/20/19 20:20 Primary Care Provider: AMNA MUNROE JR, DO HPI: Mr. Arroyo is a 79-year-old male with a history of early controlled diabetes, multiple admissions for DKA. 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 Presented to the ED with altered mental status and tachycardia. His blood glucose on arrival to the ED was 870 with anion gap 25, creatinine 2.3 baseline in August 2019 was 0.88. He had a potassium of 6.0. His EKG showed widening of his QRS compared to his previous EKG. He received 10 units of insulin bolus 1 amp of calcium gluconate 2 L LR and started on insulin drip. He is admitted to the ICU for further management - Diagnosis/Plan (1) DKA (diabetic ketoacidoses) Qualifiers: Diabetes mellitus type: type 2 Diabetes mellitus complication detail: with coma Qualified Code(s): E11.11 - Type 2 diabetes mellitus with ketoacidosis with coma Is this a current diagnosis for this admission?: Yes Plan: Poorly controlled diabetes Continue insulin drip per protocol every hour blood sugar BMP every 4 hours volume resuscitate with normal saline Blood sugar reaches 250 will change fluids to half-normal saline with 20 of K (2) Acute kidney injury Is this a current diagnosis for this admission?: Yes Plan: Most likely prerenal from dehydration Volume resuscitate BMP every 4 hours Monitor urine output Does have history of right nephrectomy Creatinine 09/09/2019 0.88 (3) Altered mental state Qualifiers: Altered mental status type: unspecified Qualified Code(s): R41.82 - Altered mental status, unspecified Is this a current diagnosis for this admission?: Yes Plan: Most likely secondary to hyperglycemia Per her son does have a history of dementia Past Medical History Cardiac Medical History: Reports: Coronary Artery Disease, Myocardial Infarction - pacemaker/defib, Hyperlipidema, Hypertension Endocrine Medical History: Reports: Diabetes Mellitus Type 1 Musculoskeltal Medical History: Reports: Arthritis Psychiatric Medical History: Denies: Depression Past Surgical History Past Surgical History: Reports: Coronary Artery Bypass Graft - x4, Orthopedic Surgery - right total knee, Pacemaker Social/Family History - Social History Smoking Status: Unknown if Ever Smoked Frequency of Alcohol Use: Occasional Hx Recreational Drug Use: No Drugs: None Hx Prescription Drug Abuse: No - Medication/Allergies Home Medications: Losartan Potassium [Cozaar 100 mg Tablet] 100 mg PO DAILY 02/01/19 Potassium Chloride [Klor-Con M10] 10 meq PO DAILY 02/01/19 Tamsulosin HCl [Flomax 0.4 mg Cap.sr] 0.4 mg PO PCSUPPER 02/01/19 Rosuvastatin Calcium [Crestor 20 mg Tablet] 20 mg PO QHS 03/15/19 Furosemide [Lasix 20 mg Tablet] 20 mg PO QAMP PRN 06/07/19 Insulin Glargine,Hum.rec.anlog [Lantus Insulin 100 Unit/1 ml 10 ml] 20 unit SUBCUT DAILY 12/21/19 Insulin Lispro [Humalog Insulin 100 Unit/1 ml 3 ml Vial] 0 unit SUBCUT .PUMP 12/21/19 Rivaroxaban [Xarelto] 20 mg PO DAILY 12/21/19 Torsemide [Demadex 20 mg Tablet] 20 mg PO DAILY 12/21/19 Allergies/Adverse Reactions: No Known Allergies Allergy (Verified 02/01/19 11:20) Review of Systems ROS unobtainable: Due to mental status Physical Exam Vital Signs: Temp Pulse Resp BP Pulse Ox 97.7 F 96 17 144/59 H 100 12/21/19 03:32 12/20/19 22:00 12/21/19 03:32 12/21/19 03:32 12/21/19 03:32 Intake & Output 12/19/19 12/20/19 12/21/19 06:59 06:59 06:59 Intake Total 1822 Output Total 540 Balance 1282 Weight 87.8 kg Weight/Height Weight 87.8 kg Height 5 ft 10 in General appearance: PRESENT: no acute distress Eye exam: PRESENT: PERRLA Mouth exam: PRESENT: dry mucosa Neck exam: PRESENT: full ROM Respiratory exam: PRESENT: decreased breath sounds Cardiovascular exam: PRESENT: RRR, +S1, +S2 Pulses: PRESENT: normal radial pulses GI/Abdominal exam: PRESENT: normal bowel sounds Extremities exam: PRESENT: full ROM Musculoskeletal exam: PRESENT: full ROM Neurological exam: PRESENT: altered Laboratory/Radiographs Laboratory Results: 12/21/19 03:15 12/21/19 03:15 12/20/19 12/20/19 12/20/19 18:15 18:15 18:15 WBC 9.7 RBC 4.24 L Hgb 13.7 Hct 43.7 MCV 103 H MCH 32.4 MCHC 31.4 L RDW 15.2 H Plt Count 137 L Seg Neutrophils % Not Reportable VBG pH 7.15 L* VBG pCO2 37.2 VBG HCO3 12.8 L VBG Base Excess -15.2 Sodium 129.1 L Potassium 6.0 H* Chloride 94 L Carbon Dioxide 10 L* Anion Gap 25 H BUN 86 H Creatinine 2.30 H Est GFR ( Amer) 33 L Est GFR (Non-Af Amer) Glucose 870 H* Calcium 8.0 L Phosphorus Magnesium Total Bilirubin AST Alkaline Phosphatase Total Protein Albumin TSH Free T4 Free T3 pg/mL Urine Color Urine Appearance Urine pH Ur Specific [place] Urine Protein Urine Glucose (UA) Urine Ketones Urine Blood Urine Nitrite Ur Leukocyte Esterase Urine WBC (Auto) Urine RBC (Auto) 12/20/19 12/20/19 12/21/19 19:39 21:40 00:45 WBC RBC Hgb Hct MCV MCH MCHC RDW Plt Count Seg Neutrophils % VBG pH VBG pCO2 VBG HCO3 VBG Base Excess Sodium 129.5 L 130.2 L Potassium 5.3 H 4.6 Chloride 97 L 99 Carbon Dioxide 8 L* 13 L Anion Gap 25 H 18 BUN 91 H 97 H Creatinine 2.52 H 2.36 H Est GFR ( Amer) 30 L 32 L Est GFR (Non-Af Amer) Glucose 796 H* 687 H* Calcium 8.3 L 7.9 L Phosphorus Magnesium Total Bilirubin AST Alkaline Phosphatase Total Protein Albumin TSH Free T4 Free T3 pg/mL Urine Color YELLOW Urine Appearance CLEAR Urine pH 5.0 Ur Specific [place] 1.018 Urine Protein NEGATIVE Urine Glucose (UA) >=500 H Urine Ketones TRACE H Urine Blood NEGATIVE Urine Nitrite NEGATIVE Ur Leukocyte Esterase NEGATIVE Urine WBC (Auto) 2 Urine RBC (Auto) 0 12/21/19 12/21/19 12/21/19 03:15 03:15 03:15 WBC 9.0 RBC 3.44 L Hgb 11.2 L D Hct 33.0 L MCV 96 D MCH 32.6 MCHC 34.0 RDW 14.2 H Plt Count 100 L Seg Neutrophils % 86.7 H VBG pH VBG pCO2 VBG HCO3 VBG Base Excess Sodium Cancelled Potassium Cancelled Chloride Cancelled Carbon Dioxide Cancelled Anion Gap Cancelled BUN Cancelled Creatinine Cancelled Est GFR ( Amer) Cancelled Est GFR (Non-Af Amer) Cancelled Glucose Cancelled Calcium Cancelled Phosphorus 4.7 H Magnesium 2.6 H Total Bilirubin AST Alkaline Phosphatase Total Protein Albumin TSH 0.79 Free T4 1.02 Free T3 pg/mL 0.98 L Urine Color Urine Appearance Urine pH Ur Specific [place] Urine Protein Urine Glucose (UA) Urine Ketones Urine Blood Urine Nitrite Ur Leukocyte Esterase Urine WBC (Auto) Urine RBC (Auto) 12/21/19 03:15 WBC RBC Hgb Hct MCV MCH MCHC RDW Plt Count Seg Neutrophils % VBG pH VBG pCO2 VBG HCO3 VBG Base Excess Sodium 131.1 L Potassium 4.7 Chloride 98 Carbon Dioxide 19 L Anion Gap 14 BUN 97 H Creatinine 2.44 H Est GFR ( Amer) 31 L Est GFR (Non-Af Amer) Glucose 580 H* Calcium 8.5 Phosphorus Magnesium Total Bilirubin 0.7 AST 25 Alkaline Phosphatase 80 Total Protein 5.3 L Albumin 3.0 L TSH Free T4 Free T3 pg/mL Urine Color Urine Appearance Urine pH Ur Specific [place] Urine Protein Urine Glucose (UA) Urine Ketones Urine Blood Urine Nitrite Ur Leukocyte Esterase Urine WBC (Auto) Urine RBC (Auto) Impressions: Chest X-Ray 12/20/19 18:10 IMPRESSION: NO ACUTE RADIOGRAPHIC FINDING IN THE CHEST. All labs, radiographs, diagnostic studies and EKGs were personally reviewed: Yes In addition, reports of radiographic and diagnostic studies were read: Yes Critical Time Critical Time (minutes): 60 -: The care of a critically ill patient is dynamic. This note represents a static moment in the admission process. Orders and treatments may be given simultaneously and urgently, and time is not technical service representative of the treatment process. This patient requires Critical Care secondary to life threatening organ or limb dysfunction. Without Critical Care services, the patient is at risk for increased mortality and morbidity. <TYLER JUAREZ - Last Filed: 01/02/20 10:44> HPI Admission Date/Time & PCP: Admission Date/Time: 12/20/19 20:20 Primary Care Provider: AMNA MUNROE JR, DO Plan Summary: I was available for discussion and back up coverage for [facility]IA[facility] Linda. Physical Exam Vital Signs: Temp Pulse Resp BP Pulse Ox 97.4 F 94 18 115/73 95 01/02/20 07:53 01/02/20 07:53 01/02/20 07:53 01/02/20 07:53 01/02/20 07:53 Intake & Output 01/01/20 01/02/20 01/03/20 06:59 06:59 06:59 Intake Total 100 360 Output Total 1650 1560 Balance -1550 -1200 Weight 84 kg 82 kg Weight/Height Weight 82 kg Height 5 ft 10 in Laboratory/Radiographs Laboratory Results: 01/02/20 08:27 01/02/20 05:10 01/02/20 01/02/20 01/02/20 05:10 05:10 08:27 WBC Cancelled 7.6 RBC Cancelled 3.67 L Hgb Cancelled 12.0 L Hct Cancelled 35.3 L MCV Cancelled 96 MCH Cancelled 32.7 MCHC Cancelled 34.0 RDW Cancelled 14.6 H Plt Count Cancelled 186 Seg Neutrophils % Cancelled 89.3 H Sodium 131.8 L Potassium 4.6 Chloride 99 Carbon Dioxide 30 Anion Gap 3 L BUN 37 H Creatinine 1.15 Est GFR ( Amer) > 60 Glucose 168 H Calcium 8.1 L Magnesium 2.2 Total Bilirubin 0.6 AST 25 Alkaline Phosphatase 57 Total Protein 4.5 L Albumin 2.3 L Impressions: Chest X-Ray 12/20/19 18:10 IMPRESSION: NO ACUTE RADIOGRAPHIC FINDING IN THE CHEST. Head CT 12/22/19 00:00 IMPRESSION: CHRONIC CHANGES OF ATROPHY AND MICROVASCULAR ISCHEMIA. NO ACUTE PROCESS. EVIDENCE OF ACUTE STROKE: NO. Critical Time -: The care of a critically ill patient is dynamic. This note represents a static moment in the admission process. Orders and treatments may be given simultaneously and urgently, and time is not technical service representative of the treatment process. This patient requires Critical Care secondary to life threatening organ or limb dysfunction. Without Critical Care services, the patient is at risk for increased mortality and morbidity.
[2019-12-21] MEDS ORDERED: DEXTROSE 50%-WATER 25 GM/50 ML DISP.SYRIN IV PRN ×6 (08:26→16:11)
[2019-12-21] MEDS ORDERED: DEXTROSE 40% GEL 15 GM TUBE PO PRN ×6 (08:26→16:11)
[2019-12-21] MEDS ORDERED: GLUCAGON,HUMAN RECOMB 1 MG INJ IM PRN ×3 (08:26→16:11)
--- NOTE | 2019-12-21 08:46 | PDOC CRITICAL CARE PROG REPORT ---
General Date:: 12/21/19 ICU Day:: 1 Hospital Day:: 1 Resuscitation Status: Full Code Events in the past 12 to 24 Hours:: Lower blood sugar, gap closed. Review of systems relevant to events:: Endocrine Reason for ICU Addmission:: DKA, now improved. - Medications: Medications reviewed and adjusted accordingly: Yes Vasopressors:: None Sedation:: None Physical Exam Vital Signs: Temp Pulse Resp BP Pulse Ox 97.5 F 80 16 135/68 H 98 12/21/19 08:00 12/21/19 08:00 12/21/19 08:00 12/21/19 08:00 12/21/19 08:00 Intake & Output 12/20/19 12/21/19 12/22/19 06:59 06:59 06:59 Intake Total 1879 49 Output Total 540 500 Balance 1339 -451 Weight 87.8 kg Weight/Height Weight 87.8 kg Height 5 ft 10 in General appearance: PRESENT: no acute distress Head exam: PRESENT: atraumatic, normocephalic Eye exam: PRESENT: conjunctiva pink, EOMI, PERRLA. ABSENT: scleral icterus Ear exam: PRESENT: normal external ear exam Mouth exam: PRESENT: moist, tongue midline Respiratory exam: PRESENT: clear to auscultation malcom. ABSENT: rales, rhonchi, wheezes Cardiovascular exam: PRESENT: RRR. ABSENT: diastolic murmur, rubs, systolic murmur GI/Abdominal exam: PRESENT: normal bowel sounds, soft. ABSENT: distended, guarding, mass, organolmegaly, rebound, tenderness Rectal exam: PRESENT: deferred Gentrourinary exam: PRESENT: indwelling catheter Extremities exam: PRESENT: full ROM. ABSENT: calf tenderness, clubbing, pedal edema Musculoskeletal exam: PRESENT: normal inspection Neurological exam: PRESENT: alert Skin exam: PRESENT: dry, intact, warm. ABSENT: cyanosis, rash Laboratory/Radiographs Laboratory Results: 12/21/19 03:15 12/21/19 03:15 12/20/19 12/20/19 12/20/19 18:15 18:15 18:15 WBC 9.7 RBC 4.24 L Hgb 13.7 Hct 43.7 MCV 103 H MCH 32.4 MCHC 31.4 L RDW 15.2 H Plt Count 137 L Seg Neutrophils % Not Reportable VBG pH 7.15 L* VBG pCO2 37.2 VBG HCO3 12.8 L VBG Base Excess -15.2 Sodium 129.1 L Potassium 6.0 H* Chloride 94 L Carbon Dioxide 10 L* Anion Gap 25 H BUN 86 H Creatinine 2.30 H Est GFR ( Amer) 33 L Est GFR (Non-Af Amer) Glucose 870 H* Calcium 8.0 L Phosphorus Magnesium Total Bilirubin AST Alkaline Phosphatase Total Protein Albumin TSH Free T4 Free T3 pg/mL Urine Color Urine Appearance Urine pH Ur Specific [place] Urine Protein Urine Glucose (UA) Urine Ketones Urine Blood Urine Nitrite Ur Leukocyte Esterase Urine WBC (Auto) Urine RBC (Auto) 12/20/19 12/20/19 12/21/19 19:39 21:40 00:45 WBC RBC Hgb Hct MCV MCH MCHC RDW Plt Count Seg Neutrophils % VBG pH VBG pCO2 VBG HCO3 VBG Base Excess Sodium 129.5 L 130.2 L Potassium 5.3 H 4.6 Chloride 97 L 99 Carbon Dioxide 8 L* 13 L Anion Gap 25 H 18 BUN 91 H 97 H Creatinine 2.52 H 2.36 H Est GFR ( Amer) 30 L 32 L Est GFR (Non-Af Amer) Glucose 796 H* 687 H* Calcium 8.3 L 7.9 L Phosphorus Magnesium Total Bilirubin AST Alkaline Phosphatase Total Protein Albumin TSH Free T4 Free T3 pg/mL Urine Color YELLOW Urine Appearance CLEAR Urine pH 5.0 Ur Specific [place] 1.018 Urine Protein NEGATIVE Urine Glucose (UA) >=500 H Urine Ketones TRACE H Urine Blood NEGATIVE Urine Nitrite NEGATIVE Ur Leukocyte Esterase NEGATIVE Urine WBC (Auto) 2 Urine RBC (Auto) 0 12/21/19 12/21/19 12/21/19 03:15 03:15 03:15 WBC 9.0 RBC 3.44 L Hgb 11.2 L D Hct 33.0 L MCV 96 D MCH 32.6 MCHC 34.0 RDW 14.2 H Plt Count 100 L Seg Neutrophils % 86.7 H VBG pH VBG pCO2 VBG HCO3 VBG Base Excess Sodium Cancelled Potassium Cancelled Chloride Cancelled Carbon Dioxide Cancelled Anion Gap Cancelled BUN Cancelled Creatinine Cancelled Est GFR ( Amer) Cancelled Est GFR (Non-Af Amer) Cancelled Glucose Cancelled Calcium Cancelled Phosphorus 4.7 H Magnesium 2.6 H Total Bilirubin AST Alkaline Phosphatase Total Protein Albumin TSH 0.79 Free T4 1.02 Free T3 pg/mL 0.98 L Urine Color Urine Appearance Urine pH Ur Specific [place] Urine Protein Urine Glucose (UA) Urine Ketones Urine Blood Urine Nitrite Ur Leukocyte Esterase Urine WBC (Auto) Urine RBC (Auto) 12/21/19 03:15 WBC RBC Hgb Hct MCV MCH MCHC RDW Plt Count Seg Neutrophils % VBG pH VBG pCO2 VBG HCO3 VBG Base Excess Sodium 131.1 L Potassium 4.7 Chloride 98 Carbon Dioxide 19 L Anion Gap 14 BUN 97 H Creatinine 2.44 H Est GFR ( Amer) 31 L Est GFR (Non-Af Amer) Glucose 580 H* Calcium 8.5 Phosphorus Magnesium Total Bilirubin 0.7 AST 25 Alkaline Phosphatase 80 Total Protein 5.3 L Albumin 3.0 L TSH Free T4 Free T3 pg/mL Urine Color Urine Appearance Urine pH Ur Specific [place] Urine Protein Urine Glucose (UA) Urine Ketones Urine Blood Urine Nitrite Ur Leukocyte Esterase Urine WBC (Auto) Urine RBC (Auto) Impressions: Chest X-Ray 12/20/19 18:10 IMPRESSION: NO ACUTE RADIOGRAPHIC FINDING IN THE CHEST. All labs, radiographs, diagnostic studies and EKGs were personally reviewed: Yes In addition, reports of radiographic and diagnostic studies were read: Yes Assessment and Plan - Diagnosis (1) DKA (diabetic ketoacidoses) Qualifiers: Diabetes mellitus type: type 2 Diabetes mellitus complication detail: with coma Qualified Code(s): E11.11 - Type 2 diabetes mellitus with ketoacidosis with coma Is this a current diagnosis for this admission?: Yes (2) CAD (coronary artery disease) Qualifiers: Coronary Disease-Associated Artery/Lesion type: unspecified vessel or lesion type Associated angina: without angina Is this a current diagnosis for this admission?: Yes Plan: Inactive (3) Diastolic CHF Qualifiers: Heart failure chronicity: chronic Qualified Code(s): I50.32 - Chronic diastolic (congestive) heart failure Is this a current diagnosis for this admission?: Yes Plan: Currently inactive Plan Summary: Plan to downgrade to [facility] today. Critical Time Critical Time (minutes): 35 Level of Care: ICU Anticipated discharge: Home with Homehealth Anticipated DC Timeframe: within 48 hours -: 1. The care of a critical patient is a dynamic process. This note is a public relations representative synopsis but static in nature. The timeframe for treatments given in order is not necessarily the actual time these treatments may have been done. 2. This patient requires critical care secondary to ongoing requirements for therapy not offered or safe outside the critical care environment. Transfer to a lower level of care will result in altered life or limb morbidity and mortality. 3. Multidisciplinary rounds completed. 4. ABCDE bundle addressed.
[2019-12-21] MEDS ORDERED: NORMAL SALINE 100 ML with INSULIN REGULAR, HUMAN 100 UNIT IV PRN ×2 (10:01)
[2019-12-21 10:10] LABS: ANION GAP 7 (5-19); BLOOD UREA NITROGEN 91 mg/dL (7-20); CALCIUM 8.9 mg/dL (8.4-10.2); CARBON DIOXIDE 23 mmol/L (22-30); CHLORIDE 105 mmol/L (98-107); GLUCOSE 149 mg/dL (75-110)
[2019-12-21] MEDS ORDERED: DEXTROSE 5%-1/2 NORMAL SALINE 1,000 ML IV PRN (10:44)
[2019-12-21] MEDS ORDERED: INSULIN GLARGINE,HUM.REC.ANLOG 1,000 UNIT/10 ML VIAL (PYX) SUBCUT ONE (11:00)
[2019-12-21 16:06] LABS: ANION GAP 6 (5-19); BLOOD UREA NITROGEN 80 mg/dL (7-20); CALCIUM 8.6 mg/dL (8.4-10.2); CARBON DIOXIDE 23 mmol/L (22-30); CHLORIDE 106 mmol/L (98-107); GLUCOSE 142 mg/dL (75-110); POTASSIUM 4.2 mmol/L (3.6-5.0)
[2019-12-21] MEDS: INSULIN REG, HUMAN 100 UNIT/ML 3 ML VIAL (PYX) SUBCUT SCH (17:32)
[2019-12-21] MEDS ORDERED: NORMAL SALINE 1000 ML 1,000 ML IV PRN (18:23)
[2019-12-21] MEDS ORDERED: FUROSEMIDE 20 MG TABLET PO PRN (18:23)
[2019-12-21 21:32] LABS: ANION GAP 10 (5-19); BLOOD UREA NITROGEN 77 mg/dL (7-20); CALCIUM 8.8 mg/dL (8.4-10.2); CARBON DIOXIDE 21 mmol/L (22-30); CHLORIDE 105 mmol/L (98-107); GLUCOSE 228 mg/dL (75-110); POTASSIUM 4.5 mmol/L (3.6-5.0)
[2019-12-21] MEDS: ATORVASTATIN CALCIUM 40 MG TABLET PO SCH (21:50)
[2019-12-21] MEDS ORDERED: (PENDING PHARMACY ID) (Rosuvastatin Calcium [Crestor 20 Mg Tablet] 20 MG) PO SCH (22:00)
[2019-12-21] MEDS ORDERED: INSULIN GLARGINE,HUM.REC.ANLOG 1,000 UNIT/10 ML VIAL SUBCUT SCH (22:00)
[2019-12-22] MEDS: INSULIN REG, HUMAN 100 UNIT/ML 3 ML VIAL (PYX) SUBCUT SCH ×2 (00:11→06:33)
[2019-12-22 06:14] LABS: ABSOLUTE LYMPHOCYTES (AUTO) 0.7 10^3/uL (0.5-4.7); ABSOLUTE MONOCYTES (AUTO) 0.6 10^3/uL (0.1-1.4); ABSOLUTE NEUT (AUTO) 5.5 10^3/uL (1.7-8.2); BASOPHILS % (AUTO) 0.2 % (0-2); EOSINOPHILS % (AUTO) 0.1 % (0-6); HEMATOCRIT 41.4 % (37.9-51.0); LYMPHOCYTES % (AUTO) 10.4 % (13-45); MEAN CORPUSCULAR HEMOGLOBIN 32.1 pg (27.0-33.4); MEAN CORPUSCULAR HGB CONC 34.1 g/dL (32.0-36.0); MEAN CORPUSCULAR VOLUME 94 fl (80-97); MONOCYTES % (AUTO) 9.4 % (3-13); RED BLOOD COUNT 4.39 10^6/uL (4.35-5.55); RED CELL DISTRIBUTION WIDTH 14.2 % (11.5-14.0); SEGMENTED NEUTROPHILS % (AUTO) 79.9 % (42-78); TOTAL CELLS COUNTED % (AUTO) 100 %; WHITE BLOOD COUNT 6.8 10^3/uL (4.0-10.5)
[2019-12-22 06:27] LABS: ANION GAP 9 (5-19); BLOOD UREA NITROGEN 69 mg/dL (7-20); CALCIUM 8.5 mg/dL (8.4-10.2); CARBON DIOXIDE 21 mmol/L (22-30); CHLORIDE 106 mmol/L (98-107); GLUCOSE 327 mg/dL (75-110); PHOSPHORUS 3.2 mg/dL (2.5-4.5); POTASSIUM 4.9 mmol/L (3.6-5.0)
[2019-12-22 06:33] LABS: HEMOGLOBIN 14.1 g/dL (13.5-17.0); PLATELET COUNT 93 10^3/uL (150-450)
[2019-12-22] MEDS: INSULIN LISPRO 100 UNIT/ML 3 ML VIAL SUBCUT SCH ×4 (08:38→21:22)
[2019-12-22] MEDS ORDERED: INSULIN GLARGINE,HUM.REC.ANLOG 1,000 UNIT/10 ML VIAL SUBCUT SCH ×2 (10:00)
[2019-12-22] MEDS: TORSEMIDE 20 MG TABLET PO SCH (10:30)
[2019-12-22] MEDS: RIVAROXABAN 10 MG TABLET PO SCH (10:30)
[2019-12-22] MEDS: POTASSIUM CHLORIDE 10 MEQ TABLET.ER PO SCH (10:30)
[2019-12-22] MEDS: LOSARTAN POTASSIUM 50 MG TABLET PO SCH (10:30)
[2019-12-22] MEDS: NORMAL SALINE 1000 ML 1,000 ML IV PRN (10:38)
--- NOTE | 2019-12-22 10:46 | PDOC PROGRESS REPORT ---
Subjective Progress Note for:: 12/22/19 Subjective:: Mr. Arroyo is a 79-year-old male with a history of CAD status post CABG x4, CHF, right nephrectomy, ureteral carcinoma, dementia, who was admitted to ICU for DKA. DKA has resolved and patient transferred to floor for further management. 12/22/2019. No acute events overnight. Saw patient this morning, currently resting in bed in no apparent distress, alert and oriented x1, pleasantly confused, no baseline available, cooperative with physical examination, denies any fever, chills, nausea, vomiting, diarrhea, constipation or any urinary symptoms. Reason For Visit: DKA Physical Exam Vital Signs: Temp Pulse Resp BP Pulse Ox 97.8 F 104 H 18 145/73 H 99 12/22/19 07:41 12/22/19 07:41 12/22/19 07:41 12/22/19 07:41 12/22/19 07:41 Intake & Output 12/21/19 12/22/19 12/23/19 06:59 06:59 06:59 Intake Total 1879 911 Output Total 540 2400 Balance 1339 -1489 Weight 87.8 kg 85.5 kg General appearance: PRESENT: no acute distress, well-developed, well-nourished Head exam: PRESENT: atraumatic, normocephalic Respiratory exam: PRESENT: clear to auscultation malcom. ABSENT: rales, rhonchi, wheezes GI/Abdominal exam: PRESENT: normal bowel sounds, soft. ABSENT: distended, guarding, mass, organolmegaly, rebound, tenderness Neurological exam: PRESENT: alert, awake, oriented to person, CN II-XII grossly intact. ABSENT: motor sensory deficit Results Laboratory Results: 12/22/19 05:57 12/22/19 05:57 12/21/19 12/21/19 12/21/19 12:40 14:29 15:31 WBC RBC Hgb Hct MCV MCH MCHC RDW Plt Count Seg Neutrophils % Sodium Cancelled Cancelled 134.8 L Potassium Cancelled Cancelled 4.2 Chloride Cancelled Cancelled 106 Carbon Dioxide Cancelled Cancelled 23 Anion Gap Cancelled Cancelled 6 BUN Cancelled Cancelled 80 H Creatinine Cancelled Cancelled 1.66 H Est GFR ( Amer) Cancelled Cancelled 49 L Est GFR (Non-Af Amer) Cancelled Cancelled Glucose Cancelled Cancelled 142 H Calcium Cancelled Cancelled 8.6 Phosphorus Magnesium 12/21/19 12/22/19 12/22/19 20:45 05:57 05:57 WBC 6.8 RBC 4.39 Hgb 14.1 D Hct 41.4 MCV 94 MCH 32.1 MCHC 34.1 RDW 14.2 H Plt Count 93 L Seg Neutrophils % 79.9 H Sodium 135.6 L 136.3 L Potassium 4.5 4.9 Chloride 105 106 Carbon Dioxide 21 L 21 L Anion Gap 10 9 BUN 77 H 69 H Creatinine 1.52 H 1.43 H Est GFR ( Amer) 54 L 58 L Est GFR (Non-Af Amer) Glucose 228 H 327 H Calcium 8.8 8.5 Phosphorus 3.2 Magnesium 2.5 H Impressions: Chest X-Ray 12/20/19 18:10 IMPRESSION: NO ACUTE RADIOGRAPHIC FINDING IN THE CHEST. Assessment and Plan - Diagnosis (1) Acute metabolic encephalopathy Is this a current diagnosis for this admission?: Yes Plan: No baseline available. I have called Mr. Mendez to inquire about his baseline however no answer. Afebrile. SPO2 WNL on RA. WBC WNL. Electrolytes WNL. Not sure if this is due to underlying DKA, no CT head available will obtain 1. Continue diabetic management, correct electrolytes, monitor vitals. (2) Diabetes mellitus Qualifiers: Diabetes mellitus type: type 2 Chronic kidney disease stage: stage 3 (moderate) Is this a current diagnosis for this admission?: Yes Plan: Uncontrolled. Hemoglobin A1c 7 8%. Presented with DKA. Continue diabetic diet, sliding scale, correctional insulin and basal insulin. Accu-Chek, hypoglycemia protocol. 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 Prerenal likely due to severe dehydration caused by DKA. Monitor electrolytes, replete as needed, monitor volume status, avoid nephrotoxic meds. Continue cautious volume restriction guided volume status. If no improvement will consult nephrology. (4) CAD (coronary artery disease) Qualifiers: Coronary Disease-Associated Artery/Lesion type: unspecified vessel or lesion type Associated angina: without angina Is this a current diagnosis for this admission?: Yes Plan: History of CABG. Denies any anginal symptoms. Continue beta-blockers, ARB, antiplatelets and statins. (5) DKA (diabetic ketoacidoses) Qualifiers: Diabetes mellitus type: type 2 Diabetes mellitus complication detail: with coma Qualified Code(s): E11.11 - Type 2 diabetes mellitus with ketoacidosis with coma Is this a current diagnosis for this admission?: Yes Plan: Resolved. Initially was transferred to ICU. Was started on insulin drip. Currently anion gap WNL. (6) Hypertension Is this a current diagnosis for this admission?: Yes Plan: Not optimized. Resume home meds. Adjust meds as needed. PRN IV hydralazine and metoprolol. Outpatient PCP follow-up. - Time Time Spent with patient: 25-34 minutes Medications reviewed and adjusted accordingly: Yes Anticipated Discharge Disposition: Home, Self Care Anticipated Discharge Timeframe: within 48 hours
--- NOTE | 2019-12-22 14:10 | RADIOLOGY REPORT (SQ) ---
EXAM DESCRIPTION: CT HEAD WITHOUT IMAGES COMPLETED DATE/TIME: 12/22/2019 1:59 pm REASON FOR STUDY: AMX hx of malignancy COMPARISON: None. TECHNIQUE: Axial images acquired through the brain without intravenous contrast. Images reviewed wi th bone, brain and subdural windows. Additional sagittal and coronal reconstructions were generated. Images stored on PACS. All CT scanners at this facility use dose modulation, iterative reconstruction, and/or weight based d osing when appropriate to reduce radiation dose to as low as reasonably achievable (ALARA). [facility]: Dose Right [facility]: CareDose [facility]: Dose Right [facility]: Teradose 4D [facility]: Smart Carbonated Content RADIATION DOSE: CT Rad equipment meets quality standard of care and radiation dose reduction techniq ues were employed. CTDIvol: 53.2 mGy. DLP: 1017 mGy-cm.mGy. LIMITATIONS: None. FINDINGS: VENTRICLES: Prominent. CEREBRUM: No masses. No hemorrhage. No midline shift. Areas of low density in the white matter mos t likely due to chronic micro-vascular ischemic change. No evidence for acute infarction. CEREBELLUM: No masses. No hemorrhage. No alteration of density. No evidence for acute infarction. EXTRAAXIAL SPACES: Age-related involutional change. No fluid collections. No masses. ORBITS AND GLOBE: No intra- or extraconal masses. Normal contour of globe without masses. CALVARIUM: No fracture. PARANASAL SINUSES: No fluid or mucosal thickening. SOFT TISSUES: No mass or hematoma. OTHER: No other significant finding. IMPRESSION: CHRONIC CHANGES OF ATROPHY AND MICROVASCULAR ISCHEMIA. NO ACUTE PROCESS. EVIDENCE OF ACUTE STROKE: NO. TECHNICAL DOCUMENTATION: JOB ID: [id number] Quality ID # [id number]: Final reports with documentation of one or more dose reduction techniques (e.g., Au tomated exposure control, adjustment of the mA and/or kV according to patient size, use of iterative reconstruction technique) 2010 [employer]- All Rights Reserved Reading location - IP/workstation name: [email or web address]
[2019-12-22] MEDS: TAMSULOSIN HCL 0.4 MG CAP.SR.24H PO SCH (18:23)
[2019-12-22] MEDS: ATORVASTATIN CALCIUM 40 MG TABLET PO SCH (21:22)
[2019-12-23] MEDS: NORMAL SALINE 1000 ML 1,000 ML IV PRN (01:10)
[2019-12-23 07:19] LABS: PHOSPHORUS 2.3 mg/dL (2.5-4.5)
[2019-12-23] MEDS: INSULIN LISPRO 100 UNIT/ML 3 ML VIAL SUBCUT SCH ×6 (09:33→22:03)
[2019-12-23] MEDS: LOSARTAN POTASSIUM 50 MG TABLET PO SCH (09:36)
[2019-12-23] MEDS: RIVAROXABAN 10 MG TABLET PO SCH (09:36)
[2019-12-23] MEDS: POTASSIUM CHLORIDE 10 MEQ TABLET.ER PO SCH (09:36)
[2019-12-23] MEDS: TORSEMIDE 20 MG TABLET PO SCH (09:36)
[2019-12-23] MEDS ORDERED: INSULIN GLARGINE,HUM.REC.ANLOG 1,000 UNIT/10 ML VIAL SUBCUT SCH (10:00)
--- NOTE | 2019-12-23 10:38 | PDOC PROGRESS REPORT ---
Subjective Progress Note for:: 12/23/19 Subjective:: Mr. Arroyo is a 79-year-old male with a history of CAD status post CABG x4, CHF, right nephrectomy, ureteral carcinoma, dementia, who was admitted to ICU for DKA. DKA has resolved and patient transferred to floor for further management. 12/22/2019. No acute events overnight. Saw patient this morning, currently resting in bed in no apparent distress, alert and oriented x1, pleasantly confused, no baseline available, cooperative with physical examination, denies any fever, chills, nausea, vomiting, diarrhea, constipation or any urinary symptoms. 12/23/2019. No acute events overnight. Saw patient this morning resting in bed in no apparent distress, unfortunate patient is still confused and does not follow two-step, alert and oriented only x1, does not answers questions appropriately. Apparently patient lives with his who seems to have some type of dementia as per primary nurse who saw her yesterday, I did call her left a message but she has not returned my call, Dr. Ndiaye their son who states that he is not diabetic renal follow-up in his care as his parents make their own decisions, but is stating that at baseline patient has dementia has not confused but whenever her sugar is not under control it gets worse, he would like both of his parents to be placed at a halfway however he is not the primary decision maker. He would like help to see if he can gain their guardianship. I have talked to discharge planners to provide him with some guidance if possible. Meanwhile will try to send patient to short-term rehab. Reason For Visit: DKA Physical Exam Vital Signs: Temp Pulse Resp BP Pulse Ox 98.9 F 92 17 141/72 H 96 12/23/19 07:38 12/23/19 07:38 12/23/19 07:38 12/23/19 07:38 12/23/19 07:38 Intake & Output 12/22/19 12/23/19 12/24/19 06:59 06:59 06:59 Intake Total 911 2120 Output Total 2400 7800 Balance -1489 -550 Weight 85.5 kg 83.9 kg General appearance: PRESENT: no acute distress, well-developed, well-nourished Head exam: PRESENT: atraumatic, normocephalic Respiratory exam: PRESENT: clear to auscultation malcom. ABSENT: rales, rhonchi, wheezes Cardiovascular exam: PRESENT: bradycardia GI/Abdominal exam: PRESENT: normal bowel sounds, soft. ABSENT: distended, guarding, mass, organolmegaly, rebound, tenderness Neurological exam: PRESENT: alert, altered, awake, oriented to person, CN II-XII grossly intact, other - Does not follow two-step command.. ABSENT: motor sensory deficit Skin exam: PRESENT: dry, intact, warm. ABSENT: cyanosis, rash Results Laboratory Results: 12/23/19 07:08 12/22/19 05:57 12/23/19 12/23/19 06:08 07:08 WBC Cancelled RBC Cancelled Hgb Cancelled Hct Cancelled MCV Cancelled MCH Cancelled MCHC Cancelled RDW Cancelled Plt Count Cancelled Seg Neutrophils % Cancelled Phosphorus 2.3 L Magnesium 2.3 Impressions: Chest X-Ray 12/20/19 18:10 IMPRESSION: NO ACUTE RADIOGRAPHIC FINDING IN THE CHEST. Head CT 12/22/19 00:00 IMPRESSION: CHRONIC CHANGES OF ATROPHY AND MICROVASCULAR ISCHEMIA. NO ACUTE PROCESS. EVIDENCE OF ACUTE STROKE: NO. Assessment and Plan - Diagnosis (1) Acute metabolic encephalopathy Is this a current diagnosis for this admission?: Yes Plan: As per son patient has dementia at baseline is confused most of the time which gets worse when his sugar is out of control. As per patient and make their own medical decisions but he is concerned that they are not safe place to self and would like to get their guardianship. Discharge planning has been asked to see if they can provide some guidance for him. Meanwhile we will try to send patient to short-term SNF. Afebrile. SPO2 WNL on RA. WBC WNL. Electrolytes WNL. TSH free T4 and T3 renal WNL. CT head negative for any acute stroke. Not sure if this is due to underlying DKA Will obtain B12, folic acid and VDRL. Continue diabetic management, correct electrolytes, monitor vitals. (2) Diabetes mellitus Qualifiers: Diabetes mellitus type: type 2 Chronic kidney disease stage: stage 3 (moderate) Is this a current diagnosis for this admission?: Yes Plan: Uncontrolled. Hemoglobin A1c 7 8%. Presented with DKA. Continue diabetic diet, sliding scale, correctional insulin and basal insulin. Accu-Chek, hypoglycemia protocol. 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 Prerenal likely due to severe dehydration caused by DKA. Monitor electrolytes, replete as needed, monitor volume status, avoid nephrot oxic meds. Continue cautious volume restriction guided volume status. If no improvement will consult nephrology. (4) CAD (coronary artery disease) Qualifiers: Coronary Disease-Associated Artery/Lesion type: unspecified vessel or lesion type Associated angina: without angina Is this a current diagnosis for this admission?: Yes Plan: History of CABG. Denies any anginal symptoms. Continue beta-blockers, ARB, antiplatelets and statins. (5) Hypertension Is this a current diagnosis for this admission?: Yes Plan: Not optimized. Resume home meds. Adjust meds as needed. PRN IV hydralazine and metoprolol. Outpatient PCP follow-up. (6) DKA (diabetic ketoacidoses) Qualifiers: Diabetes mellitus type: type 2 Diabetes mellitus complication detail: with coma Qualified Code(s): E11.11 - Type 2 diabetes mellitus with ketoacidosis with coma Is this a current diagnosis for this admission?: Yes Plan: Resolved. Initially was transferred to ICU. Was started on insulin drip. Currently anion gap WNL. (7) Dementia Qualifiers: Dementia type: Alzheimer's disease Alzheimer's disease onset: late-onset Is this a current diagnosis for this admission?: Yes Plan: Baseline dementia as per son. Plan as per 1. - Time Time Spent with patient: 25-34 minutes Medications reviewed and adjusted accordingly: Yes Anticipated Discharge Disposition: Custodial Facility Anticipated Discharge Timeframe: when bed available
[2019-12-23] MEDS ORDERED: MULTIVITAMINS W-IRON TABLET, CHEWABLE PO SCH (10:45)
[2019-12-23 11:21] LABS: ABSOLUTE EOSINOPHILS # (AUTO) 0.1 10^3/uL (0.0-0.6); ABSOLUTE LYMPHOCYTES (AUTO) 0.6 10^3/uL (0.5-4.7); ABSOLUTE MONOCYTES (AUTO) 0.5 10^3/uL (0.1-1.4); HEMOGLOBIN 13.7 g/dL (13.5-17.0); TOTAL CELLS COUNTED % (AUTO) 100 %; WHITE BLOOD COUNT 4.9 10^3/uL (4.0-10.5)
[2019-12-23] MEDS: MULTIVITAMIN TABLET PO SCH (12:40)
[2019-12-23 12:43] LABS: HEMATOCRIT 40.1 % (37.9-51.0); RED BLOOD COUNT 4.25 10^6/uL (4.35-5.55)
[2019-12-23 12:44] LABS: LYMPHOCYTES % (AUTO) 11.3 % (13-45); MEAN CORPUSCULAR HEMOGLOBIN 32.2 pg (27.0-33.4); MEAN CORPUSCULAR HGB CONC 34.1 g/dL (32.0-36.0); MEAN CORPUSCULAR VOLUME 94 fl (80-97); RED CELL DISTRIBUTION WIDTH 14.2 % (11.5-14.0); SEGMENTED NEUTROPHILS % (AUTO) 76.5 % (42-78)
[2019-12-23 12:45] LABS: ABSOLUTE NEUT (AUTO) 3.8 10^3/uL (1.7-8.2); BASOPHILS % (AUTO) 0.2 % (0-2); EOSINOPHILS % (AUTO) 1.3 % (0-6); MONOCYTES % (AUTO) 10.7 % (3-13)
[2019-12-23 13:00] LABS: PLATELET COUNT 93 10^3/uL (150-450)
[2019-12-23 14:17] LABS: FOLATE 4.97 ng/mL (>2.76)
[2019-12-23] MEDS: TAMSULOSIN HCL 0.4 MG CAP.SR.24H PO SCH ×2 (17:22→17:24)
[2019-12-23] MEDS: ERGOCALCIFEROL (VITAMIN D2) 50000 UNIT (1.25 MG) CAPSULE PO ONE ×2 (17:22→17:25)
[2019-12-23] MEDS ORDERED: HALOPERIDOL LACTATE INJ 5 MG/1 ML VIAL ONE (18:01)
[2019-12-23] MEDS ORDERED: QUETIAPINE FUMARATE 25 MG TABLET PO SCH (22:00)
[2019-12-23] MEDS: ATORVASTATIN CALCIUM 40 MG TABLET PO SCH (22:07)
[2019-12-24] MEDS: TORSEMIDE 20 MG TABLET PO SCH (09:43)
[2019-12-24] MEDS: LOSARTAN POTASSIUM 50 MG TABLET PO SCH (09:43)
[2019-12-24] MEDS: POTASSIUM CHLORIDE 10 MEQ TABLET.ER PO SCH (09:43)
[2019-12-24] MEDS: RIVAROXABAN 10 MG TABLET PO SCH (09:43)
[2019-12-24] MEDS: INSULIN LISPRO 100 UNIT/ML 3 ML VIAL SUBCUT SCH ×7 (09:44→21:11)
[2019-12-24] MEDS ORDERED: INSULIN GLARGINE,HUM.REC.ANLOG 1,000 UNIT/10 ML VIAL SUBCUT SCH ×2 (10:00)
[2019-12-24] MEDS: MULTIVITAMIN TABLET PO SCH (12:01)
--- NOTE | 2019-12-24 12:24 | PDOC PROGRESS REPORT ---
Subjective Progress Note for:: 12/24/19 Subjective:: Mr. Arroyo is a 79-year-old male with a history of CAD status post CABG x4, CHF, right nephrectomy, ureteral carcinoma, dementia, who was admitted to ICU for DKA. DKA has resolved and patient transferred to floor for further management. 12/22/2019. No acute events overnight. Saw patient this morning, currently resting in bed in no apparent distress, alert and oriented x1, pleasantly confused, no baseline available, cooperative with physical examination, denies any fever, chills, nausea, vomiting, diarrhea, constipation or any urinary symptoms. 12/23/2019. No acute events overnight. Saw patient this morning resting in bed in no apparent distress, unfortunate patient is still confused and does not follow two-step, alert and oriented only x1, does not answers questions appropriately. Apparently patient lives with his who seems to have some type of dementia as per primary nurse who saw her yesterday, I did call her left a message but she has not returned my call, Dr. Ndiaye their son who states that he is not diabetic renal follow-up in his care as his parents make their own decisions, but is stating that at baseline patient has dementia has not confused but whenever her sugar is not under control it gets worse, he would like both of his parents to be placed at a half-way however he is not the primary decision maker. He would like help to see if he can gain their guardianship. I have talked to discharge planners to provide him with some guidance if possible. Meanwhile will try to send patient to short-term rehab. 12/24/2019. Yesterday evening patient was being aggressive towards nursing staff, trying to pull his lines, had to be started on soft two-point restraints, 1 dose of Haldol was given with significant improvement of his behavior, patient was also given 25 mg Seroquel p.o. last night this morning patient is more alert and engaging in conversation, he is oriented x2, does not know why he is in the hospital, does not seem to be in apparent distress, denies any fever, chills, nausea, vomiting. Reason For Visit: DKA Physical Exam Vital Signs: Temp Pulse Resp BP Pulse Ox 97.6 F 90 16 132/82 H 94 12/24/19 03:34 12/24/19 07:00 12/24/19 03:34 12/24/19 03:34 12/24/19 03:34 Intake & Output 12/23/19 12/24/19 12/25/19 06:59 06:59 06:59 Intake Total 2120 440 Output Total 2670 3600 Balance -550 -3160 Weight 83.9 kg 82.6 kg General appearance: PRESENT: no acute distress, well-developed, well-nourished Head exam: PRESENT: atraumatic, normocephalic Respiratory exam: PRESENT: clear to auscultation malcom. ABSENT: rales, rhonchi, wheezes Cardiovascular exam: PRESENT: RRR. ABSENT: diastolic murmur, rubs, systolic murmur GI/Abdominal exam: PRESENT: normal bowel sounds, soft. ABSENT: distended, guarding, mass, organolmegaly, rebound, tenderness Neurological exam: PRESENT: alert, altered, awake, oriented to person, oriented to place, CN II-XII grossly intact. ABSENT: motor sensory deficit Skin exam: PRESENT: dry, intact, warm. ABSENT: cyanosis, rash Results Laboratory Results: 12/23/19 11:03 12/22/19 05:57 12/23/19 12/23/19 06:08 11:03 WBC 4.9 RBC 4.25 L Hgb 13.7 Hct 40.1 MCV 94 MCH 32.2 MCHC 34.1 RDW 14.2 H Plt Count 93 L Seg Neutrophils % 76.5 Vitamin B12 704.0 Folate 4.97 Impressions: Chest X-Ray 12/20/19 18:10 IMPRESSION: NO ACUTE RADIOGRAPHIC FINDING IN THE CHEST. Head CT 12/22/19 00:00 IMPRESSION: CHRONIC CHANGES OF ATROPHY AND MICROVASCULAR ISCHEMIA. NO ACUTE PROCESS. EVIDENCE OF ACUTE STROKE: NO. Assessment and Plan - Diagnosis (1) Acute metabolic encephalopathy Is this a current diagnosis for this admission?: Yes Plan: Improving. Alert and oriented x3. This is likely his baseline. As per son patient has dementia at baseline is confused most of the time which gets worse when his sugar is out of control. As per son patient and make their own medical decisions but he is concerned that they are not safe place to self and would like to get their guardianship. Discharge planning has been asked to see if they can provide some guidance for him. Meanwhile we will try to send patient to short-term SNF. Afebrile. SPO2 WNL on RA. WBC WNL. Electrolytes WNL. TSH free T4 and T3 renal WNL. CT head negative for any acute stroke. B12 folate acid WNL. VDRL nonreactive. Continue Seroquel nightly. Continue diabetic management, correct electrolytes, monitor vitals. (2) Dementia Qualifiers: Dementia type: Alzheimer's disease Alzheimer's disease onset: late-onset Dementia behavioral disturbance: with behavioral disturbance Qualified Code(s): G30.1 - Alzheimer's disease with late onset; F02.81 - Dementia in other diseases classified elsewhere with behavioral disturbance Is this a current diagnosis for this admission?: Yes Plan: Baseline dementia as per son. Patient is at times agitated and combative. Moderate improvement with Seroquel. Continue supportive measures and Seroquel. Outpatient PCP and neurology follow-up. (3) Diabetes mellitus Qualifiers: Diabetes mellitus type: type 2 Chronic kidney disease stage: stage 3 (moderate) Is this a current diagnosis for this admission?: Yes Plan: Uncontrolled. Hemoglobin A1c 7 8%. Presented with DKA. Continue diabetic diet, sliding scale, correctional insulin and basal insulin. Accu-Chek, hypoglycemia protocol. (4) Acute on chronic renal failure Qualifiers: Chronic kidney disease stage: stage 3 (moderate) Is this a current diagnosis for this admission?: Yes Plan: Resolved. Back to baseline. 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 Prerenal likely due to severe dehydration caused by DKA. Monitor electrolytes, replete as needed, monitor volume status, avoid nephrotoxic meds. (5) CAD (coronary artery disease) Qualifiers: Coronary Disease-Associated Artery/Lesion type: unspecified vessel or lesion type Associated angina: without angina Is this a current diagnosis for this admission?: Yes Plan: History of CABG. Denies any anginal symptoms. Continue beta-blockers, ARB, antiplatelets and statins. (6) Hypertension Is this a current diagnosis for this admission?: Yes Plan: Not optimized. Resume home meds. Adjust meds as needed. PRN IV hydralazine and metoprolol. Outpatient PCP follow-up. (7) DKA (diabetic ketoacidoses) Qualifiers: Diabetes mellitus type: type 2 Diabetes mellitus complication detail: with coma Qualified Code(s): E11.11 - Type 2 diabetes mellitus with ketoacidosis with coma Is this a current diagnosis for this admission?: Yes Plan: Resolved. Initially was transferred to ICU. Was started on insulin drip. Currently anion gap WNL. - Time Time Spent with patient: 25-34 minutes Smoking Cessation Education: 3 to 10 minutes Medications reviewed and adjusted accordingly: Yes Anticipated Discharge Disposition: Intermediate Facility Anticipated Discharge Timeframe: when bed available
[2019-12-24] MEDS: TAMSULOSIN HCL 0.4 MG CAP.SR.24H PO SCH (17:19)
[2019-12-24] MEDS: QUETIAPINE FUMARATE 25 MG TABLET PO SCH (21:15)
[2019-12-24] MEDS: ATORVASTATIN CALCIUM 40 MG TABLET PO SCH (21:15)
[2019-12-25 06:22] LABS: BLOOD UREA NITROGEN 34 mg/dL (7-20); CALCIUM 7.8 mg/dL (8.4-10.2); CHLORIDE 106 mmol/L (98-107); POTASSIUM 3.1 mmol/L (3.6-5.0)
[2019-12-25 06:28] LABS: CARBON DIOXIDE 32 mmol/L (22-30)
[2019-12-25 06:29] LABS: ANION GAP 4 (5-19)
[2019-12-25 06:44] LABS: GLUCOSE 58 mg/dL (75-110)
[2019-12-25] MEDS: INSULIN LISPRO 100 UNIT/ML 3 ML VIAL SUBCUT SCH ×8 (07:50→21:47)
[2019-12-25] MEDS: QUETIAPINE FUMARATE 25 MG TABLET PO SCH ×2 (08:09→21:44)
[2019-12-25] MEDS: CALCIUM CARBONATE 600 MG TABLET PO SCH ×2 (10:12→17:17)
[2019-12-25] MEDS: POTASSIUM CHLORIDE 10 MEQ TABLET.ER PO SCH (10:12)
[2019-12-25] MEDS: MAGNESIUM OXIDE 400 MG TABLET PO SCH (10:12)
[2019-12-25] MEDS: LOSARTAN POTASSIUM 50 MG TABLET PO SCH (10:13)
[2019-12-25] MEDS: RIVAROXABAN 10 MG TABLET PO SCH (10:13)
[2019-12-25] MEDS: TORSEMIDE 20 MG TABLET PO SCH (10:13)
[2019-12-25] MEDS: INSULIN GLARGINE,HUM.REC.ANLOG 1,000 UNIT/10 ML VIAL SUBCUT SCH (11:52)
[2019-12-25] MEDS: MULTIVITAMIN TABLET PO SCH (12:02)
--- NOTE | 2019-12-25 12:06 | PDOC PROGRESS REPORT ---
Subjective Progress Note for:: 12/25/19 Subjective:: Mr. Arroyo is a 79-year-old male with a history of CAD status post CABG x4, CHF, right nephrectomy, ureteral carcinoma, dementia, who was admitted to ICU for DKA. DKA has resolved and patient transferred to floor for further management. 12/22/2019. No acute events overnight. Saw patient this morning, currently resting in bed in no apparent distress, alert and oriented x1, pleasantly confused, no baseline available, cooperative with physical examination, denies any fever, chills, nausea, vomiting, diarrhea, constipation or any urinary symptoms. 12/23/2019. No acute events overnight. Saw patient this morning resting in bed in no apparent distress, unfortunate patient is still confused and does not follow two-step, alert and oriented only x1, does not answers questions appropriately. Apparently patient lives with his who seems to have some type of dementia as per primary nurse who saw her yesterday, I did call her left a message but she has not returned my call, Dr. Ndiaye their son who states that he is not diabetic renal follow-up in his care as his parents make their own decisions, but is stating that at baseline patient has dementia has not confused but whenever her sugar is not under control it gets worse, he would like both of his parents to be placed at a shelter however he is not the primary decision maker. He would like help to see if he can gain their guardianship. I have talked to discharge planners to provide him with some guidance if possible. Meanwhile will try to send patient to short-term rehab. 12/24/2019. Yesterday evening patient was being aggressive towards nursing staff, trying to pull his lines, had to be started on soft two-point restraints, 1 dose of Haldol was given with significant improvement of his behavior, patient was also given 25 mg Seroquel p.o. last night this morning patient is more alert and engaging in conversation, he is oriented x2, does not know why he is in the hospital, does not seem to be in apparent distress, denies any fever, chills, nausea, vomiting. 12/25/2019. No acute events overnight. Since being started on Seroquel patient has remarkable improvement of his aggressive behavior and agitation however still very anxious to leave home, he is off of his soft restraints. Patient is alert and oriented and interactive and answering questions appropriately, does not remember that he was in ICU, had a lengthy conversation with him regarding my concern sending him back home as he seems like he is not safe for him to go home now, patient is very hesitant but agreed to, short-term rehab for now. 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 Discharge planning has been consulted and patient is pending transfer to SNF Reason For Visit: DKA Physical Exam Vital Signs: Temp Pulse Resp BP Pulse Ox 97.4 F 82 20 125/71 90 L 12/25/19 11:29 12/25/19 11:29 12/25/19 11:29 12/25/19 11:29 12/25/19 11:29 Intake & Output 12/24/19 12/25/19 12/26/19 06:59 06:59 06:59 Intake Total 440 1384 240 Output Total 3600 1600 Balance -3160 -216 240 Weight 82.6 kg 85 kg General appearance: PRESENT: no acute distress, well-developed, well-nourished Head exam: PRESENT: atraumatic, normocephalic Respiratory exam: PRESENT: clear to auscultation malcom. ABSENT: rales, rhonchi, wheezes Cardiovascular exam: PRESENT: RRR. ABSENT: diastolic murmur, rubs, systolic murmur GI/Abdominal exam: PRESENT: normal bowel sounds, soft. ABSENT: distended, guarding, mass, organolmegaly, rebound, tenderness Extremities exam: PRESENT: full ROM. ABSENT: calf tenderness, clubbing, pedal edema Neurological exam: PRESENT: alert, awake, oriented to person, oriented to place, oriented to time, oriented to situation, CN II-XII grossly intact. ABSENT: motor sensory deficit Psychiatric exam: PRESENT: anxious Results Laboratory Results: 12/23/19 11:03 12/25/19 05:36 12/25/19 05:36 Sodium 142.0 Potassium 3.1 L Chloride 106 Carbon Dioxide 32 H Anion Gap 4 L BUN 34 H Creatinine 1.14 Est GFR ( Amer) > 60 Glucose 58 L Calcium 7.8 L Impressions: Chest X-Ray 12/20/19 18:10 IMPRESSION: NO ACUTE RADIOGRAPHIC FINDING IN THE CHEST. Head CT 12/22/19 00:00 IMPRESSION: CHRONIC CHANGES OF ATROPHY AND MICROVASCULAR ISCHEMIA. NO ACUTE PROCESS. EVIDENCE OF ACUTE STROKE: NO. Assessment and Plan - Diagnosis (1) Acute metabolic encephalopathy Is this a current diagnosis for this admission?: Yes Plan: Resolved. Patient is alert and oriented x3. Answering question appropriately. Does not not not remember how he got to the hospital and was in ICU does not seem to have an understanding of his underlying medical condition. Scored 17 on Mini-Mental Status Examination. As per son patient has dementia at baseline is confused most of the time which gets worse when his sugar is out of control. As per son patient and make their own medical decisions but he is concerned that they are not safe place to self and would like to get their guardianship. Patient has agreed to be transferred to short-term rehab. Discharge planning has been consulted. Afebrile. SPO2 WNL on RA. WBC WNL. Electrolytes WNL. TSH free T4 and T3 renal WNL. CT head negative for any acute stroke. B12 folate acid WNL. VDRL nonreactive. Continue Seroquel. Continue diabetic management, correct electrolytes, monitor vitals. (2) Dementia Qualifiers: Dementia type: Alzheimer's disease Alzheimer's disease onset: late-onset Dementia behavioral disturbance: with behavioral disturbance Qualified Code(s): G30.1 - Alzheimer's disease with late onset; F02.81 - Dementia in other diseases classified elsewhere with behavioral disturbance Is this a current diagnosis for this admission?: Yes Plan: Patient is alert and oriented x3. Moderate dementia. Scored 17 on Mini-Mental Status Examination. Baseline dementia as per son. Moderate improvement aggressive behavior and agitation with Seroquel. Continue supportive measures and Seroquel. Outpatient PCP and neurology follow-up. (3) Diabetes mellitus Qualifiers: Diabetes mellitus type: type 2 Chronic kidney disease stage: stage 3 (moderate) Is this a current diagnosis for this admission?: Yes Plan: Uncontrolled. Improving. Hemoglobin A1c 7 8%. Presented with DKA. Continue diabetic diet, sliding scale, correctional insulin and basal insulin. Accu-Chek, hypoglycemia protocol. (4) Acute on chronic renal failure Qualifiers: Chronic kidney disease stage: stage 3 (moderate) Is this a current diagnosis for this admission?: Yes Plan: Resolved. Back to baseline. 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 Prerenal likely due to severe dehydration caused by DKA. Monitor electrolytes, replete as needed, monitor volume status, avoid nephrotoxic meds. (5) CAD (coronary artery disease) Qualifiers: Coronary Disease-Associated Artery/Lesion type: unspecified vessel or lesion type Associated angina: without angina Is this a current diagnosis for this admission?: Yes Plan: History of CABG. Denies any anginal symptoms. Continue beta-blockers, ARB, antiplatelets and statins. (6) Hypertension Is this a current diagnosis for this admission?: Yes Plan: Not optimized. Resume home meds. Adjust meds as needed. PRN IV hydralazine and metoprolol. Outpatient PCP follow-up. (7) DKA (diabetic ketoacidoses) Qualifiers: Diabetes mellitus type: type 2 Diabetes mellitus complication detail: with coma Qualified Code(s): E11.11 - Type 2 diabetes mellitus with ketoacidosis with coma Is this a current diagnosis for this admission?: Yes Plan: Resolved. Initially was transferred to ICU. Was started on insulin drip. Currently anion gap WNL. - Time Time Spent with patient: 25-34 minutes Medications reviewed and adjusted accordingly: Yes Anticipated Discharge Disposition: Correction Facility Anticipated Discharge Timeframe: when bed available
[2019-12-25] MEDS: TAMSULOSIN HCL 0.4 MG CAP.SR.24H PO SCH (17:17)
[2019-12-25] MEDS: ATORVASTATIN CALCIUM 40 MG TABLET PO SCH (21:44)
[2019-12-26] MEDS: INSULIN LISPRO 100 UNIT/ML 3 ML VIAL SUBCUT SCH ×7 (07:40→21:01)
[2019-12-26] MEDS: QUETIAPINE FUMARATE 25 MG TABLET PO SCH ×2 (08:47→21:25)
[2019-12-26] MEDS: MAGNESIUM OXIDE 400 MG TABLET PO SCH (09:14)
[2019-12-26] MEDS: RIVAROXABAN 10 MG TABLET PO SCH (09:14)
[2019-12-26] MEDS: TORSEMIDE 20 MG TABLET PO SCH (09:14)
[2019-12-26] MEDS: POTASSIUM CHLORIDE 10 MEQ TABLET.ER PO SCH (09:14)
[2019-12-26] MEDS: LOSARTAN POTASSIUM 50 MG TABLET PO SCH (09:14)
[2019-12-26] MEDS: CALCIUM CARBONATE 600 MG TABLET PO SCH ×2 (09:14→17:12)
[2019-12-26] MEDS: INSULIN GLARGINE,HUM.REC.ANLOG 1,000 UNIT/10 ML VIAL SUBCUT SCH (10:31)
[2019-12-26] MEDS: MULTIVITAMIN TABLET PO SCH (12:12)
--- NOTE | 2019-12-26 16:55 | PDOC PROGRESS REPORT ---
Subjective Progress Note for:: 12/26/19 Subjective:: Mr. Arroyo is a 79-year-old male with a history of CAD status post CABG x4, CHF, right nephrectomy, ureteral carcinoma, dementia, who was admitted to ICU for DKA. DKA has resolved and patient transferred to floor for further management. 12/22/2019. No acute events overnight. Saw patient this morning, currently resting in bed in no apparent distress, alert and oriented x1, pleasantly confused, no baseline available, cooperative with physical examination, denies any fever, chills, nausea, vomiting, diarrhea, constipation or any urinary symptoms. 12/23/2019. No acute events overnight. Saw patient this morning resting in bed in no apparent distress, unfortunate patient is still confused and does not follow two-step, alert and oriented only x1, does not answers questions appropriately. Apparently patient lives with his who seems to have some type of dementia as per primary nurse who saw her yesterday, I did call her left a message but she has not returned my call, Dr. Ndiaye their son who states that he is not diabetic renal follow-up in his care as his parents make their own decisions, but is stating that at baseline patient has dementia has not confused but whenever her sugar is not under control it gets worse, he would like both of his parents to be placed at a [facility] however he is not the primary decision maker. He would like help to see if he can gain their guardianship. I have talked to discharge planners to provide him with some guidance if possible. Meanwhile will try to send patient to short-term rehab. 12/24/2019. Yesterday evening patient was being aggressive towards nursing staff, trying to pull his lines, had to be started on soft two-point restraints, 1 dose of Haldol was given with significant improvement of his behavior, patient was also given 25 mg Seroquel p.o. last night this morning patient is more alert and engaging in conversation, he is oriented x2, does not know why he is in the hospital, does not seem to be in apparent distress, denies any fever, chills, nausea, vomiting. 12/25/2019. No acute events overnight. Since being started on Seroquel patient has remarkable improvement of his aggressive behavior and agitation however still very anxious to leave home, he is off of his soft restraints. Patient is alert and oriented and interactive and answering questions appropriately, does not remember that he was in ICU, had a lengthy conversation with him regarding my concern sending him back home as he seems like he is not safe for him to go home now, patient is very hesitant but agreed to, short-term rehab for now. Patient is very concerned about his insulin pump and would like to follow-up with his insulation cutter and former I have assured him that when he is in rehab he will be able to keep his appointments with his physicians. Discharge planning has been consulted and patient is pending transfer to SNF 12/26/2019. No acute events overnight. Patient behavior has improved however still tried to get out of bed once a while, alert and oriented and cooperative with physical examination, denies any fever, chills, nausea, vomiting. Pending to be transferred to SNF. Reason For Visit: DKA Physical Exam Vital Signs: Temp Pulse Resp BP Pulse Ox 98.2 F 88 20 145/66 H 96 12/26/19 15:56 12/26/19 15:56 12/26/19 15:56 12/26/19 15:56 12/26/19 15:56 Intake & Output 12/25/19 12/26/19 12/27/19 06:59 06:59 06:59 Intake Total 1384 1380 730 Output Total 1600 1470 Balance -216 -90 730 Weight 85 kg 85.1 kg General appearance: PRESENT: no acute distress, well-developed, well-nourished Head exam: PRESENT: atraumatic, normocephalic Respiratory exam: PRESENT: clear to auscultation malcom. ABSENT: rales, rhonchi, wheezes Cardiovascular exam: PRESENT: RRR. ABSENT: diastolic murmur, rubs, systolic murmur GI/Abdominal exam: PRESENT: normal bowel sounds, soft. ABSENT: distended, guarding, mass, organolmegaly, rebound, tenderness Neurological exam: PRESENT: alert, awake, oriented to person, oriented to place, oriented to time, CN II-XII grossly intact. ABSENT: motor sensory deficit Results Laboratory Results: 12/23/19 11:03 12/25/19 05:36 Impressions: Chest X-Ray 12/20/19 18:10 IMPRESSION: NO ACUTE RADIOGRAPHIC FINDING IN THE CHEST. Head CT 08/02/20 00:00 IMPRESSION: CHRONIC CHANGES OF ATROPHY AND MICROVASCULAR ISCHEMIA. NO ACUTE PROCESS. EVIDENCE OF ACUTE STROKE: NO. Assessment and Plan - Diagnosis (1) Acute metabolic encephalopathy Is this a current diagnosis for this admission?: Yes Plan: Resolved. Patient is alert and oriented x3. Answering question appropriately. Does not not not remember how he got to the hospital and was in ICU does not seem to have an understanding of his underlying medical condition. Scored 17 on Mini-Mental Status Examination. As per son patient has dementia at baseline is confused most of the time which gets worse when his sugar is out of control. As per son patient and make their own medical decisions but he is concerned that they are not safe place to self and would like to get their guardianship. Patient has agreed to be transferred to short-term rehab. Discharge planning has been consulted. Afebrile. SPO2 WNL on RA. WBC WNL. Electrolytes WNL. TSH free T4 and T3 renal WNL. CT head negative for any acute stroke. B12 folate acid WNL. VDRL nonreactive. Continue Seroquel. Continue diabetic management, correct electrolytes, monitor vitals. (2) Dementia Qualifiers: Dementia type: Alzheimer's disease Alzheimer's disease onset: late-onset Dementia behavioral disturbance: with behavioral disturbance Qualified Code(s): G30.1 - Alzheimer's disease with late onset; F02.81 - Dementia in other diseases classified elsewhere with behavioral disturbance Is this a current diagnosis for this admission?: Yes Plan: Patient is alert and oriented x3. Moderate dementia. Scored 17 on Mini-Mental Status Examination. Baseline dementia as per son. Moderate improvement aggressive behavior and agitation with Seroquel. Continue supportive measures and Seroquel. Outpatient PCP and neurology follow-up. (3) Diabetes mellitus Qualifiers: Diabetes mellitus type: type 2 Chronic kidney disease stage: stage 3 (moderate) Is this a current diagnosis for this admission?: Yes Plan: Uncontrolled. Improving. Hemoglobin A1c 7 8%. Presented with DKA. Continue diabetic diet, sliding scale, correctional insulin and basal insulin. Accu-Chek, hypoglycemia protocol. (4) Acute on chronic renal failure Qualifiers: Chronic kidney disease stage: stage 3 (moderate) Is this a current diagnosis for this admission?: Yes Plan: Resolved. Back to baseline. 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 Prerenal likely due to severe dehydration caused by DKA. Monitor electrolytes, replete as needed, monitor volume status, avoid nephrotoxic meds. (5) CAD (coronary artery disease) Qualifiers: Coronary Disease-Associated Artery/Lesion type: unspecified vessel or lesion type Associated angina: without angina Is this a current diagnosis for this admission?: Yes Plan: History of CABG. Denies any anginal symptoms. Continue beta-blockers, ARB, antiplatelets and statins. (6) Hypertension Is this a current diagnosis for this admission?: Yes Plan: Not optimized. Resume home meds. Adjust meds as needed. PRN IV hydralazine and metoprolol. Outpatient PCP follow-up. (7) DKA (diabetic ketoacidoses) Qualifiers: Diabetes mellitus type: type 2 Diabetes mellitus complication detail: with coma Qualified Code(s): E11.11 - Type 2 diabetes mellitus with ketoacidosis with coma Is this a current diagnosis for this admission?: Yes Plan: Resolved. Initially was transferred to ICU. Was started on insulin drip. Currently anion gap WNL. - Time Time Spent with patient: 35 or more minutes Medications reviewed and adjusted accordingly: Yes Anticipated Discharge Disposition: [facility] Facility Anticipated Discharge Timeframe: when bed available
[2019-12-26] MEDS: TAMSULOSIN HCL 0.4 MG CAP.SR.24H PO SCH (17:12)
[2019-12-26] MEDS: ATORVASTATIN CALCIUM 40 MG TABLET PO SCH (21:25)
[2019-12-27 06:42] LABS: BLOOD UREA NITROGEN 26 mg/dL (7-20); CALCIUM 8.1 mg/dL (8.4-10.2); GLUCOSE 328 mg/dL (75-110)
[2019-12-27 06:43] LABS: ANION GAP 8 (5-19); CARBON DIOXIDE 24 mmol/L (22-30); CHLORIDE 101 mmol/L (98-107); POTASSIUM 4.1 mmol/L (3.6-5.0)
[2019-12-27] MEDS: QUETIAPINE FUMARATE 25 MG TABLET PO SCH ×2 (07:14→21:53)
[2019-12-27] MEDS: INSULIN LISPRO 100 UNIT/ML 3 ML VIAL SUBCUT SCH ×7 (07:15→21:52)
[2019-12-27] MEDS ORDERED: INSULIN LISPRO 100 UNIT/ML 3 ML VIAL SUBCUT SCH (08:00)
[2019-12-27] MEDS: CALCIUM CARBONATE 600 MG TABLET PO SCH ×2 (09:31→17:56)
[2019-12-27] MEDS: TORSEMIDE 20 MG TABLET PO SCH (09:32)
[2019-12-27] MEDS: RIVAROXABAN 10 MG TABLET PO SCH (09:32)
[2019-12-27] MEDS: POTASSIUM CHLORIDE 10 MEQ TABLET.ER PO SCH (09:32)
[2019-12-27] MEDS: MAGNESIUM OXIDE 400 MG TABLET PO SCH (09:32)
[2019-12-27] MEDS: LOSARTAN POTASSIUM 50 MG TABLET PO SCH (09:32)
[2019-12-27] MEDS ORDERED: INSULIN GLARGINE,HUM.REC.ANLOG 1,000 UNIT/10 ML VIAL SUBCUT SCH (10:00)
[2019-12-27] MEDS: MULTIVITAMIN TABLET PO SCH (11:11)
[2019-12-27] MEDS: INSULIN GLARGINE,HUM.REC.ANLOG 1,000 UNIT/10 ML VIAL SUBCUT SCH (11:12)
--- NOTE | 2019-12-27 11:47 | PDOC PROGRESS REPORT ---
Subjective Progress Note for:: 12/27/19 Subjective:: Mr. Arroyo is a 79-year-old male with a history of CAD status post CABG x4, CHF, right nephrectomy, ureteral carcinoma, dementia, who was admitted to ICU for DKA. DKA has resolved and patient transferred to floor for further management. 12/22/2019. No acute events overnight. Saw patient this morning, currently resting in bed in no apparent distress, alert and oriented x1, pleasantly confused, no baseline available, cooperative with physical examination, denies any fever, chills, nausea, vomiting, diarrhea, constipation or any urinary symptoms. 12/23/2019. No acute events overnight. Saw patient this morning resting in bed in no apparent distress, unfortunate patient is still confused and does not follow two-step, alert and oriented only x1, does not answers questions appropriately. Apparently patient lives with his who seems to have some type of dementia as per primary nurse who saw her yesterday, I did call her left a message but she has not returned my call, Dr. Ndiaye their son who states that he is not diabetic renal follow-up in his care as his parents make their own decisions, but is stating that at baseline patient has dementia has not confused but whenever her sugar is not under control it gets worse, he would like both of his parents to be placed at a shelter however he is not the primary decision maker. He would like help to see if he can gain their guardianship. I have talked to discharge planners to provide him with some guidance if possible. Meanwhile will try to send patient to short-term rehab. 12/24/2019. Yesterday evening patient was being aggressive towards nursing staff, trying to pull his lines, had to be started on soft two-point restraints, 1 dose of Haldol was given with significant improvement of his behavior, patient was also given 25 mg Seroquel p.o. last night this morning patient is more alert and engaging in conversation, he is oriented x2, does not know why he is in the hospital, does not seem to be in apparent distress, denies any fever, chills, nausea, vomiting. 12/25/2019. No acute events overnight. Since being started on Seroquel patient has remarkable improvement of his aggressive behavior and agitation however still very anxious to leave home, he is off of his soft restraints. Patient is alert and oriented and interactive and answering questions appropriately, does not remember that he was in ICU, had a lengthy conversation with him regarding my concern sending him back home as he seems like he is not safe for him to go home now, patient is very hesitant but agreed to, short-term rehab for now. Patient is very concerned about his insulin pump and would like to follow-up with his healthcare management consultant I have assured him that when he is in rehab he will be able to keep his appointments with his physicians. Discharge planning has been consulted and patient is pending transfer to SNF 12/26/2019. No acute events overnight. Patient behavior has improved however still tried to get out of bed once a while, alert and oriented and cooperative with physical examination, denies any fever, chills, nausea, vomiting. Pending to be transferred to SNF. 12/27/2019. No acute events overnight. Pending transfer to rehab. Reason For Visit: DKA Physical Exam Vital Signs: Temp Pulse Resp BP Pulse Ox 97.5 F 80 12 115/58 L 83 L 12/27/19 09:11 12/27/19 09:11 12/27/19 09:11 12/27/19 09:11 12/27/19 09:11 Intake & Output 12/26/19 12/27/19 12/28/19 06:59 06:59 06:59 Intake Total 1380 1730 Output Total 1470 1700 Balance -90 30 Weight 85.1 kg 84.1 kg General appearance: PRESENT: no acute distress, well-developed, well-nourished Head exam: PRESENT: atraumatic, normocephalic Respiratory exam: PRESENT: clear to auscultation malcom. ABSENT: rales, rhonchi, wheezes GI/Abdominal exam: PRESENT: normal bowel sounds, soft. ABSENT: distended, guard ing, mass, organolmegaly, rebound, tenderness Neurological exam: PRESENT: alert, awake, oriented to person, oriented to place, oriented to time, CN II-XII grossly intact. ABSENT: motor sensory deficit Results Laboratory Results: 12/23/19 11:03 12/27/19 05:19 12/27/19 05:19 Sodium 133.2 L Potassium 4.1 Chloride 101 Carbon Dioxide 24 Anion Gap 8 BUN 26 H Creatinine 0.98 Est GFR ( Amer) > 60 Glucose 328 H Calcium 8.1 L Magnesium 2.1 Impressions: Chest X-Ray 12/20/19 18:10 IMPRESSION: NO ACUTE RADIOGRAPHIC FINDING IN THE CHEST. Head CT 12/22/19 00:00 IMPRESSION: CHRONIC CHANGES OF ATROPHY AND MICROVASCULAR ISCHEMIA. NO ACUTE PROCESS. EVIDENCE OF ACUTE STROKE: NO. Assessment and Plan - Diagnosis (1) Acute metabolic encephalopathy Is this a current diagnosis for this admission?: Yes Plan: Resolved. Patient is alert and oriented x3. Answering question appropriately. Does not not not remember how he got to the hospital and was in ICU does not seem to have an understanding of his underlying medical condition. Scored 17 on Mini-Mental Status Examination. As per son patient has dementia at baseline is confused most of the time which gets worse when his sugar is out of control. As per son patient and make their own medical decisions but he is concerned that they are not safe place to self and would like to get their guardianship. Patient has agreed to be transferred to short-term rehab. Discharge planning has been consulted. Afebrile. SPO2 WNL on RA. WBC WNL. Electrolytes WNL. TSH free T4 and T3 renal WNL. CT head negative for any acute stroke. B12 folate acid WNL. VDRL nonreactive. Continue Seroquel. Continue diabetic management, correct electrolytes, monitor vitals. (2) Dementia Qualifiers: Dementia type: Alzheimer's disease Alzheimer's disease onset: late-onset Dementia behavioral disturbance: with behavioral disturbance Qualified Code(s): G30.1 - Alzheimer's disease with late onset; F02.81 - Dementia in other diseases classified elsewhere with behavioral disturbance Is this a current diagnosis for this admission?: Yes Plan: Patient is alert and oriented x3. Moderate dementia. Scored 17 on Mini-Mental Status Examination. Baseline dementia as per son. Moderate improvement aggressive behavior and agitation with Seroquel. Continue supportive measures and Seroquel. Outpatient PCP and neurology follow-up. (3) Diabetes mellitus Qualifiers: Diabetes mellitus type: type 2 Chronic kidney disease stage: stage 3 (moderate) Is this a current diagnosis for this admission?: Yes Plan: Uncontrolled. Improving. Hemoglobin A1c 7 8%. Presented with DKA. Continue diabetic diet, sliding scale, correctional insulin and basal insulin. Accu-Chek, hypoglycemia protocol. (4) Acute on chronic renal failure Qualifiers: Chronic kidney disease stage: stage 3 (moderate) Is this a current diagnosis for this admission?: Yes Plan: Resolved. Back to baseline. 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 Prerenal likely due to severe dehydration caused by DKA. Monitor electrolytes, replete as needed, monitor volume status, avoid nephrotoxic meds. (5) CAD (coronary artery disease) Qualifiers: Coronary Disease-Associated Artery/Lesion type: unspecified vessel or lesion type Associated angina: without angina Is this a current diagnosis for this admission?: Yes Plan: History of CABG. Denies any anginal symptoms. Continue beta-blockers, ARB, antiplatelets and statins. (6) Hypertension Is this a current diagnosis for this admission?: Yes Plan: Not optimized. Resume home meds. Adjust meds as needed. PRN IV hydralazine and metoprolol. Outpatient PCP follow-up. (7) DKA (diabetic ketoacidoses) Qualifiers: Diabetes mellitus type: type 2 Diabetes mellitus complication detail: with coma Qualified Code(s): E11.11 - Type 2 diabetes mellitus with ketoacidosis with coma Is this a current diagnosis for this admission?: Yes Plan: Resolved. Initially was transferred to ICU. Was started on insulin drip. Currently anion gap WNL. - Time Time Spent with patient: 25-34 minutes Medications reviewed and adjusted accordingly: Yes Anticipated Discharge Disposition: [facility] Facility Anticipated Discharge Timeframe: when bed available
[2019-12-27 16:07] LABS: ARTERIAL BLOOD BASE EXCESS 6.1 mmol/L; ARTERIAL BLOOD FIO2 2L; ARTERIAL BLOOD HCO3 30.5 mmol/L (20-24); ARTERIAL BLOOD O2 SATURATION 95.2 % (94-98); ARTERIAL BLOOD PCO2 43.1 mmHg (35-45); ARTERIAL BLOOD PH 7.47 (7.35-7.45); ARTERIAL BLOOD PO2 71.4 mmHg (80-100); ARTERIAL BLOOD TOTAL CO2 31.8 mmol/L (23-27)
[2019-12-27] MEDS: TAMSULOSIN HCL 0.4 MG CAP.SR.24H PO SCH (17:56)
[2019-12-27] MEDS: ATORVASTATIN CALCIUM 40 MG TABLET PO SCH (21:53)
[2019-12-28] MEDS: INSULIN LISPRO 100 UNIT/ML 3 ML VIAL SUBCUT SCH ×7 (08:28→22:00)
[2019-12-28] MEDS: QUETIAPINE FUMARATE 25 MG TABLET PO SCH ×2 (08:28→23:18)
[2019-12-28] MEDS: MAGNESIUM OXIDE 400 MG TABLET PO SCH (09:09)
[2019-12-28] MEDS: CALCIUM CARBONATE 600 MG TABLET PO SCH ×2 (09:09→17:10)
[2019-12-28] MEDS: LOSARTAN POTASSIUM 50 MG TABLET PO SCH (09:09)
[2019-12-28] MEDS: RIVAROXABAN 10 MG TABLET PO SCH (09:09)
[2019-12-28] MEDS: POTASSIUM CHLORIDE 10 MEQ TABLET.ER PO SCH (09:10)
[2019-12-28] MEDS: TORSEMIDE 20 MG TABLET PO SCH (09:10)
[2019-12-28] MEDS: MULTIVITAMIN TABLET PO SCH (12:11)
[2019-12-28] MEDS: INSULIN GLARGINE,HUM.REC.ANLOG 1,000 UNIT/10 ML VIAL SUBCUT SCH (12:14)
--- NOTE | 2019-12-28 12:39 | PDOC PROGRESS REPORT ---
Subjective Progress Note for:: 12/28/19 Subjective:: Mr. Arroyo is a 79-year-old male with a history of CAD status post CABG x4, CHF, right nephrectomy, ureteral carcinoma, dementia, who was admitted to ICU for DKA. DKA has resolved and patient transferred to floor for further management. 12/22/2019. No acute events overnight. Saw patient this morning, currently resting in bed in no apparent distress, alert and oriented x1, pleasantly confused, no baseline available, cooperative with physical examination, denies any fever, chills, nausea, vomiting, diarrhea, constipation or any urinary symptoms. 12/23/2019. No acute events overnight. Saw patient this morning resting in bed in no apparent distress, unfortunate patient is still confused and does not follow two-step, alert and oriented only x1, does not answers questions appropriately. Apparently patient lives with his who seems to have some type of dementia as per primary nurse who saw her yesterday, I did call her left a message but she has not returned my call, Dr. Ndiaye their son who states that he is not diabetic renal follow-up in his care as his parents make their own decisions, but is stating that at baseline patient has dementia has not confused but whenever her sugar is not under control it gets worse, he would like both of his parents to be placed at a residential however he is not the primary decision maker. He would like help to see if he can gain their guardianship. I have talked to discharge planners to provide him with some guidance if possible. Meanwhile will try to send patient to short-term rehab. 12/24/2019. Yesterday evening patient was being aggressive towards nursing staff, trying to pull his lines, had to be started on soft two-point restraints, 1 dose of Haldol was given with significant improvement of his behavior, patient was also given 25 mg Seroquel p.o. last night this morning patient is more alert and engaging in conversation, he is oriented x2, does not know why he is in the hospital, does not seem to be in apparent distress, denies any fever, chills, nausea, vomiting. 12/25/2019. No acute events overnight. Since being started on Seroquel patient has remarkable improvement of his aggressive behavior and agitation however still very anxious to leave home, he is off of his soft restraints. Patient is alert and oriented and interactive and answering questions appropriately, does not remember that he was in ICU, had a lengthy conversation with him regarding my concern sending him back home as he seems like he is not safe for him to go home now, patient is very hesitant but agreed to, short-term rehab for now. Patient is very concerned about his insulin pump and would like to follow-up with his manager pest I have assured him that when he is in rehab he will be able to keep his appointments with his physicians. Discharge planning has been consulted and patient is pending transfer to SNF 12/26/2019. No acute events overnight. Patient behavior has improved however still tried to get out of bed once a while, alert and oriented and cooperative with physical examination, denies any fever, chills, nausea, vomiting. Pending to be transferred to SNF. 12/27/2019. No acute events overnight. Pending transfer to rehab. 12/28/2019. Yesterday patient was noted to be confused EEG was done which was unremarkable and bladder scan showed urinary retention, patient again had a s traight better night, this morning at baseline alert and oriented and enjoying his breakfast, does not remember that he was confused yesterday. Was notified that he is retaining urine, he has agreed to allow support of indwelling Layne catheter. Denies any fever, chills, nausea, vomiting. Pending transfer. Reason For Visit: DKA Physical Exam Vital Signs: Temp Pulse Resp BP Pulse Ox 97.7 F 92 16 118/71 100 12/28/19 03:13 12/28/19 07:00 12/28/19 03:13 12/28/19 03:13 12/28/19 03:13 Intake & Output 12/27/19 12/28/19 12/29/19 06:59 06:59 06:59 Intake Total 1730 740 Output Total 1700 1125 Balance 30 -385 Weight 84.1 kg 83.6 kg General appearance: PRESENT: no acute distress, well-developed, well-nourished Head exam: PRESENT: atraumatic, normocephalic Respiratory exam: PRESENT: clear to auscultation malcom. ABSENT: rales, rhonchi, wheezes Cardiovascular exam: PRESENT: RRR. ABSENT: diastolic murmur, rubs, systolic murmur GI/Abdominal exam: PRESENT: normal bowel sounds, soft. ABSENT: distended, guarding, mass, organolmegaly, rebound, tenderness Neurological exam: PRESENT: alert, awake, oriented to person, CN II-XII grossly intact. ABSENT: motor sensory deficit Psychiatric exam: PRESENT: appropriate affect, normal mood. ABSENT: homicidal ideation, suicidal ideation Results Laboratory Results: 12/23/19 11:03 12/27/19 05:19 12/27/19 15:48 Carbonic Acid 1.30 HCO3/H2CO3 Ratio 23:1 ABG pH 7.47 H ABG pCO2 43.1 ABG pO2 71.4 L ABG HCO3 30.5 H ABG O2 Saturation 95.2 ABG Base Excess 6.1 FiO2 2L Impressions: Chest X-Ray 12/20/19 18:10 IMPRESSION: NO ACUTE RADIOGRAPHIC FINDING IN THE CHEST. Head CT 12/22/19 00:00 IMPRESSION: CHRONIC CHANGES OF ATROPHY AND MICROVASCULAR ISCHEMIA. NO ACUTE PROCESS. EVIDENCE OF ACUTE STROKE: NO. Assessment and Plan - Diagnosis (1) Acute metabolic encephalopathy Is this a current diagnosis for this admission?: Yes Plan: Resolved. Patient is alert and oriented x3. Answering question appropriately. Does not not not remember how he got to the hospital and was in ICU does not seem to have an understanding of his underlying medical condition. Scored 17 on Mini-Mental Status Examination. As per son patient has dementia at baseline is confused most of the time which gets worse when his sugar is out of control. As per son patient and make their own medical decisions but he is concerned that they are not safe place to self and would like to get their guardianship. Patient has agreed to be transferred to short-term rehab. Discharge planning has been consulted. Afebrile. SPO2 WNL on RA. WBC WNL. Electrolytes WNL. TSH free T4 and T3 [place] l WNL. CT head negative for any acute stroke. B12 folate acid WNL. VDRL nonreactive. Continue Seroquel. Continue diabetic management, correct electrolytes, monitor vitals. (2) Dementia Qualifiers: Dementia type: Alzheimer's disease Alzheimer's disease onset: late-onset Dementia behavioral disturbance: with behavioral disturbance Qualified Code(s): G30.1 - Alzheimer's disease with late onset; F02.81 - Dementia in other diseases classified elsewhere with behavioral disturbance Is this a current diagnosis for this admission?: Yes Plan: Patient is alert and oriented x3. Moderate dementia. Scored 17 on Mini-Mental Status Examination. Baseline dementia as per son. Moderate improvement aggressive behavior and agitation with Seroquel. Continue supportive measures and Seroquel. Outpatient PCP and neurology follow-up. (3) Diabetes mellitus Qualifiers: Diabetes mellitus type: type 2 Chronic kidney disease stage: stage 3 (moderate) Is this a current diagnosis for this admission?: Yes Plan: Uncontrolled. Improving. Hemoglobin A1c 7 8%. Presented with DKA. Continue diabetic diet, sliding scale, correctional insulin and basal insulin. Accu-Chek, hypoglycemia protocol. (4) Acute on chronic renal failure Qualifiers: Chronic kidney disease stage: stage 3 (moderate) Is this a current diagnosis for this admission?: Yes Plan: Resolved. Back to baseline. 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 Prerenal likely due to severe dehydration caused by DKA. Monitor electrolytes, replete as needed, monitor volume status, avoid nephrotoxic meds. (5) CAD (coronary artery disease) Qualifiers: Coronary Disease-Associated Artery/Lesion type: unspecified vessel or lesion type Associated angina: without angina Is this a current diagnosis for this admission?: Yes Plan: History of CABG. Denies any anginal symptoms. Continue beta-blockers, ARB, antiplatelets and statins. (6) Hypertension Is this a current diagnosis for this admission?: Yes Plan: Not optimized. Resume home meds. Adjust meds as needed. PRN IV hydralazine and metoprolol. Outpatient PCP follow-up. (7) DKA (diabetic ketoacidoses) Qualifiers: Diabetes mellitus type: type 2 Diabetes mellitus complication detail: with coma Qualified Code(s): E11.11 - Type 2 diabetes mellitus with ketoacidosis with coma Is this a current diagnosis for this admission?: Yes Plan: Resolved. Initially was transferred to ICU. Was started on insulin drip. Currently anion gap WNL. - Time Time Spent with patient: 25-34 minutes Medications reviewed and adjusted accordingly: Yes Anticipated Discharge Disposition: Skilled Nursing Care Facility Anticipated Discharge Timeframe: when bed available
[2019-12-28] MEDS: TAMSULOSIN HCL 0.4 MG CAP.SR.24H PO SCH (17:10)
[2019-12-28] MEDS: ATORVASTATIN CALCIUM 40 MG TABLET PO SCH (23:18)
[2019-12-29] MEDS ORDERED: IPRATROPIUM/ALBUTEROL 0.5-2.5 MG/3 ML AMPUL NEB PRN (07:33)
--- NOTE | 2019-12-29 09:30 | PDOC PROGRESS REPORT ---
Subjective Progress Note for:: 12/29/19 Subjective:: Mr. Arroyo is a 79-year-old male with a history of CAD status post CABG x4, CHF, right nephrectomy, ureteral carcinoma, dementia, who was admitted to ICU for DKA. DKA has resolved and patient transferred to floor for further management. 12/22/2019. No acute events overnight. Saw patient this morning, currently resting in bed in no apparent distress, alert and oriented x1, pleasantly confused, no baseline available, cooperative with physical examination, denies any fever, chills, nausea, vomiting, diarrhea, constipation or any urinary symptoms. 12/23/2019. No acute events overnight. Saw patient this morning resting in bed in no apparent distress, unfortunate patient is still confused and does not follow two-step, alert and oriented only x1, does not answers questions appropriately. Apparently patient lives with his who seems to have some type of dementia as per primary nurse who saw her yesterday, I did call her left a message but she has not returned my call, Dr. Ndiaye their son who states that he is not diabetic renal follow-up in his care as his parents make their own decisions, but is stating that at baseline patient has dementia has not confused but whenever her sugar is not under control it gets worse, he would like both of his parents to be placed at a prison however he is not the primary decision maker. He would like help to see if he can gain their guardianship. I have talked to discharge planners to provide him with some guidance if possible. Meanwhile will try to send patient to short-term rehab. 12/24/2019. Yesterday evening patient was being aggressive towards nursing staff, trying to pull his lines, had to be started on soft two-point restraints, 1 dose of Haldol was given with significant improvement of his behavior, patient was also given 25 mg Seroquel p.o. last night this morning patient is more alert and engaging in conversation, he is oriented x2, does not know why he is in the hospital, does not seem to be in apparent distress, denies any fever, chills, nausea, vomiting. 12/25/2019. No acute events overnight. Since being started on Seroquel patient has remarkable improvement of his aggressive behavior and agitation however still very anxious to leave home, he is off of his soft restraints. Patient is alert and oriented and interactive and answering questions appropriately, does not remember that he was in ICU, had a lengthy conversation with him regarding my concern sending him back home as he seems like he is not safe for him to go home now, patient is very hesitant but agreed to, short-term rehab for now. Patient is very concerned about his insulin pump and would like to follow-up with his herpetology teacher I have assured him that when he is in rehab he will be able to keep his appointments with his physicians. Discharge planning has been consulted and patient is pending transfer to SNF 12/26/2019. No acute events overnight. Patient behavior has improved however still tried to get out of bed once a while, alert and oriented and cooperative with physical examination, denies any fever, chills, nausea, vomiting. Pending to be transferred to SNF. 12/27/2019. No acute events overnight. Pending transfer to rehab. 12/28/2019. Yesterday patient was noted to be confused EEG was done which was unremarkable and bladder scan showed urinary retention, patient again had a s traight better night, this morning at baseline alert and oriented and enjoying his breakfast, does not remember that he was confused yesterday. Was notified that he is retaining urine, he has agreed to allow support of indwelling Lyane catheter. Denies any fever, chills, nausea, vomiting. Pending transfer. 12/29/2019. Patient was pending transfer to rehab and screening test was done for code which unfortunately has become positive, saw patient this morning resting comfortably. No apparent distress, alert and oriented and understand that he is covered positive, he was told that he will be in the hospital for couple more days just for bservation, agrees with plan, denies any fever, chills, nausea, vomiting, diarrhea, constipation or any urinary symptoms. Reason For Visit: DKA Physical Exam Vital Signs: Temp Pulse Resp BP Pulse Ox 97.5 F 98 20 120/70 91 L 12/29/19 08:06 12/29/19 08:06 12/29/19 08:06 12/29/19 08:06 12/29/19 08:06 Intake & Output 12/28/19 12/29/19 12/30/19 06:59 06:59 06:59 Intake Total 740 1460 Output Total 1125 1530 Balance -385 -70 Weight 83.6 kg 83.6 kg Results Laboratory Results: 12/23/19 11:03 12/27/19 05:19 Impressions: Chest X-Ray 12/20/19 18:10 IMPRESSION: NO ACUTE RADIOGRAPHIC FINDING IN THE CHEST. Head CT 12/22/19 00:00 IMPRESSION: CHRONIC CHANGES OF ATROPHY AND MICROVASCULAR ISCHEMIA. NO ACUTE PROCESS. EVIDENCE OF ACUTE STROKE: NO. Assessment and Plan - Diagnosis (1) COVID-19 virus detected Is this a current diagnosis for this admission?: Yes Plan: Not sure if patient was exposed here in the hospital as outpatient. Patient is pretty much asymptomatic and at his baseline. We will start on azithromycin, dexamethasone, already on rivaroxaban, zinc sulfate, duo nebs, supplemental oxygen, contact isolation. (2) Acute metabolic encephalopathy Is this a current diagnosis for this admission?: Yes Plan: Resolved. Patient is alert and oriented x3. Answering question appropriately. Does not not not remember how he got to the hospital and was in ICU does not seem to have an understanding of his underlying medical condition. Scored 17 on Mini-Mental Status Examination. As per son patient has dementia at baseline is confused most of the time which gets worse when his sugar is out of control. As per son patient and make their own medical decisions but he is concerned that they are not safe place to self and would like to get their guardianship. Patient has agreed to be transferred to short-term rehab. Discharge planning has been consulted. Afebrile. SPO2 WNL on RA. WBC WNL. Electrolytes WNL. TSH free T4 and T3 renal WNL. CT head negative for any acute stroke. B12 folate acid WNL. VDRL nonreactive. Continue Seroquel. Continue diabetic management, correct electrolytes, monitor vitals. (3) Dementia Qualifiers: Dementia type: Alzheimer's disease Alzheimer's disease onset: late-onset Dementia behavioral disturbance: with behavioral disturbance Qualified Code(s): G30.1 - Alzheimer's disease with late onset; F02.81 - Dementia in other diseases classified elsewhere with behavioral disturbance Is this a current diagnosis for this admission?: Yes Plan: Patient is alert and oriented x3. Moderate dementia. Scored 17 on Mini-Mental Status Examination. Baseline dementia as per son. Moderate improvement aggressive behavior and agitation with Seroquel. Continue supportive measures and Seroquel. Outpatient PCP and neurology follow-up. (4) Diabetes mellitus Qualifiers: Diabetes mellitus type: type 2 Chronic kidney disease stage: stage 3 (moderate) Is this a current diagnosis for this admission?: Yes Plan: Uncontrolled. Improving. Hemoglobin A1c 7 8%. Presented with DKA. Continue diabetic diet, sliding scale, correctional insulin and basal insulin. Accu-Chek, hypoglycemia protocol. (5) Acute on chronic renal failure Qualifiers: Chronic kidney disease stage: stage 3 (moderate) Is this a current diagnosis for this admission?: Yes Plan: Resolved. Back to baseline. 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 Prerenal likely due to severe dehydration caused by DKA. Monitor electrolytes, replete as needed, monitor volume status, avoid nephrotoxic meds. (6) CAD (coronary artery disease) Qualifiers: Coronary Disease-Associated Artery/Lesion type: unspecified vessel or lesion type Associated angina: without angina Is this a current diagnosis for this admission?: Yes Plan: History of CABG. Denies any anginal symptoms. Continue beta-blockers, ARB, antiplatelets and statins. (7) Hypertension Is this a current diagnosis for this admission?: Yes Plan: Not optimized. Resume home meds. Adjust meds as needed. PRN IV hydralazine and metoprolol. Outpatient PCP follow-up. (8) DKA (diabetic ketoacidoses) Qualifiers: Diabetes mellitus type: type 2 Diabetes mellitus complication detail: with coma Qualified Code(s): E11.11 - Type 2 diabetes mellitus with ketoacidosis with coma Is this a current diagnosis for this admission?: Yes Plan: Resolved. Initially was transferred to ICU. Was started on insulin drip. Currently anion gap WNL. - Time Time Spent with patient: 25-34 minutes Medications reviewed and adjusted accordingly: Yes Anticipated Discharge Disposition: Senior Living Facility Anticipated Discharge Timeframe: when bed available
[2019-12-29] MEDS: RIVAROXABAN 10 MG TABLET PO SCH (09:40)
[2019-12-29] MEDS: LOSARTAN POTASSIUM 50 MG TABLET PO SCH (09:40)
[2019-12-29] MEDS: CALCIUM CARBONATE 600 MG TABLET PO SCH ×2 (09:40→18:09)
[2019-12-29] MEDS: ZINC SULFATE 220 MG CAPSULE PO SCH (09:41)
[2019-12-29] MEDS: INSULIN LISPRO 100 UNIT/ML 3 ML VIAL SUBCUT SCH ×7 (09:41→23:19)
[2019-12-29] MEDS: POTASSIUM CHLORIDE 10 MEQ TABLET.ER PO SCH (09:41)
[2019-12-29] MEDS: MAGNESIUM OXIDE 400 MG TABLET PO SCH (09:41)
[2019-12-29] MEDS: INSULIN GLARGINE,HUM.REC.ANLOG 1,000 UNIT/10 ML VIAL SUBCUT SCH (09:44)
[2019-12-29] MEDS: QUETIAPINE FUMARATE 25 MG TABLET PO SCH ×2 (11:41→21:11)
[2019-12-29] MEDS: TORSEMIDE 20 MG TABLET PO SCH (11:41)
[2019-12-29] MEDS: MULTIVITAMIN TABLET PO SCH (11:41)
[2019-12-29] MEDS: DEXAMETHASONE SOD PHOSPHATE INJ 4 MG/1 ML VIAL IV SCH ×3 (11:45→21:11)
[2019-12-29] MEDS: AZITHROMYCIN 500 MG in DEXTROSE 5%-WATER 250 ML IV SCH (11:46)
[2019-12-29] MEDS: TAMSULOSIN HCL 0.4 MG CAP.SR.24H PO SCH (18:09)
[2019-12-29] MEDS: ATORVASTATIN CALCIUM 40 MG TABLET PO SCH (21:12)
[2019-12-30] MEDS: DEXAMETHASONE SOD PHOSPHATE INJ 4 MG/1 ML VIAL IV SCH ×3 (05:13→21:54)
[2019-12-30] MEDS: QUETIAPINE FUMARATE 25 MG TABLET PO SCH ×2 (08:30→21:54)
[2019-12-30] MEDS: INSULIN LISPRO 100 UNIT/ML 3 ML VIAL SUBCUT SCH ×7 (08:30→21:54)
[2019-12-30] MEDS: CALCIUM CARBONATE 600 MG TABLET PO SCH ×2 (10:47→17:25)
[2019-12-30] MEDS: ZINC SULFATE 220 MG CAPSULE PO SCH (10:47)
[2019-12-30] MEDS: LOSARTAN POTASSIUM 50 MG TABLET PO SCH (10:47)
[2019-12-30] MEDS: RIVAROXABAN 10 MG TABLET PO SCH (10:47)
[2019-12-30] MEDS: POTASSIUM CHLORIDE 10 MEQ TABLET.ER PO SCH (10:47)
[2019-12-30] MEDS: MAGNESIUM OXIDE 400 MG TABLET PO SCH (10:48)
[2019-12-30] MEDS: INSULIN GLARGINE,HUM.REC.ANLOG 1,000 UNIT/10 ML VIAL SUBCUT SCH (10:48)
[2019-12-30] MEDS: TORSEMIDE 20 MG TABLET PO SCH (10:48)
[2019-12-30] MEDS: AZITHROMYCIN 500 MG in DEXTROSE 5%-WATER 250 ML IV SCH (10:48)
--- NOTE | 2019-12-30 11:31 | PDOC PROGRESS REPORT ---
Subjective Progress Note for:: 12/30/19 Subjective:: Mr. Arroyo is a 79-year-old male with a history of CAD status post CABG x4, CHF, right nephrectomy, ureteral carcinoma, dementia, who was admitted to ICU for DKA. DKA has resolved and patient transferred to floor for further management. 12/22/2019. No acute events overnight. Saw patient this morning, currently resting in bed in no apparent distress, alert and oriented x1, pleasantly confused, no baseline available, cooperative with physical examination, denies any fever, chills, nausea, vomiting, diarrhea, constipation or any urinary symptoms. 12/23/2019. No acute events overnight. Saw patient this morning resting in bed in no apparent distress, unfortunate patient is still confused and does not follow two-step, alert and oriented only x1, does not answers questions appropriately. Apparently patient lives with his who seems to have some type of dementia as per primary nurse who saw her yesterday, I did call her left a message but she has not returned my call, Dr. Ndiaye their son who states that he is not diabetic renal follow-up in his care as his parents make their own decisions, but is stating that at baseline patient has dementia has not confused but whenever her sugar is not under control it gets worse, he would like both of his parents to be placed at a halfway however he is not the primary decision maker. He would like help to see if he can gain their guardianship. I have talked to discharge planners to provide him with some guidance if possible. Meanwhile will try to send patient to short-term rehab. 12/24/2019. Yesterday evening patient was being aggressive towards nursing staff, trying to pull his lines, had to be started on soft two-point restraints, 1 dose of Haldol was given with significant improvement of his behavior, patient was also given 25 mg Seroquel p.o. last night this morning patient is more alert and engaging in conversation, he is oriented x2, does not know why he is in the hospital, does not seem to be in apparent distress, denies any fever, chills, nausea, vomiting. 12/25/2019. No acute events overnight. Since being started on Seroquel patient has remarkable improvement of his aggressive behavior and agitation however still very anxious to leave home, he is off of his soft restraints. Patient is alert and oriented and interactive and answering questions appropriately, does not remember that he was in ICU, had a lengthy conversation with him regarding my concern sending him back home as he seems like he is not safe for him to go home now, patient is very hesitant but agreed to, short-term rehab for now. 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 Discharge planning has been consulted and patient is pending transfer to SNF 12/26/2019. No acute events overnight. Patient behavior has improved however still tried to get out of bed once a while, alert and oriented and cooperative with physical examination, denies any fever, chills, nausea, vomiting. Pending to be transferred to SNF. 12/27/2019. No acute events overnight. Pending transfer to rehab. 12/28/2019. Yesterday patient was noted to be confused EEG was done which was unremarkable and bladder scan showed urinary retention, patient again had a s traight better night, this morning at baseline alert and oriented and enjoying his breakfast, does not remember that he was confused yesterday. Was notified that he is retaining urine, he has agreed to allow support of indwelling Layne catheter. Denies any fever, chills, nausea, vomiting. Pending transfer. 12/29/2019. Patient was pending transfer to rehab and screening test was done for code which unfortunately has become positive, saw patient this morning resting comfortably. No apparent distress, alert and oriented and understand that he is covered positive, he was told that he will be in the hospital for couple more days just for bservation, agrees with plan, denies any fever, chills, nausea, vomiting, diarrhea, constipation or any urinary symptoms. 12/30/2019. No acute events overnight. Patient comfortable resting in no apparent distress, alert and oriented, cooperative with physical examination, just finished breakfast, inquiring about his COVID prognosis, denies any fever, chills, nausea, vomiting. Reason For Visit: DKA Physical Exam Vital Signs: Temp Pulse Resp BP Pulse Ox 97.5 F 94 18 144/66 H 96 12/30/19 08:20 12/30/19 08:20 12/30/19 08:20 12/30/19 08:20 12/30/19 08:20 Intake & Output 12/29/19 12/30/19 12/31/19 06:59 06:59 06:59 Intake Total 1460 1027 Output Total 1530 1220 Balance -70 -1633 Weight 83.6 kg 84.2 kg General appearance: PRESENT: no acute distress, well-developed, well-nourished Head exam: PRESENT: atraumatic, normocephalic Respiratory exam: PRESENT: clear to auscultation malcom. ABSENT: rales, rhonchi, wheezes Cardiovascular exam: PRESENT: RRR. ABSENT: diastolic murmur, rubs, systolic murmur Neurological exam: PRESENT: alert, awake, oriented to person, CN II-XII grossly intact. ABSENT: motor sensory deficit Results Laboratory Results: 12/23/19 11:03 12/27/19 05:19 Impressions: Chest X-Ray 12/20/19 18:10 IMPRESSION: NO ACUTE RADIOGRAPHIC FINDING IN THE CHEST. Head CT 12/22/19 00:00 IMPRESSION: CHRONIC CHANGES OF ATROPHY AND MICROVASCULAR ISCHEMIA. NO ACUTE PROCESS. EVIDENCE OF ACUTE STROKE: NO. Assessment and Plan - Diagnosis (1) COVID-19 virus detected Is this a current diagnosis for this admission?: Yes Plan: Not sure if patient was exposed here in the hospital as outpatient. Patient is pretty much asymptomatic and at his baseline. Due to IV antibiotics. Day 2 IV azithromycin. Day 2 IV ceftriaxone. Day 2 IV dexamethasone. Already on rivaroxaban. Continue empiric IV antibiotics, steroids, anticoagulants PRN duo nebs supplemental oxygen,zinc sulfate, duo nebs, contact isolation. (2) Acute metabolic encephalopathy Is this a current diagnosis for this admission?: Yes Plan: Resolved. Patient is alert and oriented x3. Answering question appropriately. Does not not not remember how he got to the hospital and was in ICU does not seem to have an understanding of his underlying medical condition. Scored 17 on Mini-Mental Status Examination. As per son patient has dementia at baseline is confused most of the time which gets worse when his sugar is out of control. As per son patient and make their own medical decisions but he is concerned that they are not safe place to self and would like to get their guardianship. Patient has agreed to be transferred to short-term rehab. Discharge planning has been consulted. Afebrile. SPO2 WNL on RA. WBC WNL. Electrolytes WNL. TSH free T4 and T3 renal WNL. CT head negative for any acute stroke. B12 folate acid WNL. VDRL nonreactive. Continue Seroquel. Continue diabetic management, correct electrolytes, monitor vitals. (3) Dementia Qualifiers: Dementia type: Alzheimer's disease Alzheimer's disease onset: late-onset Dementia behavioral disturbance: with behavioral disturbance Qualified C ode(s): G30.1 - Alzheimer's disease with late onset; F02.81 - Dementia in other diseases classified elsewhere with behavioral disturbance Is this a current diagnosis for this admission?: Yes Plan: Patient is alert and oriented x3. Moderate dementia. Scored 17 on Mini-Mental Status Examination. Baseline dementia as per son. Moderate improvement aggressive behavior and agitation with Seroquel. Continue supportive measures and Seroquel. Outpatient PCP and neurology follow-up. (4) Diabetes mellitus Qualifiers: Diabetes mellitus type: type 2 Chronic kidney disease stage: stage 3 (moderate) Is this a current diagnosis for this admission?: Yes Plan: Uncontrolled. Very labile blood sugars. Needs daily insulin dosing adjustments. Hemoglobin A1c 7 8%. Presented with DKA. Continue diabetic diet, sliding scale, correctional insulin and basal insulin. Accu-Chek, hypoglycemia protocol. (5) Acute on chronic renal failure Qualifiers: Chronic kidney disease stage: stage 3 (moderate) Is this a current diagnosis for this admission?: Yes Plan: Resolved. Back to baseline. 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 Prerenal likely due to severe dehydration caused by DKA. Monitor electrolytes, replete as needed, monitor volume status, avoid nephrotoxic meds. (6) CAD (coronary artery disease) Qualifiers: Coronary Disease-Associated Artery/Lesion type: unspecified vessel or lesion type Associated angina: without angina Is this a current diagnosis for this admission?: Yes Plan: History of CABG. Denies any anginal symptoms. Continue beta-blockers, ARB, antiplatelets and statins. (7) Hypertension Is this a current diagnosis for this admission?: Yes Plan: Not optimized. Resume home meds. Adjust meds as needed. PRN IV hydralazine and metoprolol. Outpatient PCP follow-up. (8) DKA (diabetic ketoacidoses) Qualifiers: Diabetes mellitus type: type 2 Diabetes mellitus complication detail: with coma Qualified Code(s): E11.11 - Type 2 diabetes mellitus with ketoacidosis with coma Is this a current diagnosis for this admission?: Yes Plan: Resolved. Initially was transferred to ICU. Was started on insulin drip. Currently anion gap WNL. - Time Time Spent with patient: 15-24 minutes Medications reviewed and adjusted accordingly: Yes Anticipated Discharge Disposition: [facility] Facility Anticipated Discharge Timeframe: when bed available
[2019-12-30] MEDS: MULTIVITAMIN TABLET PO SCH (13:20)
[2019-12-30] MEDS: TAMSULOSIN HCL 0.4 MG CAP.SR.24H PO SCH (17:25)
[2019-12-30] MEDS: ATORVASTATIN CALCIUM 40 MG TABLET PO SCH (21:54)
[2019-12-31] MEDS: DEXAMETHASONE SOD PHOSPHATE INJ 4 MG/1 ML VIAL IV SCH ×3 (05:10→22:01)
[2019-12-31 06:18] LABS: HEMATOCRIT 39.2 % (37.9-51.0); HEMOGLOBIN 13.6 g/dL (13.5-17.0); MEAN CORPUSCULAR HEMOGLOBIN 32.5 pg (27.0-33.4); MEAN CORPUSCULAR HGB CONC 34.7 g/dL (32.0-36.0); MEAN CORPUSCULAR VOLUME 94 fl (80-97); PLATELET COUNT 217 10^3/uL (150-450); RED BLOOD COUNT 4.18 10^6/uL (4.35-5.55); RED CELL DISTRIBUTION WIDTH 14.4 % (11.5-14.0); WHITE BLOOD COUNT 9.8 10^3/uL (4.0-10.5)
[2019-12-31 06:31] LABS: ALBUMIN 3.2 g/dL (3.5-5.0); ALKALINE PHOSPHATASE 75 U/L (38-126); ASPARTATE AMINO TRANSFERASE 27 U/L (17-59); BILIRUBIN,DIRECT 0.1 mg/dL (0.0-0.4); BILIRUBIN,TOTAL 0.7 mg/dL (0.2-1.3); BLOOD UREA NITROGEN 37 mg/dL (7-20); CALCIUM 8.9 mg/dL (8.4-10.2); GLUCOSE 128 mg/dL (75-110); POTASSIUM 4.7 mmol/L (3.6-5.0); TOTAL PROTEIN 5.9 g/dL (6.3-8.2)
[2019-12-31 06:37] LABS: ANION GAP 5 (5-19); CARBON DIOXIDE 30 mmol/L (22-30); CHLORIDE 97 mmol/L (98-107)
[2019-12-31] MEDS: INSULIN LISPRO 100 UNIT/ML 3 ML VIAL SUBCUT SCH ×7 (09:07→22:00)
[2019-12-31] MEDS: LOSARTAN POTASSIUM 50 MG TABLET PO SCH (10:36)
[2019-12-31] MEDS: QUETIAPINE FUMARATE 25 MG TABLET PO SCH ×2 (10:36→22:01)
[2019-12-31] MEDS: CALCIUM CARBONATE 600 MG TABLET PO SCH ×2 (10:36→17:00)
[2019-12-31] MEDS: TORSEMIDE 20 MG TABLET PO SCH (10:37)
[2019-12-31] MEDS: POTASSIUM CHLORIDE 10 MEQ TABLET.ER PO SCH (10:37)
[2019-12-31] MEDS: MAGNESIUM OXIDE 400 MG TABLET PO SCH (10:38)
[2019-12-31] MEDS: INSULIN GLARGINE,HUM.REC.ANLOG 1,000 UNIT/10 ML VIAL SUBCUT SCH (10:38)
[2019-12-31] MEDS: ZINC SULFATE 220 MG CAPSULE PO SCH (10:39)
[2019-12-31] MEDS: AZITHROMYCIN 500 MG in DEXTROSE 5%-WATER 250 ML IV SCH (10:39)
[2019-12-31] MEDS: RIVAROXABAN 10 MG TABLET PO SCH (10:39)
--- NOTE | 2019-12-31 10:44 | PDOC PROGRESS REPORT ---
Subjective Progress Note for:: 12/31/19 Subjective:: Mr. Arroyo is a 79-year-old male with a history of CAD status post CABG x4, CHF, right nephrectomy, ureteral carcinoma, dementia, who was admitted to ICU for DKA. DKA has resolved and patient transferred to floor for further management. 12/22/2019. No acute events overnight. Saw patient this morning, currently resting in bed in no apparent distress, alert and oriented x1, pleasantly confused, no baseline available, cooperative with physical examination, denies any fever, chills, nausea, vomiting, diarrhea, constipation or any urinary symptoms. 12/23/2019. No acute events overnight. Saw patient this morning resting in bed in no apparent distress, unfortunate patient is still confused and does not follow two-step, alert and oriented only x1, does not answers questions appropriately. Apparently patient lives with his who seems to have some type of dementia as per primary nurse who saw her yesterday, I did call her left a message but she has not returned my call, Dr. Ndiaye their son who states that he is not diabetic renal follow-up in his care as his parents make their own decisions, but is stating that at baseline patient has dementia has not confused but whenever her sugar is not under control it gets worse, he would like both of his parents to be placed at a [facility] however he is not the primary decision maker. He would like help to see if he can gain their guardianship. I have talked to discharge planners to provide him with some guidance if possible. Meanwhile will try to send patient to short-term rehab. 12/24/2019. Yesterday evening patient was being aggressive towards nursing staff, trying to pull his lines, had to be started on soft two-point restraints, 1 dose of Haldol was given with significant improvement of his behavior, patient was also given 25 mg Seroquel p.o. last night this morning patient is more alert and engaging in conversation, he is oriented x2, does not know why he is in the hospital, does not seem to be in apparent distress, denies any fever, chills, nausea, vomiting. 12/25/2019. No acute events overnight. Since being started on Seroquel patient has remarkable improvement of his aggressive behavior and agitation however still very anxious to leave home, he is off of his soft restraints. Patient is alert and oriented and interactive and answering questions appropriately, does not remember that he was in ICU, had a lengthy conversation with him regarding my concern sending him back home as he seems like he is not safe for him to go home now, patient is very hesitant but agreed to, short-term rehab for now. Patient is very concerned about his insulin pump and would like to follow-up with his negative notcher I have assured him that when he is in rehab he will be able to keep his appointments with his physicians. Discharge planning has been consulted and patient is pending transfer to SNF 12/26/2019. No acute events overnight. Patient behavior has improved however still tried to get out of bed once a while, alert and oriented and cooperative with physical examination, denies any fever, chills, nausea, vomiting. Pending to be transferred to SNF. 12/27/2019. No acute events overnight. Pending transfer to rehab. 12/28/2019. Yesterday patient was noted to be confused EEG was done which was unremarkable and bladder scan showed urinary retention, patient again had a s traight better night, this morning at baseline alert and oriented and enjoying his breakfast, does not remember that he was confused yesterday. Was notified that he is retaining urine, he has agreed to allow support of indwelling Layne catheter. Denies any fever, chills, nausea, vomiting. Pending transfer. 12/29/2019. Patient was pending transfer to rehab and screening test was done for code which unfortunately has become positive, saw patient this morning resting comfortably. No apparent distress, alert and oriented and understand that he is covered positive, he was told that he will be in the hospital for couple more days just for bservation, agrees with plan, denies any fever, chills, nausea, vomiting, diarrhea, constipation or any urinary symptoms. 12/30/2019. No acute events overnight. Patient comfortable resting in no apparent distress, alert and oriented, cooperative with physical examination, just finished breakfast, inquiring about his COVID prognosis, denies any fever, chills, nausea, vomiting. 12/31/2019. No acute events overnight. Comfortably sitting up in distress, patient is very anxious to be discharged to rehab, inquiring when he can go to rehab, patient was informed that he has Covid and it is difficult to find him a place, but we are trying, patient voiced understanding but is still very anxious to leave, denies any fever, chills, nausea, vomiting, diarrhea, constipation or any urinary symptoms. Alert and oriented and cooperative with physical exami [facility]. Reason For Visit: DKA Physical Exam Vital Signs: Temp Pulse Resp BP Pulse Ox 97.4 F 82 17 111/54 L 94 12/31/19 03:06 12/31/19 07:00 12/31/19 03:06 12/31/19 03:06 12/31/19 03:06 Intake & Output 12/30/19 12/31/19 01/01/20 06:59 06:59 06:59 Intake Total 1027 730 Output Total 2660 1725 Balance -1633 -995 Weight 84.2 kg 83.8 kg General appearance: PRESENT: no acute distress, well-developed, well-nourished Head exam: PRESENT: atraumatic, normocephalic Respiratory exam: PRESENT: clear to auscultation malcom. ABSENT: rales, rhonchi, wheezes GI/Abdominal exam: PRESENT: normal bowel sounds, soft. ABSENT: distended, guarding, mass, organolmegaly, rebound, tenderness Neurological exam: PRESENT: alert, awake, oriented to person, oriented to place, CN II-XII grossly intact. ABSENT: motor sensory deficit Results Laboratory Results: 12/31/19 05:04 12/31/19 05:04 12/31/19 12/31/19 05:04 05:04 WBC 9.8 RBC 4.18 L Hgb 13.6 Hct 39.2 MCV 94 MCH 32.5 MCHC 34.7 RDW 14.4 H Plt Count 217 Sodium 131.5 L Potassium 4.7 Chloride 97 L Carbon Dioxide 30 Anion Gap 5 BUN 37 H Creatinine 1.08 Est GFR ( Amer) > 60 Glucose 128 H Calcium 8.9 Magnesium 2.3 Total Bilirubin 0.7 AST 27 Alkaline Phosphatase 75 Total Protein 5.9 L Albumin 3.2 L Impressions: Chest X-Ray 12/20/19 18:10 IMPRESSION: NO ACUTE RADIOGRAPHIC FINDING IN THE CHEST. Head CT 12/22/19 00:00 IMPRESSION: CHRONIC CHANGES OF ATROPHY AND MICROVASCULAR ISCHEMIA. NO ACUTE PROCESS. EVIDENCE OF ACUTE STROKE: NO. Assessment and Plan - Diagnosis (1) COVID-19 virus detected Is this a current diagnosis for this admission?: Yes Plan: Not sure if patient was exposed here in the hospital as outpatient. Patient is pretty much asymptomatic and at his baseline. SPO2 WNL on RA. WBC WNL. Afebrile. Day 3 IV antibiotics. Day 3 IV azithromycin. Day 3 IV ceftriaxone. Day 3 IV dexamethasone. Already on rivaroxaban. Continue empiric IV antibiotics, steroids, anticoagulants PRN duo nebs supplemental oxygen,zinc sulfate, duo nebs, contact isolation. (2) Acute metabolic encephalopathy Is this a current diagnosis for this admission?: Yes Plan: Resolved. Patient is alert and oriented x3. Answering question appropriately. Does not not not remember how he got to the hospital and was in ICU does not seem to have an understanding of his underlying medical condition. Scored 17 on Mini-Mental Status Examination. As per son patient has dementia at baseline is confused most of the time which gets worse when his sugar is out of control. As per son patient and make their own medical decisions but he is concerned that they are not safe place to self and would like to get their guardianship. Patient has agreed to be transferred to short-term rehab. Discharge planning has been consulted. Afebrile. SPO2 WNL on RA. WBC WNL. Electrolytes WNL. TSH free T4 and T3 renal WNL. CT head negative for any acute stroke. B12 folate acid WNL. VDRL nonreactive. Continue Seroquel. Continue diabetic management, correct electrolytes, monitor vitals. (3) Dementia Qualifiers: Dementia type: Alzheimer's disease Alzheimer's disease onset: late-onset Dementia behavioral disturbance: with behavioral disturbance Qualified Code(s): G30.1 - Alzheimer's disease with late onset; F02.81 - Dementia in other diseases classified elsewhere with behavioral disturbance Is this a current diagnosis for this admission?: Yes Plan: Patient is alert and oriented x3. Moderate dementia. Scored 17 on Mini-Mental Status Examination. Baseline dementia as per son. Moderate improvement aggressive behavior and agitation with Seroquel. Continue supportive measures and Seroquel. Outpatient PCP and neurology follow-up. (4) Diabetes mellitus Qualifiers: Diabetes mellitus type: type 2 Chronic kidney disease stage: stage 3 (moderate) Is this a current diagnosis for this admission?: Yes Plan: Uncontrolled. Very labile blood sugars. Needs daily insulin dosing adjustments. Hemoglobin A1c 7 8%. Presented with DKA. Continue diabetic diet, sliding scale, correctional insulin and basal insulin. Accu-Chek, hypoglycemia protocol. (5) Acute on chronic renal failure Qualifiers: Chronic kidney disease stage: stage 3 (moderate) Is this a current diagnosis for this admission?: Yes Plan: Resolved. Back to baseline. 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 Prerenal likely due to severe dehydration caused by DKA. Monitor electrolytes, replete as needed, monitor volume status, avoid nephrotoxic meds. (6) CAD (coronary artery disease) Qualifiers: Coronary Disease-Associated Artery/Lesion type: unspecified vessel or lesion type Associated angina: without angina Is this a current diagnosis for this admission?: Yes Plan: History of CABG. Denies any anginal symptoms. Continue beta-blockers, ARB, antiplatelets and statins. (7) Hypertension Is this a current diagnosis for this admission?: Yes Plan: Not optimized. Resume home meds. Adjust meds as needed. PRN IV hydralazine and metoprolol. Outpatient PCP follow-up. (8) DKA (diabetic ketoacidoses) Qualifiers: Diabetes mellitus type: type 2 Diabetes mellitus complication detail: with coma Qualified Code(s): E11.11 - Type 2 diabetes mellitus with ketoacidosis with coma Is this a current diagnosis for this admission?: Yes Plan: Resolved. Initially was transferred to ICU. Was started on insulin drip. Currently anion gap WNL. - Time Time Spent with patient: 25-34 minutes Medications reviewed and adjusted accordingly: Yes Anticipated [facility]charge [facility]position[facility] Anticipated Discharge Timeframe: when bed available
[2019-12-31] MEDS: MULTIVITAMIN TABLET PO SCH (12:50)
[2019-12-31] MEDS ORDERED: HALOPERIDOL LACTATE INJ 5 MG/1 ML VIAL ONE (12:56)
[2019-12-31] MEDS ORDERED: HALOPERIDOL LACTATE INJ 5 MG/1 ML VIAL IV ONE (14:00)
[2019-12-31] MEDS ORDERED: METOPROLOL TARTRATE PF/INJ 5 MG/5 ML SDV IV PRN (16:27)
[2019-12-31] MEDS: TAMSULOSIN HCL 0.4 MG CAP.SR.24H PO SCH (17:01)
[2019-12-31] MEDS ORDERED: INSULIN GLARGINE,HUM.REC.ANLOG 1,000 UNIT/10 ML VIAL (PYX) SUBCUT ONE (19:00)
[2019-12-31] MEDS: ATORVASTATIN CALCIUM 40 MG TABLET PO SCH (22:01)
[2020-01-01] MEDS: DEXAMETHASONE SOD PHOSPHATE INJ 4 MG/1 ML VIAL IV SCH ×3 (05:19→22:35)
[2020-01-01] MEDS: INSULIN LISPRO 100 UNIT/ML 3 ML VIAL SUBCUT SCH ×7 (08:51→22:34)
[2020-01-01] MEDS: POTASSIUM CHLORIDE 10 MEQ TABLET.ER PO SCH (09:20)
[2020-01-01] MEDS: ZINC SULFATE 220 MG CAPSULE PO SCH (09:20)
[2020-01-01] MEDS: QUETIAPINE FUMARATE 25 MG TABLET PO SCH ×2 (09:20→22:35)
[2020-01-01] MEDS: AZITHROMYCIN 250 MG TABLET PO SCH (09:20)
[2020-01-01] MEDS: CALCIUM CARBONATE 600 MG TABLET PO SCH ×2 (09:20→17:48)
[2020-01-01] MEDS: RIVAROXABAN 10 MG TABLET PO SCH (09:20)
[2020-01-01] MEDS: TORSEMIDE 20 MG TABLET PO SCH (09:21)
[2020-01-01] MEDS: LOSARTAN POTASSIUM 50 MG TABLET PO SCH (09:21)
[2020-01-01] MEDS: MAGNESIUM OXIDE 400 MG TABLET PO SCH (09:22)
[2020-01-01] MEDS: INSULIN GLARGINE,HUM.REC.ANLOG 1,000 UNIT/10 ML VIAL SUBCUT SCH (09:22)
--- NOTE | 2020-01-01 11:40 | PDOC PROGRESS REPORT ---
Subjective Progress Note for:: 01/01/20 Subjective:: Mr. Arroyo is a 79-year-old male with a history of CAD status post CABG x4, CHF, right nephrectomy, ureteral carcinoma, dementia, who was admitted to ICU for DKA. DKA has resolved and patient transferred to floor for further management. 12/22/2019. No acute events overnight. Saw patient this morning, currently resting in bed in no apparent distress, alert and oriented x1, pleasantly confused, no baseline available, cooperative with physical examination, denies any fever, chills, nausea, vomiting, diarrhea, constipation or any urinary symptoms. 12/23/2019. No acute events overnight. Saw patient this morning resting in bed in no apparent distress, unfortunate patient is still confused and does not follow two-step, alert and oriented only x1, does not answers questions appropriately. Apparently patient lives with his who seems to have some type of dementia as per primary nurse who saw her yesterday, I did call her left a message but she has not returned my call, Dr. Ndiaye their son who states that he is not diabetic renal follow-up in his care as his parents make their own decisions, but is stating that at baseline patient has dementia has not confused but whenever her sugar is not under control it gets worse, he would like both of his parents to be placed at a senior care however he is not the primary decision maker. He would like help to see if he can gain their guardianship. I have talked to discharge planners to provide him with some guidance if possible. Meanwhile will try to send patient to short-term rehab. 12/24/2019. Yesterday evening patient was being aggressive towards nursing staff, trying to pull his lines, had to be started on soft two-point restraints, 1 dose of Haldol was given with significant improvement of his behavior, patient was also given 25 mg Seroquel p.o. last night this morning patient is more alert and engaging in conversation, he is oriented x2, does not know why he is in the hospital, does not seem to be in apparent distress, denies any fever, chills, nausea, vomiting. 12/25/2019. No acute events overnight. Since being started on Seroquel patient has remarkable improvement of his aggressive behavior and agitation however still very anxious to leave home, he is off of his soft restraints. Patient is alert and oriented and interactive and answering questions appropriately, does not remember that he was in ICU, had a lengthy conversation with him regarding my concern sending him back home as he seems like he is not safe for him to go home now, patient is very hesitant but agreed to, short-term rehab for now. Patient is very concerned about his insulin pump and would like to follow-up with his industrial truck driver I have assured him that when he is in rehab he will be able to keep his appointments with his physicians. Discharge planning has been consulted and patient is pending transfer to SNF 12/26/2019. No acute events overnight. Patient behavior has improved however still tried to get out of bed once a while, alert and oriented and cooperative with physical examination, denies any fever, chills, nausea, vomiting. Pending to be transferred to SNF. 12/27/2019. No acute events overnight. Pending transfer to rehab. 12/28/2019. Yesterday patient was noted to be confused EEG was done which was unremarkable and bladder scan showed urinary retention, patient again had a s traight better night, this morning at baseline alert and oriented and enjoying his breakfast, does not remember that he was confused yesterday. Was notified that he is retaining urine, he has agreed to allow support of indwelling Alyne catheter. Denies any fever, chills, nausea, vomiting. Pending transfer. 12/29/2019. Patient was pending transfer to rehab and screening test was done for code which unfortunately has become positive, saw patient this morning resting comfortably. No apparent distress, alert and oriented and understand that he is covered positive, he was told that he will be in the hospital for couple more days just for bservation, agrees with plan, denies any fever, chills, nausea, vomiting, diarrhea, constipation or any urinary symptoms. 12/30/2019. No acute events overnight. Patient comfortable resting in no apparent distress, alert and oriented, cooperative with physical examination, just finished breakfast, inquiring about his COVID prognosis, denies any fever, chills, nausea, vomiting. 12/31/2019. No acute events overnight. Comfortably sitting up in distress, patient is very anxious to be discharged to rehab, inquiring when he can go to rehab, patient was informed that he has Covid and it is difficult to find him a place, but we are trying, patient voiced understanding but is still very anxious to leave, denies any fever, chills, nausea, vomiting, diarrhea, constipation or any urinary symptoms. Alert and oriented and cooperative with physical exami [facility]. 01/01/2020. Unfortunately patient missed his morning dose of Seroquel yesterday and he was very agitated and aggressive, had to be placed on soft restraints, was able to take his Seroquel this evening and this morning patient is comfortable resting in bed no apparent distress, still asking when he can go home. Denies any fever, chills, nausea, vomiting, diarrhea, constipation or any urinary symptoms. Reason For Visit: DKA Physical Exam Vital Signs: Temp Pulse Resp BP Pulse Ox 97.6 F 101 H 20 109/47 L 96 01/01/20 08:09 01/01/20 08:09 01/01/20 08:09 01/01/20 08:09 01/01/20 08:09 Intake & Output 12/31/19 01/01/20 01/02/20 06:59 06:59 06:59 Intake Total 730 100 Output Total 1725 1650 Balance -995 -1550 Weight 83.8 kg 84 kg General appearance: PRESENT: no acute distress, well-developed, well-nourished Head exam: PRESENT: atraumatic, normocephalic Respiratory exam: PRESENT: clear to auscultation malcom. ABSENT: rales, rhonchi, wheezes Cardiovascular exam: PRESENT: RRR. ABSENT: diastolic murmur, rubs, systolic murmur Neurological exam: PRESENT: alert, awake, oriented to person, CN II-XII grossly intact. ABSENT: motor sensory deficit Results Laboratory Results: 12/31/19 05:04 12/31/19 05:04 Impressions: Chest X-Ray 12/20/19 18:10 IMPRESSION: NO ACUTE RADIOGRAPHIC FINDING IN THE CHEST. Head CT 12/22/19 00:00 IMPRESSION: CHRONIC CHANGES OF ATROPHY AND MICROVASCULAR ISCHEMIA. NO ACUTE PROCESS. EVIDENCE OF ACUTE STROKE: NO. Assessment and Plan - Diagnosis (1) COVID-19 virus detected Is this a current diagnosis for this admission?: Yes Plan: Increasing oxygen demand. On 5 L nasal cannula SPO2 WNL. WBC WNL. Afebrile. Not sure if patient was exposed here in the hospital as outpatient. Patient is pretty much asymptomatic and at his baseline. Day 4 IV antibiotics. Day 4 IV azithromycin. Day 4 IV ceftriaxone. Day 4 IV dexamethasone. Already on rivaroxaban. Continue empiric IV antibiotics, steroids, anticoagulants PRN duo nebs supplemental oxygen,zinc sulfate, duo nebs, contact isolation. (2) Acute metabolic encephalopathy Is this a current diagnosis for this admission?: Yes Plan: Resolved. Patient is alert and oriented x3. Answering question appropriately. Does not not not remember how he got to the hospital and was in ICU does not seem to have an understanding of his underlying medical condition. Scored 17 on Mini-Mental Status Examination. As per son patient has dementia at baseline is confused most of the time which gets worse when his sugar is out of control. As per son patient and make their own medical decisions but he is concerned that they are not safe place to self and would like to get their guardianship. Patient has agreed to be transferred to short-term rehab. Discharge planning has been consulted. Afebrile. SPO2 WNL on RA. WBC WNL. Electrolytes WNL. TSH free T4 and T3 renal WNL. CT head negative for any acute stroke. B12 folate acid WNL. VDRL nonreactive. Continue Seroquel. Continue diabetic management, correct electrolytes, monitor vitals. (3) Dementia Qualifiers: Dementia type: Alzheimer's disease Alzheimer's disease onset: late-onset Dementia behavioral disturbance: with behavioral disturbance Qualified Code(s): G30.1 - Alzheimer's disease with late onset; F02.81 - Dementia in other diseases classified elsewhere with behavioral disturbance Is this a current diagnosis for this admission?: Yes Plan: Patient is alert and oriented x3. Moderate dementia. Scored 17 on Mini-Mental Status Examination. Baseline dementia as per son. Moderate improvement aggressive behavior and agitation with Seroquel. Continue supportive measures and Seroquel. Outpatient PCP and neurology follow-up. (4) Diabetes mellitus Qualifiers: Diabetes mellitus type: type 2 Chronic kidney disease stage: stage 3 (mode rate) Is this a current diagnosis for this admission?: Yes Plan: Uncontrolled. Very labile blood sugars. Needs daily insulin dosing adjustments . Hemoglobin A1c 7 8%. Presented with DKA. Continue diabetic diet, sliding scale, correctional insulin and basal insulin. Accu-Chek, hypoglycemia protocol. (5) Acute on chronic renal failure Qualifiers: Chronic kidney disease stage: stage 3 (moderate) Is this a current diagnosis for this admission?: Yes Plan: Resolved. Back to baseline. 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 Prerenal likely due to severe dehydration caused by DKA. Monitor electrolytes, replete as needed, monitor volume status, avoid nephrotoxic meds. (6) CAD (coronary artery disease) Qualifiers: Coronary Disease-Associated Artery/Lesion type: unspecified vessel or lesion type Associated angina: without angina Is this a current diagnosis for this admission?: Yes Plan: History of CABG. Denies any anginal symptoms. Continue beta-blockers, ARB, antiplatelets and statins. (7) Hypertension Is this a current diagnosis for this admission?: Yes Plan: Not optimized. Resume home meds. Adjust meds as needed. PRN IV hydralazine and metoprolol. Outpatient PCP follow-up. (8) DKA (diabetic ketoacidoses) Qualifiers: Diabetes mellitus type: type 2 Diabetes mellitus complication detail: with coma Qualified Code(s): E11.11 - Type 2 diabetes mellitus with ketoacidosis with coma Is this a current diagnosis for this admission?: Yes Plan: Resolved. Initially was transferred to ICU. Was started on insulin drip. Currently anion gap WNL. - Time Time Spent with patient: 25-34 minutes Medications reviewed and adjusted accordingly: Yes Anticipated Discharge Disposition: Detention Facility Anticipated Discharge Timeframe: when bed available
[2020-01-01] MEDS ORDERED: HALOPERIDOL LACTATE INJ 5 MG/1 ML VIAL IV ONE (12:30)
[2020-01-01] MEDS: MULTIVITAMIN TABLET PO SCH (12:30)
[2020-01-01] MEDS: TAMSULOSIN HCL 0.4 MG CAP.SR.24H PO SCH (17:48)
[2020-01-01] MEDS: ATORVASTATIN CALCIUM 40 MG TABLET PO SCH (22:35)
[2020-01-02] MEDS: DEXAMETHASONE SOD PHOSPHATE INJ 4 MG/1 ML VIAL IV SCH (05:36)
[2020-01-02 05:59] LABS: ALBUMIN 2.3 g/dL (3.5-5.0); ALKALINE PHOSPHATASE 57 U/L (38-126); ASPARTATE AMINO TRANSFERASE 25 U/L (17-59); BILIRUBIN,TOTAL 0.6 mg/dL (0.2-1.3); BLOOD UREA NITROGEN 37 mg/dL (7-20); CALCIUM 8.1 mg/dL (8.4-10.2); CARBON DIOXIDE 30 mmol/L (22-30); CHLORIDE 99 mmol/L (98-107); GLUCOSE 168 mg/dL (75-110); POTASSIUM 4.6 mmol/L (3.6-5.0); TOTAL PROTEIN 4.5 g/dL (6.3-8.2)
[2020-01-02 06:05] LABS: ANION GAP 3 (5-19)
[2020-01-02] MEDS: INSULIN LISPRO 100 UNIT/ML 3 ML VIAL SUBCUT SCH ×7 (08:32→23:07)
[2020-01-02] MEDS: QUETIAPINE FUMARATE 25 MG TABLET PO SCH ×2 (08:33→23:05)
[2020-01-02 09:04] LABS: ABSOLUTE LYMPHOCYTES (AUTO) 0.6 10^3/uL (0.5-4.7); ABSOLUTE MONOCYTES (AUTO) 0.2 10^3/uL (0.1-1.4); ABSOLUTE NEUT (AUTO) 6.8 10^3/uL (1.7-8.2); HEMATOCRIT 35.3 % (37.9-51.0); LYMPHOCYTES % (AUTO) 8.2 % (13-45); MEAN CORPUSCULAR HEMOGLOBIN 32.7 pg (27.0-33.4); MEAN CORPUSCULAR VOLUME 96 fl (80-97); MONOCYTES % (AUTO) 2.5 % (3-13); PLATELET COUNT 186 10^3/uL (150-450); RED BLOOD COUNT 3.67 10^6/uL (4.35-5.55); RED CELL DISTRIBUTION WIDTH 14.6 % (11.5-14.0); SEGMENTED NEUTROPHILS % (AUTO) 89.3 % (42-78); TOTAL CELLS COUNTED % (AUTO) 100 %; WHITE BLOOD COUNT 7.6 10^3/uL (4.0-10.5)
[2020-01-02] MEDS: TORSEMIDE 20 MG TABLET PO SCH (09:45)
[2020-01-02] MEDS: LOSARTAN POTASSIUM 50 MG TABLET PO SCH (09:45)
[2020-01-02] MEDS: POTASSIUM CHLORIDE 10 MEQ TABLET.ER PO SCH (09:46)
[2020-01-02] MEDS: RIVAROXABAN 10 MG TABLET PO SCH (09:47)
[2020-01-02] MEDS: MAGNESIUM OXIDE 400 MG TABLET PO SCH (09:47)
[2020-01-02] MEDS: ZINC SULFATE 220 MG CAPSULE PO SCH (09:47)
[2020-01-02] MEDS: AZITHROMYCIN 250 MG TABLET PO SCH (09:48)
[2020-01-02] MEDS: CALCIUM CARBONATE 600 MG TABLET PO SCH ×2 (11:58→17:10)
[2020-01-02] MEDS: INSULIN GLARGINE,HUM.REC.ANLOG 1,000 UNIT/10 ML VIAL SUBCUT SCH (11:59)
[2020-01-02] MEDS: MULTIVITAMIN TABLET PO SCH (12:00)
--- NOTE | 2020-01-02 12:31 | PDOC PROGRESS REPORT ---
Subjective Progress Note for:: 01/02/20 Subjective:: Mr. Arroyo is a 79-year-old male with a history of CAD status post CABG x4, CHF, right nephrectomy, ureteral carcinoma, dementia, who was admitted to ICU for DKA. DKA has resolved and patient transferred to floor for further management. 12/22/2019. No acute events overnight. Saw patient this morning, currently resting in bed in no apparent distress, alert and oriented x1, pleasantly confused, no baseline available, cooperative with physical examination, denies any fever, chills, nausea, vomiting, diarrhea, constipation or any urinary symptoms. 12/23/2019. No acute events overnight. Saw patient this morning resting in bed in no apparent distress, unfortunate patient is still confused and does not follow two-step, alert and oriented only x1, does not answers questions appropriately. Apparently patient lives with his who seems to have some type of dementia as per primary nurse who saw her yesterday, I did call her left a message but she has not returned my call, Dr. Ndiaye their son who states that he is not diabetic renal follow-up in his care as his parents make their own decisions, but is stating that at baseline patient has dementia has not confused but whenever her sugar is not under control it gets worse, he would like both of his parents to be placed at a fpc however he is not the primary decision maker. He would like help to see if he can gain their guardianship. I have talked to discharge planners to provide him with some guidance if possible. Meanwhile will try to send patient to short-term rehab. 12/24/2019. Yesterday evening patient was being aggressive towards nursing staff, trying to pull his lines, had to be started on soft two-point restraints, 1 dose of Haldol was given with significant improvement of his behavior, patient was also given 25 mg Seroquel p.o. last night this morning patient is more alert and engaging in conversation, he is oriented x2, does not know why he is in the hospital, does not seem to be in apparent distress, denies any fever, chills, nausea, vomiting. 12/25/2019. No acute events overnight. Since being started on Seroquel patient has remarkable improvement of his aggressive behavior and agitation however still very anxious to leave home, he is off of his soft restraints. Patient is alert and oriented and interactive and answering questions appropriately, does not remember that he was in ICU, had a lengthy conversation with him regarding my concern sending him back home as he seems like he is not safe for him to go home now, patient is very hesitant but agreed to, short-term rehab for now. Patient is very concerned about his insulin pump and would like to follow-up with his hospital technician I have assured him that when he is in rehab he will be able to keep his appointments with his physicians. Discharge planning has been consulted and patient is pending transfer to SNF 12/26/2019. No acute events overnight. Patient behavior has improved however still tried to get out of bed once a while, alert and oriented and cooperative with physical examination, denies any fever, chills, nausea, vomiting. Pending to be transferred to SNF. 12/27/2019. No acute events overnight. Pending transfer to rehab. 12/28/2019. Yesterday patient was noted to be confused EEG was done which was unremarkable and bladder scan showed urinary retention, patient again had a s traight better night, this morning at baseline alert and oriented and enjoying his breakfast, does not remember that he was confused yesterday. Was notified that he is retaining urine, he has agreed to allow support of indwelling Layne catheter. Denies any fever, chills, nausea, vomiting. Pending transfer. 12/29/2019. Patient was pending transfer to rehab and screening test was done for code which unfortunately has become positive, saw patient this morning resting comfortably. No apparent distress, alert and oriented and understand that he is covered positive, he was told that he will be in the hospital for couple more days just for bservation, agrees with plan, denies any fever, chills, nausea, vomiting, diarrhea, constipation or any urinary symptoms. 12/30/2019. No acute events overnight. Patient comfortable resting in no apparent distress, alert and oriented, cooperative with physical examination, just finished breakfast, inquiring about his COVID prognosis, denies any fever, chills, nausea, vomiting. 12/31/2019. No acute events overnight. Comfortably sitting up in distress, patient is very anxious to be discharged to rehab, inquiring when he can go to rehab, patient was informed that he has Covid and it is difficult to find him a place, but we are trying, patient voiced understanding but is still very anxious to leave, denies any fever, chills, nausea, vomiting, diarrhea, constipation or any urinary symptoms. Alert and oriented and cooperative with physical exami [facility]. 01/01/2020. Unfortunately patient missed his morning dose of Seroquel yesterday and he was very agitated and aggressive, had to be placed on soft restraints, was able to take his Seroquel this evening and this morning patient is comfortable resting in bed no apparent distress, still asking when he can go home. Denies any fever, chills, nausea, vomiting, diarrhea, constipation or any urinary symptoms. 01/02/2020. No acute events overnight. Patient's repeat COVID-19 is negative, patient is stating that he thinks he had COVID-19 before he came to the hospital, patient is on room air, saturating WNL, alert and oriented, cooperative with physical examination, very pleasant and asking when he can go to rehab, denies any fever, chills, nausea, vomiting. Reason For Visit: DKA Physical Exam Vital Signs: Temp Pulse Resp BP Pulse Ox 97.4 F 94 18 115/73 95 01/02/20 07:53 01/02/20 07:53 01/02/20 07:53 01/02/20 07:53 01/02/20 07:53 Intake & Output 01/01/20 01/02/20 01/03/20 06:59 06:59 06:59 Intake Total 100 360 Output Total 1650 1560 Balance -1550 -1200 Weight 84 kg 82 kg General appearance: PRESENT: no acute distress, well-developed, well-nourished Head exam: PRESENT: atraumatic, normocephalic Respiratory exam: PRESENT: clear to auscultation malcom. ABSENT: rales, rhonchi, wheezes Cardiovascular exam: PRESENT: RRR. ABSENT: diastolic murmur, rubs, systolic murmur GI/Abdominal exam: PRESENT: normal bowel sounds, soft. ABSENT: distended, guarding, mass, organolmegaly, rebound, tenderness Neurological exam: PRESENT: alert, awake, oriented to person, oriented to place, oriented to time, oriented to situation, CN II-XII grossly intact. ABSENT: motor sensory deficit Results Laboratory Results: 01/02/20 08:27 01/02/20 05:10 01/02/20 01/02/20 01/02/20 05:10 05:10 08:27 WBC Cancelled 7.6 RBC Cancelled 3.67 L Hgb Cancelled 12.0 L Hct Cancelled 35.3 L MCV Cancelled 96 MCH Cancelled 32.7 MCHC Cancelled 34.0 RDW Cancelled 14.6 H Plt Count Cancelled 186 Seg Neutrophils % Cancelled 89.3 H Sodium 131.8 L Potassium 4.6 Chloride 99 Carbon Dioxide 30 Anion Gap 3 L BUN 37 H Creatinine 1.15 Est GFR ( Amer) > 60 Glucose 168 H Calcium 8.1 L Magnesium 2.2 Total Bilirubin 0.6 AST 25 Alkaline Phosphatase 57 Total Protein 4.5 L Albumin 2.3 L Impressions: Chest X-Ray 12/20/19 18:10 IMPRESSION: NO ACUTE RADIOGRAPHIC FINDING IN THE CHEST. Head CT 12/22/19 00:00 IMPRESSION: CHRONIC CHANGES OF ATROPHY AND MICROVASCULAR ISCHEMIA. NO ACUTE PROCESS. EVIDENCE OF ACUTE STROKE: NO. Assessment and Plan - Diagnosis (1) COVID-19 virus detected Is this a current diagnosis for this admission?: Yes Plan: On my encounter today encounter patient was on room air. In no apparent distress. SPO2 WNL. WBC WNL. Afebrile. Repeat COVID-19 swab negative. Patient is stating that he thinks he had COVID before he came to the hospital. Not sure if patient was exposed here in the hospital as outpatient. Patient is pretty much asymptomatic and at his baseline. Received 5 days of IV antibiotics. Received 5 days of IV azithromycin. Received 5 days of IV dexamethasone. Already on rivaroxaban. Since patient is asymptomatic will DC IV antibiotics at this point and will monitor. Continue PRN duo nebs supplemental oxygen,zinc sulfate, duo nebs. (2) Acute metabolic encephalopathy Is this a current diagnosis for this admission?: Yes Plan: Resolved. Patient is alert and oriented x3. Answering question appropriately. Does not not not remember how he got to the hospital and was in ICU does not seem to have an understanding of his underlying medical condition. Scored 17 on Mini-Mental Status Examination. As per son patient has dementia at baseline is confused most of the time which gets worse when his sugar is out of control. As per son patient and make their own medical decisions but he is concerned that they are not safe place to self and would like to get their guardianship. Patient has agreed to be transferred to short-term rehab. Discharge planning has been consulted. Afebrile. SPO2 WNL on RA. WBC WNL. Electrolytes WNL. TSH free T4 and T3 renal WNL. CT head negative for any acute stroke. B12 folate acid WNL. VDRL nonreactive. Continue Seroquel. Continue diabetic management, correct electrolytes, monitor vitals. (3) Dementia Qualifiers: Dementia type: Alzheimer's disease Alzheimer's disease onset: late-onset Dementia behavioral disturbance: with behavioral disturbance Qualified Code(s): G30.1 - Alzheimer's disease with late onset; F02.81 - Dementia in other diseases classified elsewhere with behavioral disturbance Is this a current diagnosis for this admission?: Yes Plan: Patient is alert and oriented x3. Moderate dementia. Scored 17 on Mini-Mental Status Examination. Baseline dementia as per son. Moderate improvement aggressive behavior and agitation with Seroquel. Continue supportive measures and Seroquel. Outpatient PCP and neurology follow-up. (4) Diabetes mellitus Qualifiers: Diabetes mellitus type: type 2 Chronic kidney disease stage: stage 3 (moderate) Is this a current diagnosis for this admission?: Yes Plan: Uncontrolled. Very labile blood sugars. Needs daily insulin dosing adjustments. Hemoglobin A1c 7 8%. Presented with DKA. Continue diabetic diet, sliding scale, correctional insulin and basal insulin. Accu-Chek, hypoglycemia protocol. (5) Acute on chronic renal failure Qualifiers: Chronic kidney disease stage: stage 3 (moderate) Is this a current diagnosis for this admission?: Yes Plan: Resolved. Back to baseline. 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 Prerenal likely due to severe dehydration caused by DKA. Monitor electrolytes, replete as needed, monitor volume status, avoid nephrotoxic meds. (6) CAD (coronary artery disease) Qualifiers: Coronary Disease-Associated Artery/Lesion type: unspecified vessel or lesion type Associated angina: without angina Is this a current diagnosis for this admission?: Yes Plan: History of CABG. Denies any anginal symptoms. Continue beta-blockers, ARB, antiplatelets and statins. (7) Hypertension Is this a current diagnosis for this admission?: Yes Plan: Not optimized. Resume home meds. Adjust meds as needed. PRN IV hydralazine and metoprolol. Outpatient PCP follow-up. (8) DKA (diabetic ketoacidoses) Qualifiers: Diabetes mellitus type: type 2 Diabetes mellitus complication detail: with coma Qualified Code(s): E11.11 - Type 2 diabetes mellitus with ketoacidosis with coma Is this a current diagnosis for this admission?: Yes Plan: Resolved. Initially was transferred to ICU. Was started on insulin drip. Currently anion gap WNL. - Time Time Spent with patient: 25-34 minutes Medications reviewed and adjusted accordingly: Yes Anticipated Discharge Disposition: Nursing Home Facility Anticipated Discharge Timeframe: within 36 hours
[2020-01-02] MEDS: TAMSULOSIN HCL 0.4 MG CAP.SR.24H PO SCH (17:10)
[2020-01-02] MEDS: ATORVASTATIN CALCIUM 40 MG TABLET PO SCH (23:06)
[2020-01-03 05:33] LABS: ABSOLUTE LYMPHOCYTES (AUTO) 1.3 10^3/uL (0.5-4.7); ABSOLUTE MONOCYTES (AUTO) 0.4 10^3/uL (0.1-1.4); ABSOLUTE NEUT (AUTO) 5.2 10^3/uL (1.7-8.2); EOSINOPHILS % (AUTO) 0.2 % (0-6); HEMATOCRIT 37.6 % (37.9-51.0); HEMOGLOBIN 12.9 g/dL (13.5-17.0); LYMPHOCYTES % (AUTO) 18.3 % (13-45); MEAN CORPUSCULAR HEMOGLOBIN 32.9 pg (27.0-33.4); MEAN CORPUSCULAR HGB CONC 34.4 g/dL (32.0-36.0); MEAN CORPUSCULAR VOLUME 96 fl (80-97); MONOCYTES % (AUTO) 6.3 % (3-13); PLATELET COUNT 181 10^3/uL (150-450); RED BLOOD COUNT 3.93 10^6/uL (4.35-5.55); RED CELL DISTRIBUTION WIDTH 14.1 % (11.5-14.0); SEGMENTED NEUTROPHILS % (AUTO) 75.2 % (42-78); TOTAL CELLS COUNTED % (AUTO) 100 %
[2020-01-03 05:43] LABS: ALBUMIN 2.6 g/dL (3.5-5.0); ALKALINE PHOSPHATASE 75 U/L (38-126); ASPARTATE AMINO TRANSFERASE 27 U/L (17-59); BILIRUBIN,TOTAL 0.7 mg/dL (0.2-1.3); BLOOD UREA NITROGEN 42 mg/dL (7-20); CALCIUM 8.5 mg/dL (8.4-10.2); CARBON DIOXIDE 32 mmol/L (22-30); CHLORIDE 100 mmol/L (98-107); GLUCOSE 162 mg/dL (75-110); POTASSIUM 4.3 mmol/L (3.6-5.0); TOTAL PROTEIN 5.3 g/dL (6.3-8.2)
[2020-01-03 05:51] LABS: ANION GAP 4 (5-19)
[2020-01-03] MEDS: INSULIN LISPRO 100 UNIT/ML 3 ML VIAL SUBCUT SCH ×7 (08:17→23:01)
[2020-01-03] MEDS: QUETIAPINE FUMARATE 25 MG TABLET PO SCH ×2 (08:18→23:02)
[2020-01-03] MEDS: MAGNESIUM OXIDE 400 MG TABLET PO SCH (09:35)
[2020-01-03] MEDS: CALCIUM CARBONATE 600 MG TABLET PO SCH ×2 (09:36→18:58)
[2020-01-03] MEDS: LOSARTAN POTASSIUM 50 MG TABLET PO SCH (09:36)
[2020-01-03] MEDS: RIVAROXABAN 10 MG TABLET PO SCH (09:36)
[2020-01-03] MEDS: POTASSIUM CHLORIDE 10 MEQ TABLET.ER PO SCH (09:36)
[2020-01-03] MEDS: TORSEMIDE 20 MG TABLET PO SCH (09:36)
[2020-01-03] MEDS: ZINC SULFATE 220 MG CAPSULE PO SCH (09:36)
[2020-01-03] MEDS: INSULIN GLARGINE,HUM.REC.ANLOG 1,000 UNIT/10 ML VIAL SUBCUT SCH (13:48)
[2020-01-03] MEDS: MULTIVITAMIN TABLET PO SCH (13:48)
[2020-01-03] MEDS: TAMSULOSIN HCL 0.4 MG CAP.SR.24H PO SCH (18:59)
--- NOTE | 2020-01-03 19:15 | PDOC PROGRESS REPORT ---
Subjective Progress Note for:: 01/03/20 Subjective:: Mr. Arroyo is a 79-year-old male with a history of CAD status post CABG x4, CHF, right nephrectomy, ureteral carcinoma, dementia, who was admitted to ICU for DKA. DKA has resolved and patient transferred to floor for further management. 12/22/2019. No acute events overnight. Saw patient this morning, currently resting in bed in no apparent distress, alert and oriented x1, pleasantly confused, no baseline available, cooperative with physical examination, denies any fever, chills, nausea, vomiting, diarrhea, constipation or any urinary symptoms. 12/23/2019. No acute events overnight. Saw patient this morning resting in bed in no apparent distress, unfortunate patient is still confused and does not follow two-step, alert and oriented only x1, does not answers questions appropriately. Apparently patient lives with his who seems to have some type of dementia as per primary nurse who saw her yesterday, I did call her left a message but she has not returned my call, Dr. Ndiaye their son who states that he is not diabetic renal follow-up in his care as his parents make their own decisions, but is stating that at baseline patient has dementia has not confused but whenever her sugar is not under control it gets worse, he would like both of his parents to be placed at a custodial however he is not the primary decision maker. He would like help to see if he can gain their guardianship. I have talked to discharge planners to provide him with some guidance if possible. Meanwhile will try to send patient to short-term rehab. 12/24/2019. Yesterday evening patient was being aggressive towards nursing staff, trying to pull his lines, had to be started on soft two-point restraints, 1 dose of Haldol was given with significant improvement of his behavior, patient was also given 25 mg Seroquel p.o. last night this morning patient is more alert and engaging in conversation, he is oriented x2, does not know why he is in the hospital, does not seem to be in apparent distress, denies any fever, chills, nausea, vomiting. 12/25/2019. No acute events overnight. Since being started on Seroquel patient has remarkable improvement of his aggressive behavior and agitation however still very anxious to leave home, he is off of his soft restraints. Patient is alert and oriented and interactive and answering questions appropriately, does not remember that he was in ICU, had a lengthy conversation with him regarding my concern sending him back home as he seems like he is not safe for him to go home now, patient is very hesitant but agreed to, short-term rehab for now. Patient is very concerned about his insulin pump and would like to follow-up with his flight test shop mechanic I have assured him that when he is in rehab he will be able to keep his appointments with his physicians. Discharge planning has been consulted and patient is pending transfer to SNF 12/26/2019. No acute events overnight. Patient behavior has improved however still tried to get out of bed once a while, alert and oriented and cooperative with physical examination, denies any fever, chills, nausea, vomiting. Pending to be transferred to SNF. 12/27/2019. No acute events overnight. Pending transfer to rehab. 12/28/2019. Yesterday patient was noted to be confused EEG was done which was unremarkable and bladder scan showed urinary retention, patient again had a s traight better night, this morning at baseline alert and oriented and enjoying his breakfast, does not remember that he was confused yesterday. Was notified that he is retaining urine, he has agreed to allow support of indwelling Layne catheter. Denies any fever, chills, nausea, vomiting. Pending transfer. 12/29/2019. Patient was pending transfer to rehab and screening test was done for code which unfortunately has become positive, saw patient this morning resting comfortably. No apparent distress, alert and oriented and understand that he is covered positive, he was told that he will be in the hospital for couple more days just for bservation, agrees with plan, denies any fever, chills, nausea, vomiting, diarrhea, constipation or any urinary symptoms. 12/30/2019. No acute events overnight. Patient comfortable resting in no apparent distress, alert and oriented, cooperative with physical examination, just finished breakfast, inquiring about his COVID prognosis, denies any fever, chills, nausea, vomiting. 12/31/2019. No acute events overnight. Comfortably sitting up in distress, patient is very anxious to be discharged to rehab, inquiring when he can go to rehab, patient was informed that he has Covid and it is difficult to find him a place, but we are trying, patient voiced understanding but is still very anxious to leave, denies any fever, chills, nausea, vomiting, diarrhea, constipation or any urinary symptoms. Alert and oriented and cooperative with physical exam[facility]. 01/01/2020. Unfortunately patient missed his morning dose of Seroquel yesterday and he was very agitated and aggressive, had to be placed on soft restraints, was able to take his Seroquel this evening and this morning patient is comfortable resting in bed no apparent distress, still asking when he can go home. Denies any fever, chills, nausea, vomiting, diarrhea, constipation or any urinary symptoms. 01/02/2020. No acute events overnight. Patient's repeat COVID-19 is negative, patient is stating that he thinks he had COVID-19 before he came to the hospital, patient is on room air, saturating WNL, alert and oriented, cooperative with physical examination, very pleasant and asking when he can go to rehab, denies any fever, chills, nausea, vomiting. 01/03/2020. No acute events overnight. Pending placement. Reason For Visit: DKA Physical Exam Vital Signs: Temp Pulse Resp BP Pulse Ox 97.6 F 88 21 H 107/55 L 96 01/03/20 12:23 01/03/20 14:00 01/03/20 12:23 01/03/20 12:23 01/03/20 12:23 Intake & Output 01/02/20 01/03/20 01/04/20 06:59 06:59 06:59 Intake Total 360 480 Output Total 1560 2250 Balance -1200 -1770 Weight 82 kg 82 kg 82 kg General appearance: PRESENT: no acute distress, well-developed, well-nourished Head exam: PRESENT: atraumatic, normocephalic Respiratory exam: PRESENT: clear to auscultation malcom. ABSENT: rales, rhonchi, wheezes GI/Abdominal exam: PRESENT: normal bowel sounds, soft. ABSENT: distended, guarding, mass, organolmegaly, rebound, tenderness Neurological exam: PRESENT: alert, awake, oriented to person, oriented to place, CN II-XII grossly intact. ABSENT: motor sensory deficit Results Laboratory Results: 01/03/20 04:52 01/03/20 04:52 01/03/20 01/03/20 04:52 04:52 WBC 7.0 RBC 3.93 L Hgb 12.9 L Hct 37.6 L MCV 96 MCH 32.9 MCHC 34.4 RDW 14.1 H Plt Count 181 Seg Neutrophils % 75.2 Sodium 135.9 L Potassium 4.3 Chloride 100 Carbon Dioxide 32 H Anion Gap 4 L BUN 42 H Creatinine 1.45 H Est GFR ( Amer) 57 L Glucose 162 H Calcium 8.5 Magnesium 2.3 Total Bilirubin 0.7 AST 27 Alkaline Phosphatase 75 Total Protein 5.3 L Albumin 2.6 L Impressions: Chest X-Ray 12/20/19 18:10 IMPRESSION: NO ACUTE RADIOGRAPHIC FINDING IN THE CHEST. Head CT 12/22/19 00:00 IMPRESSION: CHRONIC CHANGES OF ATROPHY AND MICROVASCULAR ISCHEMIA. NO ACUTE PROCESS. EVIDENCE OF ACUTE STROKE: NO. Assessment and Plan - Diagnosis (1) COVID-19 virus detected Is this a current diagnosis for this admission?: Yes Plan: On my encounter today encounter patient was on room air. In no apparent distress. SPO2 WNL. WBC WNL. Afebrile. Repeat COVID-19 swab negative. Patient is stating that he thinks he had COVID before he came to the hospital. Not sure if patient was exposed here in the hospital as outpatient. Patient is pretty much asymptomatic and at his baseline. Received 5 days of IV antibiotics. Received 5 days of IV azithromycin. Received 5 days of IV dexamethasone. Already on rivaroxaban. Since patient is asymptomatic will DC IV antibiotics at this point and will monitor. Continue PRN duo nebs supplemental oxygen,zinc sulfate, duo nebs. (2) Acute metabolic encephalopathy Is this a current diagnosis for this admission?: Yes Plan: Resolved. Patient is alert and oriented x3. Answering question appropriately. Does not not not remember how he got to the hospital and was in ICU does not seem to have an understanding of his underlying medical condition. Scored 17 on Mini-Mental Status Examination. As per son patient has dementia at baseline is confused most of the time which gets worse when his sugar is out of control. As per son patient and make their own medical decisions but he is concerned that they are not safe place to self and would like to get their guardianship. Patient has agreed to be transferred to short-term rehab. Discharge planning has been consulted. Afebrile. SPO2 WNL on RA. WBC WNL. Electrolytes WNL. TSH free T4 and T3 renal WNL. CT head negative for any acute stroke. B12 folate acid WNL. VDRL nonreactive. Continue Seroquel. Continue diabetic management, correct electrolytes, monitor vitals. (3) Dementia Qualifiers: Dementia type: Alzheimer's disease Alzheimer's disease onset: late-onset Dementia behavioral disturbance: with behavioral disturbance Qualified Code(s): G30.1 - Alzheimer's disease with late onset; F02.81 - Dementia in other diseases classified elsewhere with behavioral disturbance Is this a current diagnosis for this admission?: Yes Plan: Patient is alert and oriented x3. Moderate dementia. Scored 17 on Mini-Mental Status Examination. Baseline dementia as per son. Moderate improvement aggressive behavior and agitation with Seroquel. Continue supportive measures and Seroquel. Outpatient PCP and neurology follow-up. (4) Diabetes mellitus Qualifiers: Diabetes mellitus type: type 2 Chronic kidney disease stage: stage 3 (mod erate) Is this a current diagnosis for this admission?: Yes Plan: Uncontrolled. Very labile blood sugars. Needs daily insulin dosing adjustment s. Hemoglobin A1c 7 8%. Presented with DKA. Continue diabetic diet, sliding scale, correctional insulin and basal insulin. Accu-Chek, hypoglycemia protocol. (5) Acute on chronic renal failure Qualifiers: Chronic kidney disease stage: stage 3 (moderate) Is this a current diagnosis for this admission?: Yes Plan: Resolved. Back to baseline. 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 Prerenal likely due to severe dehydration caused by DKA. Monitor electrolytes, replete as needed, monitor volume status, avoid nephrotoxic meds. (6) CAD (coronary artery disease) Qualifiers: Coronary Disease-Associated Artery/Lesion type: unspecified vessel or lesion type Associated angina: without angina Is this a current diagnosis for this admission?: Yes Plan: History of CABG. Denies any anginal symptoms. Continue beta-blockers, ARB, antiplatelets and statins. (7) Hypertension Is this a current diagnosis for this admission?: Yes Plan: Not optimized. Resume home meds. Adjust meds as needed. PRN IV hydralazine and metoprolol. Outpatient PCP follow-up. (8) DKA (diabetic ketoacidoses) Qualifiers: Diabetes mellitus type: type 2 Diabetes mellitus complication detail: with coma Qualified Code(s): E11.11 - Type 2 diabetes mellitus with ketoacidosis with coma Is this a current diagnosis for this admission?: Yes Plan: Resolved. Initially was transferred to ICU. Was started on insulin drip. Currently anion gap WNL. - Time Time Spent with patient: 25-34 minutes Medications reviewed and adjusted accordingly: Yes Anticipated Discharge Disposition: [facility] Facility Anticipated Discharge Timeframe: when bed available
[2020-01-03] MEDS: ATORVASTATIN CALCIUM 40 MG TABLET PO SCH (23:01)
[2020-01-04] MEDS: INSULIN LISPRO 100 UNIT/ML 3 ML VIAL SUBCUT SCH ×7 (09:02→22:24)
[2020-01-04] MEDS: LOSARTAN POTASSIUM 50 MG TABLET PO SCH (09:07)
[2020-01-04] MEDS: ZINC SULFATE 220 MG CAPSULE PO SCH (09:07)
[2020-01-04] MEDS: TORSEMIDE 20 MG TABLET PO SCH ×2 (09:08→11:11)
[2020-01-04] MEDS: QUETIAPINE FUMARATE 25 MG TABLET PO SCH ×2 (09:08→22:23)
[2020-01-04] MEDS: MAGNESIUM OXIDE 400 MG TABLET PO SCH (09:08)
[2020-01-04] MEDS: RIVAROXABAN 10 MG TABLET PO SCH (09:08)
[2020-01-04] MEDS: POTASSIUM CHLORIDE 10 MEQ TABLET.ER PO SCH (09:08)
[2020-01-04] MEDS: INSULIN GLARGINE,HUM.REC.ANLOG 1,000 UNIT/10 ML VIAL SUBCUT SCH (09:08)
[2020-01-04] MEDS: CALCIUM CARBONATE 600 MG TABLET PO SCH ×2 (09:09→17:27)
[2020-01-04 09:19] LABS: ALBUMIN 2.6 g/dL (3.5-5.0); ALKALINE PHOSPHATASE 72 U/L (38-126); ASPARTATE AMINO TRANSFERASE 26 U/L (17-59); BILIRUBIN,TOTAL 1.2 mg/dL (0.2-1.3); BLOOD UREA NITROGEN 39 mg/dL (7-20); CALCIUM 8.4 mg/dL (8.4-10.2); CARBON DIOXIDE 31 mmol/L (22-30); CHLORIDE 97 mmol/L (98-107); GLUCOSE 209 mg/dL (75-110); TOTAL PROTEIN 5.2 g/dL (6.3-8.2)
[2020-01-04 09:21] LABS: ANION GAP 3 (5-19)
--- NOTE | 2020-01-04 09:28 | PDOC PROGRESS REPORT ---
Subjective Progress Note for:: 01/04/20 Subjective:: 79-year-old male with a history of CAD status post CABG x4, CHF, right nephrectomy, ureteral carcinoma, dementia, who was admitted to ICU for DKA. DKA has resolved and patient transferred to floor for further management. 12/22/2019. No acute events overnight. Saw patient this morning, currently resting in bed in no apparent distress, alert and oriented x1, pleasantly confused, no baseline available, cooperative with physical examination, denies any fever, chills, nausea, vomiting, diarrhea, constipation or any urinary symptoms. 12/23/2019. No acute events overnight. Saw patient this morning resting in bed in no apparent distress, unfortunate patient is still confused and does not follow two-step, alert and oriented only x1, does not answers questions appropriately. Apparently patient lives with his who seems to have some type of dementia as per primary nurse who saw her yesterday, I did call her left a message but she has not returned my call, Dr. Ndiaye their son who states that he is not diabetic renal follow-up in his care as his parents make their own decisions, but is stating that at baseline patient has dementia has not confused but whenever her sugar is not under control it gets worse, he would like both of his parents to be placed at a correction however he is not the primary decision maker. He would like help to see if he can gain their guardianship. I have talked to discharge planners to provide him with some guidance if possible. Meanwhile will try to send patient to short-term rehab. 12/24/2019. Yesterday evening patient was being aggressive towards nursing staff, trying to pull his lines, had to be started on soft two-point restraints, 1 dose of Haldol was given with significant improvement of his behavior, patient was also given 25 mg Seroquel p.o. last night this morning patient is more alert and engaging in conversation, he is oriented x2, does not know why he is in the hospital, does not seem to be in apparent distress, denies any fever, chills, nausea, vomiting. 12/25/2019. No acute events overnight. Since being started on Seroquel patient has remarkable improvement of his aggressive behavior and agitation however still very anxious to leave home, he is off of his soft restraints. Patient is alert and oriented and interactive and answering questions appropriately, does not remember that he was in ICU, had a lengthy conversation with him regarding my concern sending him back home as he seems like he is not safe for him to go home now, patient is very hesitant but agreed to, short-term rehab for now. 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 Discharge planning has been consulted and patient is pending transfer to SNF 12/26/2019. No acute events overnight. Patient behavior has improved however still tried to get out of bed once a while, alert and oriented and cooperative with physical examination, denies any fever, chills, nausea, vomiting. Pending to be transferred to SNF. 12/27/2019. No acute events overnight. Pending transfer to rehab. 12/28/2019. Yesterday patient was noted to be confused EEG was done which was unremarkable and bladder scan showed urinary retention, patient again had a straight better night, this morning at baseline alert and oriented and enjoying his breakfast, does not remember that he was confused yesterday. Was notified that he is retaining urine, he has agreed to allow support of indwelling Layne catheter. Denies any fever, chills, nausea, vomiting. Pending transfer. 12/29/2019. Patient was pending transfer to rehab and screening test was done for code which unfortunately has become positive, saw patient this morning resting comfortably. No apparent distress, alert and oriented and understand that he is covered positive, he was told that he will be in the hospital for couple more days just for bservation, agrees with plan, denies any fever, chills, nausea, vomiting, diarrhea, constipation or any urinary symptoms. 12/30/2019. No acute events overnight. Patient comfortable resting in no apparent distress, alert and oriented, cooperative with physical examination, just finished breakfast, inquiring about his COVID prognosis, denies any fever, chills, nausea, vomiting. 12/31/2019. No acute events overnight. Comfortably sitting up in distress, patient is very anxious to be discharged to rehab, inquiring when he can go to rehab, patient was informed that he has Covid and it is difficult to find him a place, but we are trying, patient voiced understanding but is still very anxious to leave, denies any fever, chills, nausea, vomiting, diarrhea, constipation or any urinary symptoms. Alert and oriented and cooperative with physical examination. 01/01/2020. Unfortunately patient missed his morning dose of Seroquel yesterday and he was very agitated and aggressive, had to be placed on soft restraints, was able to take his Seroquel this evening and this morning patient is comfortable resting in bed no apparent distress, still asking when he can go home. Denies any fever, chills, nausea, vomiting, diarrhea, constipation or any urinary symptoms. 01/02/2020. No acute events overnight. Patient's repeat COVID-19 is negative, patient is stating that he thinks he had COVID-19 before he came to the hospital, patient is on room air, saturating WNL, alert and oriented, cooperative with physical examination, very pleasant and asking when he can go to rehab, denies any fever, chills, nausea, vomiting. 01/03/2020. No acute events overnight. Pending placement. 01/04/20-no acute events in the last 24 hours. Afebrile. Coronavirus testing is pending at this time. Blood pressure this morning is 100/54 plan is to decrease torsemide to 10 mg p.o. daily. Comfortably in the bed sleeping communicating well. Not in distress. Denies any complaints. Reason For Visit: DKA Physical Exam Vital Signs: Temp Pulse Resp BP Pulse Ox 97.7 F 82 19 100/54 L 94 01/04/20 08:04 01/04/20 08:04 01/04/20 08:04 01/04/20 08:04 01/04/20 08:04 Intake & Output 01/03/20 01/04/20 01/05/20 06:59 06:59 06:59 Intake Total 480 500 Output Total 2250 1900 Balance -1770 -1400 Weight 82 kg 82.3 kg General appearance: PRESENT: no acute distress, well-developed Head exam: PRESENT: atraumatic Eye exam: PRESENT: PERRLA Mouth exam: PRESENT: moist, tongue midline Teeth exam: PRESENT: poor dentation Neck exam: ABSENT: carotid bruit, JVD, lymphadenopathy, thyromegaly Respiratory exam: PRESENT: decreased breath sounds Cardiovascular exam: PRESENT: RRR. ABSENT: diastolic murmur, rubs, systolic murmur GI/Abdominal exam: PRESENT: normal bowel sounds, soft. ABSENT: distended, guarding, mass, organolmegaly, rebound, tenderness Rectal exam: PRESENT: deferred Extremities exam: PRESENT: full ROM. ABSENT: calf tenderness, clubbing, pedal edema Neurological exam: PRESENT: alert, awake, oriented to person, oriented to place, oriented to time, oriented to situation, CN II-XII grossly intact. ABSENT: motor sensory deficit Psychiatric exam: PRESENT: appropriate affect, normal mood. ABSENT: homicidal ideation, suicidal ideation Results Laboratory Results: 01/03/20 04:52 Impressions: Chest X-Ray 12/20/19 18:10 IMPRESSION: NO ACUTE RADIOGRAPHIC FINDING IN THE CHEST. Head CT 12/22/19 00:00 IMPRESSION: CHRONIC CHANGES OF ATROPHY AND MICROVASCULAR ISCHEMIA. NO ACUTE PROCESS. EVIDENCE OF ACUTE STROKE: NO. Assessment and Plan - Diagnosis (1) COVID-19 virus detected Is this a current diagnosis for this admission?: Yes Plan: On my encounter today encounter patient was on room air. In no apparent distress. SPO2 WNL. WBC WNL. Afebrile. Repeat COVID-19 swab negative. Patient is stating that he thinks he had COVID before he came to the hospital. Not sure if patient was exposed here in the hospital as outpatient. Patient is pretty much asymptomatic and at his baseline. Received 5 days of IV antibiotics. Received 5 days of IV azithromycin. Received 5 days of IV dexamethasone. Already on rivaroxaban. Since patient is asymptomatic will DC IV antibiotics at this point and will monitor. Continue PRN duo nebs supplemental oxygen,zinc sulfate, duo nebs. 01/04/2020-coronavirus testing was done on report is pending. Patient is afebrile no acute events the last 24 hours. (2) Acute metabolic encephalopathy Is this a current diagnosis for this admission?: Yes Plan: Resolved. Patient is alert and oriented x3. Answering question appropriately. Does not not not remember how he got to the hospital and was in ICU does not s eem to have an understanding of his underlying medical condition. Scored 17 on Mini-Mental Status Examination. As per son patient has dementia at baseline is confused most of the time which gets worse when his sugar is out of control. As per son patient and make their own medical decisions but he is concerned that they are not safe place to self and would like to get their guardianship. Patient has agreed to be transferred to short-term rehab. Discharge planning has been consulted. Afebrile. SPO2 WNL on RA. WBC WNL. Electrolytes WNL. TSH free T4 and T3 renal WNL. CT head negative for any acute stroke. B12 folate acid WNL. VDRL nonreactive. Continue Seroquel. Continue diabetic management, correct electrolytes, monitor vitals. 01/04/2020-patient admitted with acute metabolic encephalopathy/altered mental status. Which was resolved. Comfortably in the bed communicating well. Not in distress. (3) Dementia Qualifiers: Dementia type: Alzheimer's disease Alzheimer's disease onset: late-onset Dementia behavioral disturbance: with behavioral disturbance Qualified Code(s): G30.1 - Alzheimer's disease with late onset; F02.81 - Dementia in other diseases classified elsewhere with behavioral disturbance Is this a current diagnosis for this admission?: No Plan: Patient is alert and oriented x3. Moderate dementia. Scored 17 on Mini-Mental Status Examination. Baseline dementia as per son. Moderate improvement aggressive behavior and agitation with Seroquel. Continue supportive measures and Seroquel. Outpatient PCP and neurology follow-up. (4) Diabetes mellitus Qualifiers: Diabetes mellitus type: type 2 Chronic kidney disease stage: stage 3 (moderate) Is this a current diagnosis for this admission?: No Plan: Uncontrolled. Very labile blood sugars. Needs daily insulin dosing adjustments. Hemoglobin A1c 7 8%. Presented with DKA. Continue diabetic diet, sliding scale, correctional insulin and basal insulin. Accu-Chek, hypoglycemia protocol. 01/04/2020-blood sugar this morning is 209. Hemoglobin A1c 7.8. Plan is to continue the present management at this time. (5) Acute on chronic renal failure Qualifiers: Chronic kidney disease stage: stage 3 (moderate) Is this a current diagnosis for this admission?: Yes Plan: Resolved. Back to baseline. 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 Prerenal likely due to severe dehydration caused by DKA. Monitor electrolytes, replete as needed, monitor volume status, avoid nephrotoxic meds. 01/04/2020-serum creatinine today is 1.27. Patient is nonoliguric. Kidney fun ction is stable. On admission creatinine is 2.3. Acute on chronic renal failure resolving. (6) Hypertension Is this a current diagnosis for this admission?: No Plan: Not optimized. Resume home meds. Adjust meds as needed. PRN IV hydralazine and metoprolol. Outpatient PCP follow-up. 01/04/2020-blood pressure this morning is 100/60. Patient is on losartan 100 mg p.o. daily, metoprolol 2.5 mg IV every 6 as needed, torsemide 20 mg p.o. daily. Plan is to decrease the torsemide to 10 mg p.o. daily at this time. (7) DKA (diabetic ketoacidoses) Qualifiers: Diabetes mellitus type: type 2 Diabetes mellitus complication detail: with coma Qualified Code(s): E11.11 - Type 2 diabetes mellitus with ketoacidosis with coma Is this a current diagnosis for this admission?: Yes Plan: Resolved. Initially was transferred to ICU. Was started on insulin drip. Currently anion gap WNL. 01/04/2020-diabetic ketoacidosis is resolved. Latest blood sugar is 209. Hemoglobin A1c 7.8. Plan is to continue insulin sliding scale before meals and at bedtime Lantus 10 units subcu daily and lispro 5 units prior to meals. - Time Anticipated Discharge Disposition: [facility] Facility Anticipated Discharge Timeframe: within 72 hours
[2020-01-04] MEDS: MULTIVITAMIN TABLET PO SCH (12:16)
[2020-01-04] MEDS: TAMSULOSIN HCL 0.4 MG CAP.SR.24H PO SCH (17:27)
[2020-01-04] MEDS: ATORVASTATIN CALCIUM 40 MG TABLET PO SCH (22:22)
[2020-01-05 06:12] LABS: ABSOLUTE EOSINOPHILS # (AUTO) 0.2 10^3/uL (0.0-0.6); ABSOLUTE LYMPHOCYTES (AUTO) 1.8 10^3/uL (0.5-4.7); ABSOLUTE MONOCYTES (AUTO) 0.4 10^3/uL (0.1-1.4); ABSOLUTE NEUT (AUTO) 3.7 10^3/uL (1.7-8.2); BASOPHILS % (AUTO) 0.2 % (0-2); EOSINOPHILS % (AUTO) 2.8 % (0-6); HEMATOCRIT 41.6 % (37.9-51.0); HEMOGLOBIN 14.3 g/dL (13.5-17.0); LYMPHOCYTES % (AUTO) 29.2 % (13-45); MEAN CORPUSCULAR HEMOGLOBIN 32.8 pg (27.0-33.4); MEAN CORPUSCULAR HGB CONC 34.4 g/dL (32.0-36.0); MEAN CORPUSCULAR VOLUME 96 fl (80-97); MONOCYTES % (AUTO) 6.8 % (3-13); PLATELET COUNT 192 10^3/uL (150-450); RED BLOOD COUNT 4.36 10^6/uL (4.35-5.55); RED CELL DISTRIBUTION WIDTH 14.4 % (11.5-14.0); TOTAL CELLS COUNTED % (AUTO) 100 %
[2020-01-05] MEDS: INSULIN LISPRO 100 UNIT/ML 3 ML VIAL SUBCUT SCH ×4 (07:38→11:44)
[2020-01-05] MEDS: ZINC SULFATE 220 MG CAPSULE PO SCH (10:25)
[2020-01-05] MEDS: CALCIUM CARBONATE 600 MG TABLET PO SCH (10:25)
[2020-01-05] MEDS: RIVAROXABAN 10 MG TABLET PO SCH (10:25)
[2020-01-05] MEDS: TORSEMIDE 20 MG TABLET PO SCH (10:25)
[2020-01-05] MEDS: POTASSIUM CHLORIDE 10 MEQ TABLET.ER PO SCH (10:26)
[2020-01-05] MEDS: MAGNESIUM OXIDE 400 MG TABLET PO SCH (10:26)
[2020-01-05] MEDS: QUETIAPINE FUMARATE 25 MG TABLET PO SCH (10:26)
[2020-01-05] MEDS: INSULIN GLARGINE,HUM.REC.ANLOG 1,000 UNIT/10 ML VIAL SUBCUT SCH (10:26)
[2020-01-05] MEDS: LOSARTAN POTASSIUM 50 MG TABLET PO SCH (11:52)
[2020-01-05 13:08] VITALS: BP 97/57
[2020-01-05] MEDS: MULTIVITAMIN TABLET PO SCH (14:16)
--- NOTE | 2020-01-05 16:46 | PDOC DISCHARGE SUMMARY ---
Impression - Admit/DC Date/PCP Admission Date/Primary Care Provider: 12/20/19 20:20 AMNA MUNROE JR, DO Discharge Date: 01/05/20 - Discharge Diagnosis (1) COVID-19 virus detected Is this a current diagnosis for this admission?: Yes (2) Acute metabolic encephalopathy Is this a current diagnosis for this admission?: Yes (3) Dementia Is this a current diagnosis for this admission?: No (4) Diabetes mellitus Is this a current diagnosis for this admission?: No (5) Acute on chronic renal failure Is this a current diagnosis for this admission?: Yes (6) Hypertension Is this a current diagnosis for this admission?: No (7) DKA (diabetic ketoacidoses) Is this a current diagnosis for this admission?: Yes - Assessment Summary: (1) COVID-19 virus detected Is this a current diagnosis for this admission?: Yes Plan: On my encounter today encounter patient was on room air. In no apparent distress. SPO2 WNL. WBC WNL. Afebrile. Repeat COVID-19 swab negative. Patient is stating that he thinks he had COVID before he came to the hospital. Not sure if patient was exposed here in the hospital as outpatient. Patient is pretty much asymptomatic and at his baseline. Received 5 days of IV antibiotics. Received 5 days of IV azithromycin. Received 5 days of IV dexamethasone. Already on rivaroxaban. Since patient is asymptomatic will DC IV antibiotics at this point and will monitor. Continue PRN duo nebs supplemental oxygen,zinc sulfate, duo nebs. 01/04/2020-coronavirus testing was done on report is pending. Patient is afebrile no acute events the last 24 hours. 01/05/20-covid test is negative. (2) Acute metabolic encephalopathy Is this a current diagnosis for this admission?: Yes Plan: Resolved. Patient is alert and oriented x3. Answering question appropriately. Does not not not remember how he got to the hospital and was in ICU does not seem to have an understanding of his underlying medical condition. Scored 17 on Mini-Mental Status Examination. As per son patient has dementia at baseline is confused most of the time which gets worse when his sugar is out of control. As per son patient and make their own medical decisions but he is concerned that they are not safe place to self and would like to get their guardianship. Patient has agreed to be transferred to short-term rehab. Discharge planning has been consulted. Afebrile. SPO2 WNL on RA. WBC WNL. Electrolytes WNL. TSH free T4 and T3 renal WNL. CT head negative for any acute stroke. B12 folate acid WNL. VDRL nonreactive. Continue Seroquel. Continue diabetic management, correct electrolytes, monitor vitals. 01/04/2020-patient admitted with acute metabolic encephalopathy/altered mental status. Which was resolved. Comfortably in the bed communicating well. Not in distress. 01/05/20-patient admitted with acute metabolic and colopathy/altered mental status. Which was resolved alert and awake communicating well this morning. (3) Dementia Qualifiers: Dementia type: Alzheimer's disease Alzheimer's disease onset: late-onset Dementia behavioral disturbance: with behavioral disturbance Qualified Code(s): G30.1 - Alzheimer's disease with late onset; F02.81 - Dementia in other diseases classified elsewhere with behavioral disturbance Is this a current diagnosis for this admission?: No Plan: Patient is alert and oriented x3. Moderate dementia. Scored 17 on Mini-Mental Status Examination. Baseline dementia as per son. Moderate improvement aggressive behavior and agitation with Seroquel. Continue supportive measures and Seroquel. Outpatient PCP and neurology follow-up. (4) Diabetes mellitus Qualifiers: Diabetes mellitus type: type 2 Chronic kidney disease stage: stage 3 (moderate) Is this a current diagnosis for this admission?: No Plan: Uncontrolled. Very labile blood sugars. Needs daily insulin dosing adjustments. Hemoglobin A1c 7 8%. Presented with DKA. Continue diabetic diet, sliding scale, correctional insulin and basal insulin. Accu-Chek, hypoglycemia protocol. 01/04/2020-blood sugar this morning is 209. Hemoglobin A1c 7.8. Plan is to continue the present management at this time. 01/05/2020-latest blood sugar is 195. Hemoglobin A1c 7.8. Patient is advised to continue his home medications and follow-up with PCP next week for the lab work. (5) Acute on chronic renal failure Qualifiers: Chronic kidney disease stage: stage 3 (moderate) Is this a current diagnosis for this admission?: Yes Plan: Resolved. Back to baseline. 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 Prerenal likely due to severe dehydration caused by DKA. Monitor electrolytes, replete as needed, monitor volume status, avoid nephrotoxic meds. 01/04/2020-serum creatinine today is 1.27. Patient is nonoliguric. Kidney function is stable. On admission creatinine is 2.3. Acute on chronic renal failure resolving. 01/05/2020-serum creatinine 1.27, acute kidney injury is resolved. (6) Hypertension Is this a current diagnosis for this admission?: No Plan: Not optimized. Resume home meds. Adjust meds as needed. PRN IV hydralazine and metoprolol. Outpatient PCP follow-up. 01/04/2020-blood pressure this morning is 100/60. Patient is on losartan 100 mg p.o. daily, metoprolol 2.5 mg IV every 6 as needed, torsemide 20 mg p.o. daily. Plan is to decrease the torsemide to 10 mg p.o. daily at this time. 01/05/2020-blood pressure today is 100/50. Patient is advised to hold losartan at this time and that torsemide is also discontinued. Patient is advised to continue Lasix 20 mg in the morning. (7) DKA (diabetic ketoacidoses) Qualifiers: Diabetes mellitus type: type 2 Diabetes mellitus complication detail: with coma Qualified Code(s): E11.11 - Type 2 diabetes mellitus with ketoacidosis with coma Is this a current diagnosis for this admission?: Yes Plan: Resolved. Initially was transferred to ICU. Was started on insulin drip. Currently anion gap WNL. 01/04/2020-diabetic ketoacidosis is resolved. Latest blood sugar is 209. Hemoglobin A1c 7.8. Plan is to continue insulin sliding scale before meals and at bedtime Lantus 10 units subcu daily and lispro 5 units prior to meals. - Time - Additional Information Resuscitation Status: Full Code Discharge Diet: Diabetic Discharge Activity: Activity As Tolerated Referrals: YASMANI GRAMAJO MD [NO LOCAL MD] - (patient needs this f/u appt in order to obatin his new insulin pump for his DM type 1. the pump is at 's office, the patient needs to f/u in order to obtain the pump. ) Home Medications: Potassium Chloride [Klor-Con M10] 10 meq PO DAILY 02/01/19 Rosuvastatin Calcium [Crestor 20 mg Tablet] 20 mg PO QHS 10/25/19 Furosemide [Lasix 20 mg Tablet] 20 mg PO QAMP PRN 06/07/19 Insulin Glargine,Hum.rec.anlog [Lantus Insulin 100 Unit/1 ml 10 ml] 20 unit SUBCUT DAILY 12/21/19 Rivaroxaban [Xarelto] 20 mg PO DAILY 12/21/19 Losartan Potassium [Cozaar 50 mg Tablet] 100 mg PO DAILY tablet 01/05/20 Tamsulosin HCl [Flomax 0.4 mg Cap.sr] 0.4 mg PO PCSUPPER cap.sr.24h 01/05/20 History of Present Illiness History of Present Illness: AXEL COLON is a 79 year old male 79-year-old male with a history of early controlled diabetes, multiple admissions for DKA. 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 Presented to the ED with altered mental status and tachycardia. His blood glucose on arrival to the ED was 870 with anion gap 25, creatinine 2.3 baseline in August 2019 was 0.88. He had a potassium of 6.0. His EKG showed widening of his QRS compared to his previous EKG. He received 10 units of insulin bolus 1 amp of calcium gluconate 2 L LR and started on insulin drip. He is admitted to the ICU for further management Hospital Course Hospital Course: 79-year-old male with a history of CAD status post CABG x4, CHF, right nephrectomy, ureteral carcinoma, dementia, who was admitted to ICU for DKA. DKA has resolved and patient transferred to floor for further management. 12/22/2019. No acute events overnight. Saw patient this morning, currently resting in bed in no apparent distress, alert and oriented x1, pleasantly confused, no baseline available, cooperative with physical examination, denies any fever, chills, nausea, vomiting, diarrhea, constipation or any urinary symptoms. 12/23/2019. No acute events overnight. Saw patient this morning resting in bed in no apparent distress, unfortunate patient is still confused and does not follow two-step, alert and oriented only x1, does not answers questions appropriately. Apparently patient lives with his who seems to have some type of dementia as per primary nurse who saw her yesterday, I did call her left a message but she has not returned my call, Dr. Ndiaye their son who states that he is not diabetic renal follow-up in his care as his parents make their own decisions, but is stating that at baseline patient has dementia has not confused but whenever her sugar is not under control it gets worse, he would like both of his parents to be placed at a retirement however he is not the primary decision maker. He would like help to see if he can gain their guardianship. I have talked to discharge planners to provide him with some guidance if possible. Meanwhile will try to send patient to short-term rehab. 12/24/2019. Yesterday evening patient was being aggressive towards nursing staff, trying to pull his lines, had to be started on soft two-point restraints, 1 dose of Haldol was given with significant improvement of his behavior, patient was also given 25 mg Seroquel p.o. last night this morning patient is more alert and engaging in conversation, he is oriented x2, does not know why he is in the hospital, does not seem to be in apparent distress, denies any fever, chills, nausea, vomiting. 12/25/2019. No acute events overnight. Since being started on Seroquel patient has remarkable improvement of his aggressive behavior and agitation however still very anxious to leave home, he is off of his soft restraints. Patient is alert and oriented and interactive and answering questions appropriately, does not remember that he was in ICU, had a lengthy conversation with him regarding my concern sending him back home as he seems like he is not safe for him to go home now, patient is very hesitant but agreed to, short-term rehab for now. Patient is very concerned about his insulin pump and would like to follow-up with his marine structural designer I have assured him that when he is in rehab he will be able to keep his appointments with his physicians. Discharge planning has been consulted and patient is pending transfer to SNF 12/26/2019. No acute events overnight. Patient behavior has improved however still tried to get out of bed once a while, alert and oriented and cooperative with physical examination, denies any fever, chills, nausea, vomiting. Pending to be transferred to SNF. 12/27/2019. No acute events overnight. Pending transfer to rehab. 12/28/2019. Yesterday patient was noted to be confused EEG was done which was unremarkable and bladder scan showed urinary retention, patient again had a straight better night, this morning at baseline alert and oriented and enjoying his breakfast, does not remember that he was confused yesterday. Was notified that he is retaining urine, he has agreed to allow support of indwelling Layne catheter. Denies any fever, chills, nausea, vomiting. Pending transfer. 12/29/2019. Patient was pending transfer to rehab and screening test was done for code which unfortunately has become positive, saw patient this morning resting comfortably. No apparent distress, alert and oriented and understand that he is covered positive, he was told that he will be in the hospital for couple more days just for bservation, agrees with plan, denies any fever, chills, nausea, vomiting, diarrhea, constipation or any urinary symptoms. 12/30/2019. No acute events overnight. Patient comfortable resting in no apparent distress, alert and oriented, cooperative with physical examination, just finished breakfast, inquiring about his COVID prognosis, denies any fever, chills, nausea, vomiting. 12/31/2019. No acute events overnight. Comfortably sitting up in distress, patient is very anxious to be discharged to rehab, inquiring when he can go to rehab, patient was informed that he has Covid and it is difficult to find him a place, but we are trying, patient voiced understanding but is still very anxious to leave, denies any fever, chills, nausea, vomiting, diarrhea, constipation or any urinary symptoms. Alert and oriented and cooperative with physical examination. 01/01/2020. Unfortunately patient missed his morning dose of Seroquel yesterday and he was very agitated and aggressive, had to be placed on soft restraints, was able to take his Seroquel this evening and this morning patient is comfortable resting in bed no apparent distress, still asking when he can go home. Denies any fever, chills, nausea, vomiting, diarrhea, constipation or any urinary symptoms. 01/02/2020. No acute events overnight. Patient's repeat COVID-19 is negative, patient is stating that he thinks he had COVID-19 before he came to the hospital, patient is on room air, saturating WNL, alert and oriented, cooperative with physical examination, very pleasant and asking when he can go to rehab, denies any fever, chills, nausea, vomiting. 01/03/2020. No acute events overnight. Pending placement. 01/04/20-no acute events in the last 24 hours. Afebrile. Coronavirus testing is pending at this time. Blood pressure this morning is 100/54 plan is to decrease torsemide to 10 mg p.o. daily. Comfortably in the bed sleeping communicating well. Not in distress. Denies any complaints. 01/05/2020-no acute events in the last 24 hours. Coronavirus testing is negative. Blood sugars are stable. Patient is stable enough to go home today. Physical Exam Vital Signs: Temp Pulse Resp BP Pulse Ox 97.8 F 93 19 97/57 L 100 01/05/20 14:52 01/05/20 14:52 01/05/20 14:52 01/05/20 14:52 01/05/20 14:52 Intake & Output 01/04/20 01/05/20 01/06/20 06:59 06:59 06:59 Intake Total 500 1100 465 Output Total 1900 800 500 Balance -1400 300 -35 Weight 82.3 kg 80.2 kg General appearance: PRESENT: no acute distress, well-developed Head exam: PRESENT: atraumatic Eye exam: PRESENT: PERRLA Mouth exam: PRESENT: moist, tongue midline Teeth exam: PRESENT: poor dentation Neck exam: ABSENT: carotid bruit, JVD, lymphadenopathy, thyromegaly Respiratory exam: PRESENT: clear to auscultation malcom. ABSENT: rales, rhonchi, wheezes Cardiovascular exam: PRESENT: RRR. ABSENT: diastolic murmur, rubs, systolic murmur GI/Abdominal exam: PRESENT: normal bowel sounds, soft. ABSENT: distended, guarding, mass, organolmegaly, rebound, tenderness Rectal exam: PRESENT: deferred Extremities exam: PRESENT: full ROM. ABSENT: calf tenderness, clubbing, pedal edema Neurological exam: PRESENT: alert, awake, oriented to person, oriented to place, oriented to time, oriented to situation, CN II-XII grossly intact. ABSENT: motor sensory deficit Psychiatric exam: PRESENT: appropriate affect, normal mood. ABSENT: homicidal ideation, suicidal ideation Results Laboratory Results: WBC 6.0 10^3/uL (4.0-10.5) 01/05/20 05:32 RBC 4.36 10^6/uL (4.35-5.55) 01/05/20 05:32 Hgb 14.3 g/dL (13.5-17.0) 01/05/20 05:32 Hct 41.6 % (37.9-51.0) 01/05/20 05:32 MCV 96 fl (80-97) 01/05/20 05:32 MCH 32.8 pg (27.0-33.4) 01/05/20 05:32 MCHC 34.4 g/dL (32.0-36.0) 01/05/20 05:32 RDW 14.4 % (11.5-14.0) H 01/05/20 05:32 Plt Count 192 10^3/uL (150-450) 01/05/20 05:32 Lymph % (Auto) 29.2 % (13-45) 01/05/20 05:32 [place] % (Auto) 6.8 % (3-13) 01/05/20 05:32 Eos % (Auto) 2.8 % (0-6) 01/05/20 05:32 Baso % (Auto) 0.2 % (0-2) 01/05/20 05:32 Absolute Neuts (auto) 3.7 10^3/uL (1.7-8.2) 01/05/20 05:32 Absolute Lymphs (auto) 1.8 10^3/uL (0.5-4.7) 01/05/20 05:32 Absolute Monos (auto) 0.4 10^3/uL (0.1-1.4) 01/05/20 05:32 Absolute Eos (auto) 0.2 10^3/uL (0.0-0.6) 01/05/20 05:32 Absolute Basos (auto) 0.0 10^3/uL (0.0-0.2) 01/05/20 05:32 Total Counted 100 12/20/19 18:15 Seg Neutrophils % 61.0 % (42-78) 01/05/20 05:32 Seg Neuts % (Manual) 90 % (42-78) H 12/20/19 18:15 Lymphocytes % (Manual) 7 % (13-45) L 12/20/19 18:15 Monocytes % (Manual) 3 % (3-13) 12/20/19 18:15 Eosinophils % (Manual) 0 % (0-6) 12/20/19 18:15 Basophils % (Manual) 0 % (0-2) 12/20/19 18:15 Abs Neuts (Manual) 8.7 10^3/uL (1.7-8.2) H 12/20/19 18:15 Abs Lymphs (Manual) 0.7 10^3/uL (0.5-4.7) 12/20/19 18:15 Abs Monocytes (Manual) 0.3 10^3/uL (0.1-1.4) 12/20/19 18:15 Absolute Eos (Manual) 0.0 10^3/uL (0.0-0.6) 12/20/19 18:15 Abs Basophils (Manual) 0.0 10^3/uL (0.0-0.2) 12/20/19 18:15 Platelet Estimate Cancelled 01/02/20 05:10 Platelet Comment DECREASED 12/20/19 18:15 Anisocytosis SLIGHT 12/20/19 18:15 Macrocytosis 1+ 12/20/19 18:15 Ovalocytes SLIGHT 12/20/19 18:15 Schistocytes SLIGHT 12/20/19 18:15 D-Dimer 2.14 ug/mL (0.00-0.50) H 01/01/20 13:10 Carbonic Acid 1.30 mmol/L (1.05-1.35) 12/27/19 15:48 HCO3/H2CO3 Ratio 23:1 12/27/19 15:48 ABG pH 7.47 (7.35-7.45) H 12/27/19 15:48 ABG pCO2 43.1 mmHg (35-45) 12/27/19 15:48 ABG pO2 71.4 mmHg (80-100) L 12/27/19 15:48 ABG HCO3 30.5 mmol/L (20-24) H 12/27/19 15:48 ABG Total CO2 31.8 mmol/L (23-27) H 12/27/19 15:48 ABG O2 Saturation 95.2 % (94-98) 12/27/19 15:48 ABG Base Excess 6.1 mmol/L 12/27/19 15:48 VBG pH 7.15 (7.30-7.42) L* 12/20/19 18:15 VBG pCO2 37.2 mmHg (35-63) 12/20/19 18:15 VBG HCO3 12.8 mmol/L (20-32) L 12/20/19 18:15 VBG Base Excess -15.2 mmol/L 12/20/19 18:15 FiO2 2L 12/27/19 15:48 Sodium 131.1 mmol/L (137-145) L 01/04/20 08:39 Potassium 5.0 mmol/L (3.6-5.0) 01/04/20 08:39 Chloride 97 mmol/L (98-107) L 01/04/20 08:39 Carbon Dioxide 31 mmol/L (22-30) H 01/04/20 08:39 Anion Gap 3 (5-19) L 01/04/20 08:39 BUN 39 mg/dL (7-20) H 01/04/20 08:39 Creatinine 1.27 mg/dL (0.52-1.25) H 01/04/20 08:39 Est GFR ( Amer) > 60 (>60) 01/04/20 08:39 Est GFR (Non-Af Amer) Cancelled 12/21/19 14:29 Est GFR (MDRD) Non-Af 55 (>60) L 01/04/20 08:39 Glucose 209 mg/dL (75-110) H 01/04/20 08:39 POC Glucose 259 mg/dL (70-110) H 01/05/20 11:16 Hemoglobin A1c % 7.8 % (4.7-6.0) H 12/20/19 18:15 Calcium 8.4 mg/dL (8.4-10.2) 01/04/20 08:39 Phosphorus 2.3 mg/dL (2.5-4.5) L 12/23/19 06:08 Magnesium 2.1 mg/dL (1.6-2.3) 01/04/20 08:39 Total Bilirubin 1.2 mg/dL (0.2-1.3) 01/04/20 08:39 Direct Bilirubin 0.0 mg/dL (0.0-0.4) 01/04/20 08:39 Neonat Total Bilirubin Not Reportable 01/04/20 08:39 Neonat Direct Bilirubin Not Reportable 01/04/20 08:39 Neonat Indirect Bili Not Reportable 01/04/20 08:39 AST 26 U/L (17-59) 01/04/20 08:39 ALT 17 U/L (<50) 01/04/20 08:39 Alkaline Phosphatase 72 U/L (38-126) 01/04/20 08:39 Total Protein 5.2 g/dL (6.3-8.2) L 01/04/20 08:39 Albumin 2.6 g/dL (3.5-5.0) L 01/04/20 08:39 EGFR Cancelled 12/21/19 14:29 Vitamin B12 704.0 pg/mL (239-931) 12/23/19 06:08 Vitamin D 25-Hydroxy 21.1 ng/mL (14.7-68.3) 12/23/19 06:08 Folate 4.97 ng/mL (>2.76) 12/23/19 06:08 TSH 0.79 uIU/mL (0.47-4.68) 12/21/19 03:15 Free T4 1.02 ng/dL (0.78-2.19) 12/21/19 03:15 Free T3 pg/mL 0.98 pg/mL (2.77-5.27) L 12/21/19 03:15 Urine Color YELLOW 12/20/19 19:39 Urine Appearance CLEAR 12/20/19 19:39 Urine pH 5.0 (5.0-9.0) 12/20/19 19:39 Ur Specific [place] 1.018 12/20/19 19:39 Urine Protein NEGATIVE mg/dL (NEGATIVE) 12/20/19 19:39 Urine Glucose (UA) >=500 mg/dL (NEGATIVE) H 12/20/19 19:39 Urine Ketones TRACE mg/dL (NEGATIVE) H 12/20/19 19:39 Urine Blood NEGATIVE (NEGATIVE) 12/20/19 19:39 Urine Nitrite NEGATIVE (NEGATIVE) 12/20/19 19:39 Urine Bilirubin NEGATIVE (NEGATIVE) 12/20/19 19:39 Urine Urobilinogen NEGATIVE mg/dL (<2.0) 12/20/19 19:39 Ur Leukocyte Esterase NEGATIVE (NEGATIVE) 12/20/19 19:39 Urine WBC (Auto) 2 /HPF 12/20/19 19:39 Urine RBC (Auto) 0 /HPF 12/20/19 19:39 Squamous Epi Cells Auto <1 /HPF 12/20/19 19:39 Urine Mucus (Auto) RARE /LPF 12/20/19 19:39 Urine Ascorbic Acid NEGATIVE (NEGATIVE) 12/20/19 19:39 RPR NONREACTIVE (NONREACTIVE) 12/23/19 06:08 COVID-19 Source NASOPHARYNGEAL 01/02/20 17:15 COVID-19 ([facility]) NOT DETECTED 01/02/20 17:15 Slides for Path Review Cancelled 01/02/20 05:10 Impressions: Chest X-Ray 12/20/19 18:10 IMPRESSION: NO ACUTE RADIOGRAPHIC FINDING IN THE CHEST. Head CT 12/22/19 00:00 IMPRESSION: CHRONIC CHANGES OF ATROPHY AND MICROVASCULAR ISCHEMIA. NO ACUTE PROCESS. EVIDENCE OF ACUTE STROKE: NO. Plan Plan of Treatment: Patient is advised to follow with PCP next week. Time Spent: Greater than 30 Minutes Stroke Is this a Stroke Patient?: No Acute Heart Failure - Is this a Heart Failure Patient?: No
== END 2020-01-05 15:20 | disposition home health service (06) | DRG 637 ==
LOC: ER 18:03 → EH 20:20 → ICU 21:32 → 3W 12-21 18:41 → 3N 12-28 19:15 → 4N 01-04 14:21
PROVIDERS: ADMIT Internal Medicine Critical Care Medicine; ATTEND Internal Medicine
DX: E10.11 Type 1 diabetes mellitus with ketoacidosis with coma (principal); G93.41 Metabolic encephalopathy; U07.1 COVID-19; N17.9 Acute kidney failure, unspecified; I50.32 Chronic diastolic (congestive) heart failure; I13.0 Hypertensive heart and chronic kidney disease with heart failure and stage 1 through stage 4 chronic kidney disease, or unspecified chronic kidney disease; E10.22 Type 1 diabetes mellitus with diabetic chronic kidney disease; N18.3 Chronic kidney disease, stage 3 (moderate); R09.02 Hypoxemia; I25.10 Atherosclerotic heart disease of native coronary artery without angina pectoris; E78.00 Pure hypercholesterolemia, unspecified; R33.9 Retention of urine, unspecified; G30.1 Alzheimer's disease with late onset; F02.80 Dementia in other diseases classified elsewhere, unspecified severity, without behavioral disturbance, psychotic disturbance, mood disturbance, and anxiety; I25.2 Old myocardial infarction; Z95.0 Presence of cardiac pacemaker; Z79.4 Long term (current) use of insulin; Z79.01 Long term (current) use of anticoagulants; Z90.5 Acquired absence of kidney; Z95.1 Presence of aortocoronary bypass graft
CPT/HCPCS: 36415; 51702; 70450; 71045; 80048; 80053; 81001; 82306; 82607; 82746; 82803; 82962; 83036; 83735; 84100; 84439; 84443; 84481; 85025; 85027; 85379; 86592; 87070; 87635; 93005; 93010; 96361; 96374; 99291; C9803; J0456; J0610; J1100; J1630; J1815; J3490; J7030; J7050; J7060; J7120